=== PATIENT | female | born 1940 | race Caucasian/White ===

== ENCOUNTER 2020-06-07 13:37 | Inpatient (IN) ==
[2020-06-07] MEDS ORDERED: PANTOprazole 40 MG in SYRINGE 0 ML IV ONE (14:35)
[2020-06-07] MEDS ORDERED: ONDANSETRON INJ 2 MG/ML 2 ML VIAL IV STA (14:35)
[2020-06-07] MEDS ORDERED: SODIUM CHLORIDE 0.9% 1000ML 500 ML IV ONE (14:35)
--- NOTE | 2020-06-07 14:39 | Emergency Department Note ---
History of Present Illness General Chief complaint: Nausea Stated complaint: N/V Chest pressure Time Seen by Provider: 06/07/20 14:27 Source: patient History of Present Illness Provider complaint: Abdominal pain Onset (ago): week(s) Location: abdomen Radiation: back Severity: severe Pain Consistency: + constant Maximum Pain Intensity: 8 Quality: + sharp Relieved By: + none Associated symptoms: + chest pain, + nausea/vomiting and + shortness of breath (Chronically short of breath without change); no cough and no fever/chills This is an 79-year-old female who presents with abdominal pain starting a week ago. She states the pain is diffuse. She rates it an 8 out of 10 in severity. She describes it as sharp. No modifying factors. It is associated with nausea and vomiting. She states that she saw her GI doctor who told her that she had a very severe case of reflux disease based on an EGD performed last month. She was placed on new medications which she has had difficulty taking due to her nausea. She states also a week ago she developed chest pressure in the middle of her chest without radiation. She states she is always short of breath because of COPD. She is on oxygen daily. She denies any fever, cough or cold symptoms or urinary complaints. She does state that her urine output has been somewhat low recently and that she has had trouble having bowel movements. She denies any black or bloody stools. Home Medications Home Medications Medication Instructions Recorded Confirmed Type clonazepam 1 mg tablet 1 mg PO BID 10/11/19 06/07/20 History docusate sodium 100 mg capsule 100 mg PO BID 10/11/19 06/07/20 History levomilnacipran 80 mg capsule,24 80 mg PO QAM 10/11/19 06/07/20 History hr,extended release levothyroxine 88 mcg capsule 88 mcg PO QAM 10/11/19 06/07/20 History melatonin 10 mg tablet 10 mg PO HS 10/11/19 06/07/20 History potassium chloride 20 mEq 20 meq PO BID 10/11/19 06/07/20 History tablet,extended release spironolactone 25 mg tablet 25 mg PO BID 10/11/19 06/07/20 History trazodone 100 mg tablet 100 mg PO HS tab 10/11/19 06/07/20 History insulin glargine 100 unit/mL 20 unit SQ HS 12/04/19 06/07/20 History subcutaneous solution acetaminophen 500 mg capsule 1,000 mg PO Q6H PRN cap 01/26/20 06/07/20 History cholecalciferol (vitamin D3) 25 25 mcg PO DAILY 01/26/20 06/07/20 History mcg (1,000 unit) capsule furosemide 40 mg tablet 40 mg PO BID 01/26/20 06/07/20 History hydroxyzine HCl 25 mg tablet 50 mg PO TID PRN 01/26/20 06/07/20 History amitriptyline 25 mg PO HS 05/02/20 06/07/20 History sennosides [senna] 8.6 mg PO BID 05/02/20 06/07/20 History ropinirole 0.25 mg tablet 0.25 mg PO HS #30 tab 05/23/20 06/07/20 Rx famotidine 20 mg tablet 20 mg PO BID 30 Days #60 tab 05/31/20 06/07/20 Rx esomeprazole magnesium 40 mg 40 mg PO DAILY #30 cap 06/06/20 06/07/20 Rx capsule,delayed release cyanocobalamin (vitamin B-12) 1,000 mcg IM .Q3 MONTHS 06/07/20 06/07/20 History ondansetron HCl [Zofran] 4 mg PO Q8H PRN 06/07/20 06/07/20 History Allergies Allergy/AdvReac Type Severity Reaction Status Date / Time acetaminophen [From Percocet] Allergy Mild N/V Verified 05/31/20 10:48 adhesive tape Allergy Mild RED AND Verified 05/31/20 10:48 SORE butorphanol Allergy Mild N/V Verified 05/31/20 10:48 lubiprostone [From Amitiza] Allergy Mild Rash Verified 05/31/20 10:48 morphine Allergy Mild SWELLING Verified 05/31/20 10:48 oseltamivir [From Tamiflu] Allergy Mild N/V Verified 05/31/20 10:48 codeine Allergy Unknown SWELLING Verified 05/31/20 10:48 iodine Allergy Unknown Rash Verified 05/31/20 10:48 oxycodone Allergy Unknown AGITATION Verified 05/31/20 10:48 shellfish derived Allergy Unknown SWELLS Verified 05/31/20 10:48 Sulfa (Sulfonamide Allergy Unknown SWELLING Verified 05/31/20 10:48 Antibiotics) Past Med/Surg History Medical History Anxiety disorder Arthritis Asthma Back problem Cervical postlaminectomy syndrome Chronic kidney disease COPD (chronic obstructive pulmonary disease) DDD (degenerative disc disease) Dependence on continuous supplemental oxygen 2 LITERS Diabetes mellitus DVT (deep venous thrombosis) LEGS HTN (hypertension) Hyperlipidemia Obesity Postlaminectomy syndrome of lumbosacral region Presence of intrathecal pump [employer]-- DILAUDID AND SOMETHING ELSE NOT SURE Sleep apnea NO MACHINE - JUST OXYGEN Stomach ulcer HX Surgical History H/O colonoscopy H/O neck surgery H/O: hysterectomy History of knee replacement, total LEFT AND RIGHT History of open reduction and internal fixation (ORIF) procedure RIGHT FOOT Hx laparoscopic cholecystectomy Hx of tonsillectomy Hx of total shoulder replacement RIGHT AND LEFT Previous back surgery Family History Father Cancer Diabetes Hypertension Stomach ulcer Social History Smoking Status: Never smoker Second Hand Exposure: No; Hx Alcohol Use: No Hx Substance Use: No Preferred Language: Ghanaian Communication Ability: Effective Visual Impairment: No Limitations Hearing Ability: Use of Hearing Aid 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 and A total of 10 systems reviewed and were otherwise negative Physical Exam Vital Signs Vital Signs - 24 hr 06/07/20 13:29 06/07/20 13:53 06/07/20 14:03 Temperature 36.9 C Temperature Source Oral Pulse Rate 99 H 87 90 Pulse Rate from SpO2 Sensor 88 89 Respiratory Rate 22 15 11 L Respiratory Depth Normal Blood Pressure 136/82 136/82 Blood Pressure Mean 100 107 Pulse Oximetry 99 100 100 Oxygen Delivery Method Nasal Cannula Oxygen Flow Rate 2 Sepsis Recent Fever Within 48 Hours No Sepsis New/Unexplained Change in Mental Status N/A Sepsis Action Taken by Nursing No Action Required 06/07/20 14:15 06/07/20 14:30 06/07/20 14:45 Temperature Temperature Source Pulse Rate 89 93 H 94 H Pulse Rate from SpO2 Sensor 90 Respiratory Rate 14 15 23 Respiratory Depth Blood Pressure 171/101 H Blood Pressure Mean 124 Pulse Oximetry 100 Oxygen Delivery Method Nasal Cannula Oxygen Flow Rate 2 Sepsis Recent Fever Within 48 Hours Sepsis New/Unexplained Change in Mental Status Sepsis Action Taken by Nursing 06/07/20 15:00 06/07/20 15:21 06/07/20 15:30 Temperature Temperature Source Pulse Rate 89 83 78 Pulse Rate from SpO2 Sensor 89 Respiratory Rate 16 21 20 Respiratory Depth Blood Pressure Blood Pressure Mean Pulse Oximetry 100 Oxygen Delivery Method Oxygen Flow Rate Sepsis Recent Fever Within 48 Hours Sepsis New/Unexplained Change in Mental Status Sepsis Action Taken by Nursing 06/07/20 15:31 06/07/20 15:45 06/07/20 16:00 Temperature Temperature Source Pulse Rate 80 81 83 Pulse Rate from SpO2 Sensor 82 82 83 Respiratory Rate 21 15 16 Respiratory Depth Blood Pressure 156/81 H 171/101 H Blood Pressure Mean 110 117 Pulse Oximetry 100 100 100 Oxygen Delivery Method Oxygen Flow Rate Sepsis Recent Fever Within 48 Hours Sepsis New/Unexplained Change in Mental Status Sepsis Action Taken by Nursing 06/07/20 16:15 Temperature Temperature Source Pulse Rate 80 Pulse Rate from SpO2 Sensor 80 Respiratory Rate 20 Respiratory Depth Blood Pressure Blood Pressure Mean Pulse Oximetry 98 Oxygen Delivery Method Oxygen Flow Rate Sepsis Recent Fever Within 48 Hours Sepsis New/Unexplained Change in Mental Status Sepsis Action Taken by Nursing Constitutional: Vital signs reviewed. Eyes: Pupils are equal round reactive to light. Conjunctiva are noninjected. ENT: Pharynx is clear without erythema or exudate. Mucous membranes are dry. Neck supple without meningeal signs. Respiratory: Clear to auscultation bilaterally. Breath sounds are equal bilaterally. Cardiovascular: Regular rate and rhythm. No rubs or gallops. GI: Soft, distended with diffuse tenderness. No guarding. Bowel sounds are present. Musculoskeletal: No peripheral edema. No lower extremity tenderness. Integumentary: No cyanosis. or jaundice. Neurological: The patient is awake and alert. No focal deficits. Psychiatric: Anxious. Course Administered Medications Discontinued Medications Fentanyl Citrate (Fentanyl Citrate 100 Mcg/2 Ml Vial) 50 mcg IV NOW STA Stop: 06/07/20 15:44 Last Admin: 06/07/20 15:57 Dose: 50 mcg Documented by: [id number] Sodium Chloride (Nss 1000ml) 500 mls @ 999 mls/hr IV .Q31M ONE Stop: 06/07/20 15:05 Last Infusion: 06/07/20 15:46 Dose: 0 mls/hr Documented by: [id number] Admin: 06/07/20 14:55 Dose: 999 mls/hr Documented by: [id number] Pantoprazole Sodium 40 mg/ (Syringe) 10 mls @ 5 mls/min IV NOW ONE Stop: 06/07/20 14:36 Last Admin: 06/07/20 15:18 Dose: 5 mls/min Documented by: [id number] Ondansetron HCl (Ondansetron Inj 2 Mg/Ml 2 Ml Vial) 4 mg IV NOW STA Stop: 06/07/20 14:36 Last Admin: 06/07/20 14:55 Dose: 4 mg Documented by: [id number] Medical Decision Making Differential Diagnosis Dehydration, gastritis, GERD, pancreatitis, bowel obstruction, IBS, [place] Medical Records Attestation: I reviewed the patient's medical records. The patient had an EGD late last month which showed gastritis. She did see Dr. Vieyra of gastroenterology earlier this month who placed her on Pepcid, Protonix and Bentyl for GERD. Home Medications Current Medication List: was personally reviewed by me Laboratory Data Attestation: I reviewed the patient's lab results. Result diagrams: 06/07/20 14:51 06/07/20 14:51 Lab Results 06/07/20 06/07/20 06/07/20 Range/Units 14:51 14:51 14:51 WBC 13.99 H (4.8-10.8) K/uL RBC 4.64 (4.2-5.4) M/uL Hgb 13.4 (12.0-16.0) g/dL Hct 41.4 (37-47) % MCV 89.2 (80-100) fL MCH 28.9 (25-34) pg MCHC 32.4 (32-36) g/dL RDW Std Deviation 41.5 (36.4-46.3) fL RDW Coeff of Kindra 12.8 (11.5-14.5) % Plt Count 321 (130-400) K/uL MPV 9.4 (7.4-10.4) fL Immature Gran % (Auto) 0.2 % Neut % (Auto) 74.3 % Lymph % (Auto) 16.9 % Coleman % (Auto) 7.4 % Eos % (Auto) 1.1 % Baso % (Auto) 0.1 % Neut # (Auto) 10.40 H (1.4-6.5) K/uL Lymph # (Auto) 2.36 (1.2-3.4) K/uL Coleman # (Auto) 1.03 H (0.11-0.59) K/uL Eos # (Auto) 0.15 (0-0.5) K/uL Baso # (Auto) 0.02 (0-0.2) K/uL Immature Gran # (Auto) 0.03 H (0.00-0.02) K/uL PT 10.6 (9.0-12.0) Seconds INR 1.0 (0.9-1.1) APTT 25.7 (21.0-31.0) Seconds PTT Ratio 0.9 Sodium 137 (136-145) mmol/L Potassium 4.3 (3.5-5.1) mmol/L Chloride 101 (98-107) mmol/L Carbon Dioxide 34 H (21-32) mmol/L Anion Gap 1.0 L (3-11) BUN 27 H (7-18) mg/dl Creatinine 1.66 H (0.6-1.2) mg/dl Est Cr Clr Drug Dosing 30.0 ml/min Est GFR ( Amer) 33.4 Est GFR (Non-Af Amer) 28.8 BUN/Creatinine Ratio 16.4 (10-20) Glucose 117 H (70-99) mg/dl Calcium 9.9 (8.5-10.1) mg/dl Total Bilirubin 0.4 (0.2-1) mg/dl AST 12 L (15-37) U/L ALT 24 (12-78) U/L Alkaline Phosphatase 104 (45-117) U/L Troponin I < 0.015 (0-0.045) ng/ml Total Protein 8.1 (6.4-8.2) gm/dl Albumin 3.7 (3.4-5.0) gm/dl Globulin 4.4 H (2.5-4.0) gm/dl Albumin/Globulin Ratio 0.8 L (0.9-2) Lipase 89 (73-393) U/L Imaging Data Radiologist's Impression: CT SCAN OF THE ABDOMEN AND PELVIS WITHOUT IV CONTRAST CLINICAL HISTORY: Generalized abdominal pain. COMPARISON STUDY: Abdominal CT dated 09/07/2019. TECHNIQUE: CT scan of the abdomen and pelvis is performed from the lung bases to the proximal femora. Images are reviewed in the axial, sagittal, and coronal planes. IV contrast was not administered for this examination. Note that the examination was performed in suboptimal fashion without oral and IV contrast. A dose lowering technique was utilized adhering to the principles of ALARA. CT DOSE: 995.85 mGy.cm FINDINGS: Lung bases: The heart is normal in size and without pericardial effusion. The lung bases are clear noting bibasilar scarring/atelectasis. There is a small hiatal hernia. Liver: The unenhanced liver is normal in size, contour, and attenuation. There is no intrahepatic biliary ductal dilatation. Gallbladder: Surgically absent. Spleen: Normal in size and attenuation. Pancreas: The unenhanced pancreas is atrophic and grossly unremarkable. Adrenal glands: Unremarkable. Kidneys: The unenhanced kidneys demonstrate cortical atrophy and are without hydronephrosis. There are no renal calculi identified. Subcentimeter complex cy sts are present in both kidneys. Abdominal vasculature: The abdominal aorta is normal in course and caliber noting mild atherosclerotic calcification. Bowel: The small bowel and colon are normal in course and caliber. The appendix is not identified and reported surgically absent. Peritoneum: There is no intraperitoneal free air or abdominal ascites. Intracranial surgical clips are noted. Lymphadenopathy: None. Pelvic viscera: The bladder is mildly distended but otherwise normal in appearan ce. The uterus is surgically absent. No adnexal lesion is seen. Skeletal structures: An intrathecal device is present in the left lower quadrant abdominal wall. The catheter enters the central spinal canal in the lower thoracic region. The skeletal structures are osteopenic. There is a chronic comp ression deformity of T12 with evidence of previous vertebroplasty. A mild superior end plate compression deformity is also seen in T11. There is moderate to advanced and the sacral spondylosis. No lytic or blastic lesions are seen. Postoperative change is noted in the right femur. Arthritic change is seen in the hips, right greater than left. IMPRESSION: 1. Suboptimal examination without oral and IV contrast. 2. No acute infectious or inflammatory findings are identified in the abdomen or pelvis. 3. There is no bowel obstruction. 4. Chronic and postoperative changes as above. ACT 112: Negative or not required by law. Electronically signed by: Bunny Garland M.D. 06/07/2020 3:33 PM XR chest 1V portable HISTORY: 79 years-old Female Chest Pain acute atypical chest pain COMPARISON: Chest radiograph 11/03/2008 TECHNIQUE: Portable AP view of the chest FINDINGS: Cardiac silhouette is mildly enlarged, unchanged. There is no pneumothorax, pleural effusion, airspace consolidation or overt pulmonary edema. Mild chronic interstitial coarsening. Degenerative changes of the spine. Left shoulder total joint arthroplasty. IMPRESSION: No acute process. ACT 112: Negative or not required by law. The above report was generated using voice recognition software. It may contain grammatical, syntax or spelling errors. Electronically signed by: Guerrero Brizuela M.D. 06/07/2020 3:06 PM ECG Data Attestation: I personally reviewed and interpreted this ECG as follows: Indication: + abdominal pain and + chest pain Rate (beats per minute): 93 Rhythm: + normal sinus ECG Intervals/blocks: + First degree AV block ECG ST segments: + T-wave inversions ECG Findings: + Q waves; no PVCs MDM Narrative I did evaluate the patient as noted above. The patient is presenting with vomiting and abdominal pain she has had for a week. She also complains of chest pressure. She was recently diagnosed with reflux disease and placed on a PPI, H2 kadie and mental. On examination she is dehydrated. She has diffuse tenderness throughout her abdomen. IV access was established. I did treat her with IV fentanyl and Zofran. She was also given normal saline IV. I did place an order for continuous cardiac monitoring. The monitor showed normal sinus rhythm at a rate of 88 bpm. I did order and personally review the patient's 12- lead EKG as described above. She has some T wave inversions in the anterior leads but no ST elevations. I did order and personally reviewed the images of the patient's chest x-ray as described above. Chest x-ray demonstrates no acute process. I did order a urine analysis. I did order and review the patient's blood work as noted in the electronic medical record. Her white blood cell count is 14,000. She is not anemic. Electrolytes are unremarkable. Her creatinine is 1.6 with a BUN of 27. Troponin is negative. LFTs and lipase are unremarkable. I did order a CT of the abdomen and pelvis. I did review the images myself as well as the radiology report as described above. There is no evidence of acute process. I did discuss the test results with the patient. She is feeling better after the fentanyl IV. She does state that she is extremely nervous and would like something for her nerves. She was given 0.5 mg of Ativan sublingually. She will be hospitalized for further care and evaluation and repeat cardiac biomarkers. I did discuss case with the hospitalist and employment evaluator/case manager. Impression & Plan Abdominal pain, Chest pain, Vomiting, Acute dehydration Discharge Plan Visit Data Chief Complaint: Nausea Stated Complaint: N/V Chest pressure ED Provider: Juvenal Wallis Prescriptions Prescriptions: No Action acetaminophen 500 mg capsule 1,000 mg PO Q6H PRN (Reason: Pain) RF: 0 cholecalciferol (vitamin D3) 25 mcg (1,000 unit) capsule 25 mcg PO DAILY RF: 0 hydroxyzine HCl 25 mg tablet 50 mg PO TID PRN (Reason: Anxiety) RF: 0 furosemide [Lasix] 40 mg tablet 40 mg PO BID RF: 0 potassium chloride 20 mEq tablet extended release 20 meq PO BID RF: 0 trazodone 100 mg tablet 100 mg PO HS RF: 0 clonazepam 1 mg tablet 1 mg PO BID RF: 0 Fetzima 80 mg capsule,extended release 24 hr 80 mg PO QAM RF: 0 spironolactone 25 mg tablet 25 mg PO BID RF: 0 melatonin 10 mg tablet 10 mg PO HS RF: 0 levothyroxine 88 mcg capsule 88 mcg PO QAM RF: 0 docusate sodium 100 mg capsule 100 mg PO BID RF: 0 Lantus U-100 Insulin 100 unit/mL solution 20 unit SQ HS RF: 0 esomeprazole magnesium [Nexium] 40 mg capsule,delayed release(DR/EC) 40 mg PO DAILY Qty: 30 RF: 2 famotidine 20 mg tablet 20 mg PO BID 30 Days Qty: 60 RF: 2 ropinirole 0.25 mg tablet 0.25 mg PO HS Qty: 30 RF: 5 cyanocobalamin (vitamin B-12) 1,000 mcg/mL solution 1,000 mcg IM .Q3 MONTHS RF: 0 ondansetron HCl [Zofran] 4 mg tablet 4 mg PO Q8H PRN (Reason: Nausea And Vomiting) RF: 0 sennosides [senna] 8.6 mg Tablet 8.6 mg PO BID RF: 0 amitriptyline 25 mg Tablet 25 mg PO HS RF: 0
--- NOTE | 2020-06-07 14:56 | Electrocardiogram Report ---
Test Reason : Blood Pressure : / mmHG Vent. Rate : 093 BPM Atrial Rate : 093 BPM P-R Int : 228 ms QRS Dur : 088 ms QT Int : 332 ms P-R-T Axes : 059 017 -04 degrees QTc Int : 412 ms Sinus rhythm with 1st degree A-V block Moderate voltage criteria for LVH, may be normal variant Possible Inferior infarct (cited on or before 21-DEC-2000) Abnormal ECG When compared with ECG of 19-FEB-2003 13:58, DE interval has increased Confirmed by Marcelino Carbajal ([id number]) on 06/07/2020 2:55:44 PM Referred By: ER Confirmed By:Marcelino Carbajal
--- NOTE | 2020-06-07 15:07 | XRay Report ---
XR chest 1V portable HISTORY: 79 years-old Female Chest Pain acute atypical chest pain COMPARISON: Chest radiograph 11/03/2008 TECHNIQUE: Portable AP view of the chest FINDINGS: Cardiac silhouette is mildly enlarged, unchanged. There is no pneumothorax, pleural effusion, airspac e consolidation or overt pulmonary edema. Mild chronic interstitial coarsening. Degenerative changes of the spine. Left shoulder total joint arthroplasty. IMPRESSION: No acute process. ACT 112: Negative or not required by law. The above report was generated using voice recognition software. It may contain grammatical, syntax o r spelling errors. Electronically signed by: Guerrero Brizuela M.D. 06/07/2020 3:06 PM
[2020-06-07 15:10] LABS: Basophils # (auto) 0.02 K/uL (0-0.2); Basophils % (auto) 0.1 %; Eosinophils # (auto) 0.15 K/uL (0-0.5); Eosinophils % (auto) 1.1 %; Hematocrit (blood only) 41.4 % (37-47); Hemoglobin 13.4 g/dL (12.0-16.0); Immature Granulocytes # (auto) 0.03 K/uL (0.00-0.02); Immature Granulocytes % (auto) 0.2 %; Lymphocytes # (auto) 2.36 K/uL (1.2-3.4); Lymphocytes % (auto) 16.9 %; Mean Corpuscular Hemoglobin 28.9 pg (25-34); Mean Corpuscular Hgb Conc 32.4 g/dL (32-36); Mean Corpuscular Volume 89.2 fL (80-100); Mean Platelet Volume 9.4 fL (7.4-10.4); Monocytes # (auto) 1.03 K/uL (0.11-0.59); Monocytes % (auto) 7.4 %; Neutrophils % (auto) 74.3 %; Platelet Count 321 K/uL (130-400); RDW Coefficient of Variation 12.8 % (11.5-14.5); RDW Standard Deviation 41.5 fL (36.4-46.3); Red Blood Count 4.64 M/uL (4.2-5.4); White Blood Count 13.99 K/uL (4.8-10.8)
[2020-06-07 15:26] LABS: Alanine Aminotransferase 24 U/L (12-78); Albumin Level 3.7 gm/dl (3.4-5.0); Aspartate Aminotransferase 12 U/L (15-37); BUN Creatinine Ratio 16.4 (10-20); Blood Urea Nitrogen 27 mg/dl (7-18); Calcium 9.9 mg/dl (8.5-10.1); Carbon Dioxide 34 mmol/L (21-32); Chloride 101 mmol/L (98-107); Est GFR (African American) 33.4; Est GFR (Non-African American) 28.8; Glucose 117 mg/dl (70-99); Lipase 89 U/L (73-393); Potassium 4.3 mmol/L (3.5-5.1); Sodium 137 mmol/L (136-145)
[2020-06-07 15:31] LABS: Albumin Globulin Ratio 0.8 (0.9-2); Alkaline Phosphatase 104 U/L (45-117); Bilirubin,Total 0.4 mg/dl (0.2-1); Globulin 4.4 gm/dl (2.5-4.0); Total Protein 8.1 gm/dl (6.4-8.2); Troponin I < 0.015 ng/ml (0-0.045)
--- NOTE | 2020-06-07 15:34 | CT Scan Report ---
CT SCAN OF THE ABDOMEN AND PELVIS WITHOUT IV CONTRAST CLINICAL HISTORY: Generalized abdominal pain. COMPARISON STUDY: Abdominal CT dated 09/07/2019. TECHNIQUE: CT scan of the abdomen and pelvis is performed from the lung bases to the proximal femora. Images are reviewed in the axial, sagittal, and coronal planes. IV contrast was not administered for this examination. Note that the examination was performed in suboptimal fashion without oral and IV contrast. A dose lowering technique was utilized adhering to the principles of ALARA. CT DOSE: 995.85 mGy.cm FINDINGS: Lung bases: The heart is normal in size and without pericardial effusion. The lung bases are clear no ting bibasilar scarring/atelectasis. There is a small hiatal hernia. Liver: The unenhanced liver is normal in size, contour, and attenuation. There is no intrahepatic brendon iary ductal dilatation. Gallbladder: Surgically absent. Spleen: Normal in size and attenuation. Pancreas: The unenhanced pancreas is atrophic and grossly unremarkable. Adrenal glands: Unremarkable. Kidneys: The unenhanced kidneys demonstrate cortical atrophy and are without hydronephrosis. There ar e no renal calculi identified. Subcentimeter complex cysts are present in both kidneys. Abdominal vasculature: The abdominal aorta is normal in course and caliber noting mild atheroscleroti c calcification. Bowel: The small bowel and colon are normal in course and caliber. The appendix is not identified an d reported surgically absent. Peritoneum: There is no intraperitoneal free air or abdominal ascites. Intracranial surgical clips ar e noted. Lymphadenopathy: None. Pelvic viscera: The bladder is mildly distended but otherwise normal in appearance. The uterus is savannah gically absent. No adnexal lesion is seen. Skeletal structures: An intrathecal device is present in the left lower quadrant abdominal wall. The catheter enters the central spinal canal in the lower thoracic region. The skeletal structures are os teopenic. There is a chronic compression deformity of T12 with evidence of previous vertebroplasty. A mild superior end plate compression deformity is also seen in T11. There is moderate to advanced and the sacral spondylosis. No lytic or blastic lesions are seen. Postoperative change is noted in the r ight femur. Arthritic change is seen in the hips, right greater than left. IMPRESSION: 1. Suboptimal examination without oral and IV contrast. 2. No acute infectious or inflammatory findings are identified in the abdomen or pelvis. 3. There is no bowel obstruction. 4. Chronic and postoperative changes as above. ACT 112: Negative or not required by law. Electronically signed by: Bunny Garland M.D. 06/07/2020 3:33 PM
[2020-06-07] MEDS ORDERED: fentaNYL citrate 100 MCG/2 ML VIAL IV STA (15:43)
[2020-06-07 15:49] LABS: Partial Thromboplastin Ratio 0.9; Partial Thromboplastin Time 25.7 Seconds (21.0-31.0); Prothrombin Time 10.6 Seconds (9.0-12.0)
--- NOTE | 2020-06-07 16:55 | History & Physical Report ---
Date of Service June 07, 2020 Assessment & Plan (1) Nausea and vomiting: Ondansetron IV 4 mg every 4 hourly as needed ?secondary to GERD vs. anxiety vs. pain Hold diuretics (no prior history of CHF per patient), start IV fluids Consult gastroenterology (2) GERD (gastroesophageal reflux disease): Due to nausea and vomiting will switch medication to IV Given recent EGD will start carafate Switch esomeprazole to pantoprazole IV Switch famotidine PO to IV (3) Bloating: Treatment for GERD as above (4) Abdominal pain: Difficult for patient to delineate her chronic from any acute pain. Mostly appears to be chronic at this time. CT abdomen pelvis reassuring. Consult pain management with regards to her most severe pain radiating down her sides which I suspect is related to her back. (5) IBS (irritable bowel syndrome): Continue Bentyl (6) Cervical postlaminectomy syndrome: (7) Anxiety disorder: Unclear if this is significantly contributing. Continue her usual clonazepam 1mg PO BID, Levomilnacipran 80mg PO QAM, Amitriptyline 25mg PO HS, trazodone 100mg PO HS. Ativan 0.5mg IV PRN. (8) Chronic constipation: Stool burden does not appear excessive on CT. Patient reports requiring enemas at home. (9) Diabetes mellitus: HbA1C unknown. Repeat with AM labs. Novolog correction factor. (10) HTN (hypertension): Hold diuretics due to reduced oral intake. No Hx CHF per patient. (11) Restless legs syndrome (RLS): (12) Thyroid disease: TSH added to ER labs. Continue levothyroxine 88 mcg PO daily (13) Presence of intrathecal pump: (14) Sleep apnea: Not on CPAP. Monitor for nocturnal hypoxia. (15) COPD (chronic obstructive pulmonary disease): No acute exacerbation. On no maintenance inhalers. Admission and Anticipated Discharge Date Admission Date: 06/07/2020 History of Present Illness Chief Complaint: Nausea, vomiting, abdominal pain Primary Care Provider: Ena Coreas MD Miriam Rubalcava is an 79 year old female who presents to the ER with nausea, vomiting and abdominal pain. Difficult to get a clear history from the patient as to what symptoms are chronic or acute. She reports having nausea and vomiting severely getting progressively worse over the last week. The main thing she is concerned about is getting something for her "nerves". She notes multiple prior similar episodes for which she has been hospitalized in [facility] but tells me they did not do anything for her except for IV fluids. When I mentioned giving Ativan for her anxiety her notes she has had this on multiple prior hospitalizations which has been helpful. She was recently diagnosed with uncontrolled GERD and her omeprazole was switched to pantoprazole BID although esomeprazole listed on her med rec. She is unable to tell me her medications or why/when they were changed. She is unsure whether the change in medications is what made things worse. She has multiple chronic pains. The most severe of which appears to be coming from her back radiating down both her sides. She also reports her problems have been since her pain pump was replaced approximately 3 years ago and wonders whether it is working problem. She reports severity 9/10 pain and is requesting something for this. It is worse on any movement. She was recently referred to neurosurgery at [place] for evaluation by neurology for chronic thoracolumbar pain/radiculopathy/spinal stenosis and follows with pain management with multiple side effects to opiates including morphine, codeine and oxycodone listed in EHR. She is unable to tell me if any other pain medications have worked before in the past. She notes taking acetaminophen at home but this doesn't work. In addition to her back pain she also has suprapubic pain but is moderate compared to her other pains. Unable to tell me much about this other than it is chronic. In addition she has epigastric pain, worse on palpation. No worse with oral intake. Allergies Allergy/AdvReac Type Severity Reaction Status Date / Time acetaminophen [From Percocet] Allergy Mild N/V Verified 05/31/20 10:48 adhesive tape Allergy Mild RED AND Verified 05/31/20 10:48 SORE butorphanol Allergy Mild N/V Verified 05/31/20 10:48 lubiprostone [From Amitiza] Allergy Mild Rash Verified 05/31/20 10:48 morphine Allergy Mild SWELLING Verified 05/31/20 10:48 oseltamivir [From Tamiflu] Allergy Mild N/V Verified 05/31/20 10:48 codeine Allergy Unknown SWELLING Verified 05/31/20 10:48 iodine Allergy Unknown Rash Verified 05/31/20 10:48 oxycodone Allergy Unknown AGITATION Verified 05/31/20 10:48 shellfish derived Allergy Unknown SWELLS Verified 05/31/20 10:48 Sulfa (Sulfonamide Allergy Unknown SWELLING Verified 05/31/20 10:48 Antibiotics) Home Medications Home Medications Medication Instructions Recorded Confirmed Type clonazepam 1 mg tablet 1 mg PO BID 10/11/19 06/07/20 History docusate sodium 100 mg capsule 100 mg PO BID 10/11/19 06/07/20 History levomilnacipran 80 mg capsule,24 80 mg PO QAM 10/11/19 06/07/20 History hr,extended release levothyroxine 88 mcg capsule 88 mcg PO QAM 10/11/19 06/07/20 History melatonin 10 mg tablet 10 mg PO HS 10/11/19 06/07/20 History potassium chloride 20 mEq 20 meq PO BID 10/11/19 06/07/20 History tablet,extended release spironolactone 25 mg tablet 25 mg PO BID 10/11/19 06/07/20 History trazodone 100 mg tablet 100 mg PO HS tab 10/11/19 06/07/20 History insulin glargine 100 unit/mL 20 unit SQ HS 12/04/19 06/07/20 History subcutaneous solution acetaminophen 500 mg capsule 1,000 mg PO Q6H PRN cap 01/26/20 06/07/20 History cholecalciferol (vitamin D3) 25 25 mcg PO DAILY 01/26/20 06/07/20 History mcg (1,000 unit) capsule furosemide 40 mg tablet 40 mg PO BID 01/26/20 06/07/20 History hydroxyzine HCl 25 mg tablet 50 mg PO TID PRN 01/26/20 06/07/20 History amitriptyline 25 mg PO HS 05/02/20 06/07/20 History sennosides [senna] 8.6 mg PO BID 05/02/20 06/07/20 History ropinirole 0.25 mg tablet 0.25 mg PO HS #30 tab 05/23/20 06/07/20 Rx famotidine 20 mg tablet 20 mg PO BID 30 Days #60 tab 05/31/20 06/07/20 Rx esomeprazole magnesium 40 mg 40 mg PO DAILY #30 cap 06/06/20 06/07/20 Rx capsule,delayed release cyanocobalamin (vitamin B-12) 1,000 mcg IM .Q3 MONTHS 06/07/20 06/07/20 History ondansetron HCl [Zofran] 4 mg PO Q8H PRN 06/07/20 06/07/20 History Past Med/Surg History Medical History Anxiety disorder Arthritis Asthma Back problem Cervical postlaminectomy syndrome Chronic kidney disease COPD (chronic obstructive pulmonary disease) DDD (degenerative disc disease) Dependence on continuous supplemental oxygen 2 LITERS Diabetes mellitus DVT (deep venous thrombosis) LEGS HTN (hypertension) Hyperlipidemia Obesity Postlaminectomy syndrome of lumbosacral region Presence of intrathecal pump [employer]-- DILAUDID AND SOMETHING ELSE NOT SURE Sleep apnea NO MACHINE - JUST OXYGEN Stomach ulcer HX Surgical History H/O colonoscopy H/O neck surgery H/O: hysterectomy History of knee replacement, total LEFT AND RIGHT History of open reduction and internal fixation (ORIF) procedure RIGHT FOOT Hx laparoscopic cholecystectomy Hx of tonsillectomy Hx of total shoulder replacement RIGHT AND LEFT Previous back surgery Family History Father Cancer Diabetes Hypertension Stomach ulcer Social History Smoking Status: Never smoker Second Hand Exposure: No; Do You Dip or Chew Tobacco: No; Tobacco Cessation Education Requested by Patient: No Hx Alcohol Use: No Hx Substance Use: No Preferred Language: Thai Communication Ability: Effective Visual Impairment: No Limitations Hearing Ability: Use of Hearing Aid Team Leader/Research Psychologist Required: No Beliefs That Will Affect Care: None marital status: Current Living Situation: Spouse current occupational status: retired Other Information That Helps Us Care for You: No Feels Safe at Home: Yes Safety Concerns: Feels Safe At This Time Assistive Devices: Glasses and Oxygen - Continuous Review of Systems Review of Systems: All systems reviewed & are unremarkable except as noted in HPI & below Constitutional: + body aches, + fatigue, + malaise, + weakness and + insomnia; no fever and no chills Eyes: no problem reported Ear, Nose, Mouth, Throat: + nasal congestion Respiratory: no cough Gastrointestinal: + abdominal pain, + bloating, + heartburn, + dysphagia and + diarrhea/loose stools Genitourinary: no dysuria, no difficulty urinating and no urinary frequency Integumentary: no rash Neurologic: + unsteadiness and + generalized weakness; no radiating pain Psychiatric: + hopelessness Physical Exam Constitutional: + morbidly obese; + not well nourished Eyes: + anicteric sclerae; normal pupil size ENMT: external ear and nose normal, oropharynx normal Neck: + short neck and + thick neck Respiratory: normal respiratory effort, lungs clear to auscultation Cardiovascular: Rate/Rhythm: regular rate and regular rhythm Heart Sounds: no murmur Extremities: + pedal edema (1+ to mid shins equal b/l) Gastrointestinal (Abdomen): Inspection/Auscultation: + abdomen distended (ob courtney abdomen) and normal bowel sounds Percussion/Palpation: + abdomen tender (suprapubic and epigastric) and abdomen soft; no guarding and abdomen not rigid Musculoskeletal: Spine: + paraspinal tenderness Skin: no rashes, warm and dry Neurologic: moves all extremities and awake; not confused Speech / Cognition: normal speech Motor/Sensory: no tremor Psychiatric: Orientation: alert and oriented x 3 Affect: + anxious affect Mood: + anxious mood Genitourinary: no CVA tenderness Results & Data Results & Data ([facility]) Vital Signs (Past 12 Hours) Vital Signs Temp Pulse Resp BP Pulse Ox 06/07/20 16:15 80 20 98 06/07/20 16:00 83 16 171/101 H 100 06/07/20 15:45 81 15 100 06/07/20 15:31 80 21 156/81 H 100 06/07/20 15:30 78 20 06/07/20 15:21 83 21 06/07/20 15:00 89 16 100 06/07/20 14:45 94 H 23 171/101 H 06/07/20 14:30 93 H 15 06/07/20 14:15 89 14 100 06/07/20 14:03 90 11 L 100 06/07/20 13:53 87 15 136/82 100 06/07/20 13:29 36.9 C 99 H 22 136/82 99 Diagnostic Findings XR chest 1V portable IMPRESSION: No acute process. CT SCAN OF THE ABDOMEN AND PELVIS WITHOUT IV CONTRAST IMPRESSION: 1. Suboptimal examination without oral and IV contrast. 2. No acute infectious or inflammatory findings are identified in the abdomen or pelvis. 3. There is no bowel obstruction. 4. Chronic and postoperative changes as above. ECG Indication: abdominal pain Rate (beats per minute): 93 Rhythm: normal sinus Findings: + other (LVH) and + 1st degree AV block Comparison ECG Date: from Change: no significant change Code Status & VTE Plan Code Status All treatment outside of a cardiac arrest VTE Prophylaxis Plan VTE Prophylaxis will be ordered: Yes PG Care Time/CCT Total # of Minutes Spent Total Time Spent with Patient: Total time spent is greater than 50% in coordination of care (as documented) at patient's floor/unit and/or counseling patient: Coding Level of Care Code 80501 OBS Care - Level 3 Diagnoses Nausea and vomiting R11.2 GERD (gastroesophageal reflux disease) K21.9 Bloating R14.0 Abdominal pain R10.9 IBS (irritable bowel syndrome) K58.9 Cervical postlaminectomy syndrome M96.1 Anxiety disorder F41.9 Chronic constipation K59.09 Diabetes mellitus E11.9 HTN (hypertension) I10 Restless legs syndrome (RLS) G25.81 Thyroid disease E07.9 Presence of intrathecal pump Z97.8 Sleep apnea G47.30 COPD (chronic obstructive pulmonary disease) J44.9
[2020-06-07] MEDS ORDERED: LORazepam 1 MG TAB SL STA (17:27)
[2020-06-07] MEDS ORDERED: LORazepam 0.5 MG TAB ONE (17:39)
[2020-06-07] MEDS ORDERED: ONDANSETRON INJ 2 MG/ML 2 ML VIAL ONE (18:42)
[2020-06-07] MEDS ORDERED: hydrOXYzine HCl 25 MG TAB PO PRN (19:33)
[2020-06-07] MEDS: clonazePAM 1 MG TAB PO SCH (20:18)
[2020-06-07] MEDS: ACETAMINOPHEN 325 MG TAB PO PRN (20:19)
[2020-06-07] MEDS ORDERED: LORazepam 1 MG/2 ML VIAL IV STA (20:23)
[2020-06-07] MEDS: LORazepam 0.5 MG/1 ML VIAL IV PRN (20:29)
[2020-06-07] MEDS ORDERED: POTASSIUM CHLORIDE CRTAB 20 MEQ TABCR PO SCH (21:00)
[2020-06-07] MEDS: MELATONIN 3 MG TAB PO SCH (21:09)
[2020-06-07] MEDS: SENNA 8.6 MG TAB PO SCH (21:09)
[2020-06-07] MEDS: rOPINIRole HCL 0.25 MG TABLET PO SCH (21:09)
[2020-06-07] MEDS: DOCUSATE SODIUM 100 MG CAP PO SCH (21:10)
[2020-06-07] MEDS: traZODone HCL 100 MG TAB PO SCH (21:10)
[2020-06-07] MEDS: AMITRIPTYLINE HCL 25 MG TAB PO SCH (21:10)
[2020-06-07] MEDS: FAMOTIDINE 20 MG in SYRINGE 3 ML IV SCH (21:10)
[2020-06-07] MEDS: NSS + 20MEQ KCL 20 MEQ/1,000 ML BAG IV SCH (21:11)
[2020-06-07] MEDS: SUCRALFATE 1 GM/10 ML UDC PO SCH (21:14)
[2020-06-07] MEDS: ALUMINUM/MAGNESIUM SUSP 18 ML, LIDOCAINE HCL VISCOUS 2% 6 ML, BARCODE IDENTIFIER 1 EA PO ONE ×2 (22:37→23:32)
[2020-06-07] MEDS ORDERED: GLUCOSE 10 TABS/TUBE PO PRN (22:59)
[2020-06-07] MEDS ORDERED: GLUCAGON FOR INJ 1 MG VIAL SQ PRN (22:59)
[2020-06-07] MEDS ORDERED: GLUCOSE 40% GEL 15 GM TUBE PO PRN (22:59)
[2020-06-07] MEDS ORDERED: DEXTROSE 50% 50 ML SYRINGE IV PRN (22:59)
[2020-06-07] MEDS ORDERED: CARBOHYDRATES FOR HYPOGLYCEMIA PO PRN (22:59)
[2020-06-07] MEDS: ONDANSETRON INJ 2 MG/ML 2 ML VIAL IV PRN (23:19)
[2020-06-08] MEDS: NSS + 20MEQ KCL 20 MEQ/1,000 ML BAG IV SCH (04:18)
[2020-06-08] MEDS: LEVOTHYROXINE SODIUM 88 MCG TABLET PO SCH (04:18)
[2020-06-08] MEDS ORDERED: Nursing to Pharmacy Communication SCH ×2 (05:45→15:45)
[2020-06-08] MEDS: INSULIN ASPART 100 UNITS/ML 3 ML PEN SC SCH ×4 (05:52→21:11)
[2020-06-08] MEDS: ONDANSETRON INJ 2 MG/ML 2 ML VIAL IV PRN ×2 (05:57→13:06)
[2020-06-08 06:17] LABS: Basophils # (auto) 0.04 K/uL (0-0.2); Basophils % (auto) 0.4 %; Eosinophils # (auto) 0.16 K/uL (0-0.5); Eosinophils % (auto) 1.4 %; Hematocrit (blood only) 37.2 % (37-47); Immature Granulocytes # (auto) 0.03 K/uL (0.00-0.02); Immature Granulocytes % (auto) 0.3 %; Lymphocytes # (auto) 3.01 K/uL (1.2-3.4); Lymphocytes % (auto) 26.7 %; Mean Corpuscular Hemoglobin 29.2 pg (25-34); Mean Corpuscular Hgb Conc 32.3 g/dL (32-36); Mean Corpuscular Volume 90.5 fL (80-100); Mean Platelet Volume 9.3 fL (7.4-10.4); Monocytes # (auto) 0.74 K/uL (0.11-0.59); Monocytes % (auto) 6.6 %; Neutrophils # (auto) 7.28 K/uL (1.4-6.5); Neutrophils % (auto) 64.6 %; Platelet Count 313 K/uL (130-400); Red Blood Count 4.11 M/uL (4.2-5.4); White Blood Count 11.26 K/uL (4.8-10.8)
[2020-06-08 06:50] LABS: Albumin Level 3.1 gm/dl (3.4-5.0); BUN Creatinine Ratio 14.7 (10-20); Calcium 8.9 mg/dl (8.5-10.1); Creatinine Clr Calc Pharmacy 31.4 ml/min; Est GFR (African American) 36.3; Est GFR (Non-African American) 31.3
[2020-06-08 06:52] LABS: Albumin Globulin Ratio 0.8 (0.9-2); Bilirubin,Total 0.6 mg/dl (0.2-1); Globulin 3.9 gm/dl (2.5-4.0)
[2020-06-08] MEDS ORDERED: INSULIN ASPART 100 UNITS/ML 3 ML PEN SC SCH (07:30)
[2020-06-08 07:31] LABS: Estimated Average Glucose 151 mg/dl; Hemoglobin A1C 6.9 % (4.5-5.6)
[2020-06-08] MEDS: FAMOTIDINE 20 MG in SYRINGE 3 ML IV SCH ×2 (08:32→20:34)
[2020-06-08] MEDS: clonazePAM 1 MG TAB PO SCH ×2 (08:35→20:28)
[2020-06-08] MEDS: SUCRALFATE 1 GM/10 ML UDC PO SCH ×4 (08:35→20:28)
[2020-06-08] MEDS: DOCUSATE SODIUM 100 MG CAP PO SCH ×2 (08:37→20:30)
[2020-06-08] MEDS: SENNA 8.6 MG TAB PO SCH ×2 (08:37→20:28)
[2020-06-08] MEDS: PANTOprazole 40 MG in SYRINGE 0 ML IV SCH ×2 (08:49→20:30)
[2020-06-08] MEDS: CHOLECALCIFEROL 1,000 UNITS 25 MCG TAB PO SCH (08:49)
[2020-06-08] MEDS: PROMETHAZINE HCL 12.5 MG in SODIUM CHLORIDE 0.9% 50 ML IV PRN ×2 (09:06→15:50)
[2020-06-08] MEDS ORDERED: PANTOprazole 40 MG in SYRINGE 0 ML IV SCH (11:00)
--- NOTE | 2020-06-08 12:23 | Gastrointestinal Consultation ---
Date of Consultation June 08, 2020 Assessment & Plan (1) Abdominal pain: (2) Nausea and vomiting: (3) GERD (gastroesophageal reflux disease): (4) Chronic constipation: Recommend Continuing Pantoprazole 40 mg IV BID Recommend continuing Carafate 1 g QID x 10 days As constipation can lead to worsening GERD symptoms, I would recommend a bowel regimen with Miralax 17 g in 8 oz glass of water twice daily. Recommend a single dose of Relistor 12 mg SQ now Continue supportive care Advance diet as tolerated. History of Present Illness Reason for Consultation: GERD, Nausea, Vomiting and Abdominal pain Attending Physician: Corey Haney, History of Present Illness Miriam Rubalcava is an 79 yo female well known to our service as she was just seen by my partner, Dr. Vieyra, on 05/31/2020. In Mid-April, she underwent an EGD with Soria pH monitor placement. She was noted to have mild gastritis on biopsies of the gastric antrum, but no evidence of H. pylori. Her Soria pH interpretation noted abnormal acid exposure while on acid-suppressive therapy. Her Omeprazole was switched to Pantoprazole 40 mg BID, and her Famotidine was increased to 20 mg by mouth twice daily. She states that she, "did not tolerate the new medication," and it was switched to Nexium 40 mg BID. She states that she has continued to have persistent symptoms despite an increase in her medications. She presented to the ER yesterday, with GERD, nausea with recurrent vomiting, and abdominal pain. She was noted to have a normal H/H in the ER, and a CT abd/pelvis showed no acute findings. She was subsequently admitted and placed on Pantoprazole 40 mg IV BID, as well as Carafate 1g QID. She states that she has not had any further vomiting. She denies any dysphagia or odynophagia, and denies hematemesis or melena. She does continue to complain of chronic abdominal pain, rated as 4/10 in intensity, which she cannot local ize. She denies any alleviating or exacerbating factors. She states that her pain radiates down her sides and into her back. She does have a pain pump for chronic back issues. Of note, she has not had a BM since Wednesday of this week. She denies any fevers, chills, hematochezia, jaundice, acolic stools, dark urine or pruritus. She has no further complaints. Allergies Allergy/AdvReac Type Severity Reaction Status Date / Time acetaminophen [From Percocet] Allergy Mild N/V Verified 05/31/20 10:48 adhesive tape Allergy Mild RED AND Verified 05/31/20 10:48 SORE butorphanol Allergy Mild N/V Verified 05/31/20 10:48 lubiprostone [From Amitiza] Allergy Mild Rash Verified 05/31/20 10:48 morphine Allergy Mild SWELLING Verified 05/31/20 10:48 oseltamivir [From Tamiflu] Allergy Mild N/V Verified 05/31/20 10:48 codeine Allergy Unknown SWELLING Verified 05/31/20 10:48 iodine Allergy Unknown Rash Verified 05/31/20 10:48 oxycodone Allergy Unknown AGITATION Verified 05/31/20 10:48 shellfish derived Allergy Unknown SWELLS Verified 05/31/20 10:48 Sulfa (Sulfonamide Allergy Unknown SWELLING Verified 05/31/20 10:48 Antibiotics) Home Medications Home Medications Medication Instructions Recorded Confirmed Type clonazepam 1 mg tablet 1 mg PO BID 10/11/19 06/07/20 History docusate sodium 100 mg capsule 100 mg PO BID 10/11/19 06/07/20 History levomilnacipran 80 mg capsule,24 80 mg PO QAM 10/11/19 06/07/20 History hr,extended release levothyroxine 88 mcg capsule 88 mcg PO QAM 10/11/19 06/07/20 History melatonin 10 mg tablet 10 mg PO HS 10/11/19 06/07/20 History potassium chloride 20 mEq 20 meq PO BID 10/11/19 06/07/20 History tablet,extended release spironolactone 25 mg tablet 25 mg PO BID 10/11/19 06/07/20 History trazodone 100 mg tablet 100 mg PO HS tab 10/11/19 06/07/20 History insulin glargine 100 unit/mL 20 unit SQ HS 12/04/19 06/07/20 History subcutaneous solution acetaminophen 500 mg capsule 1,000 mg PO Q6H PRN cap 01/26/20 06/07/20 History cholecalciferol (vitamin D3) 25 25 mcg PO DAILY 01/26/20 06/07/20 History mcg (1,000 unit) capsule furosemide 40 mg tablet 40 mg PO BID 01/26/20 06/07/20 History hydroxyzine HCl 25 mg tablet 50 mg PO TID PRN 01/26/20 06/07/20 History amitriptyline 25 mg PO HS 05/02/20 06/07/20 History sennosides [senna] 8.6 mg PO BID 05/02/20 06/07/20 History ropinirole 0.25 mg tablet 0.25 mg PO HS #30 tab 05/23/20 06/07/20 Rx famotidine 20 mg tablet 20 mg PO BID 30 Days #60 tab 05/31/20 06/07/20 Rx esomeprazole magnesium 40 mg 40 mg PO DAILY #30 cap 06/06/20 06/07/20 Rx capsule,delayed release cyanocobalamin (vitamin B-12) 1,000 mcg IM .Q3 MONTHS 06/07/20 06/07/20 History ondansetron HCl [Zofran] 4 mg PO Q8H PRN 06/07/20 06/07/20 History Patient History Medical History Anxiety disorder Arthritis Asthma Back problem Cervical postlaminectomy syndrome Chronic kidney disease COPD (chronic obstructive pulmonary disease) DDD (degenerative disc disease) Dependence on continuous supplemental oxygen 2 LITERS Diabetes mellitus DVT (deep venous thrombosis) LEGS HTN (hypertension) Hyperlipidemia Obesity Postlaminectomy syndrome of lumbosacral region Presence of intrathecal pump [employer]-- DILAUDID AND SOMETHING ELSE NOT SURE Sleep apnea NO MACHINE - JUST OXYGEN Stomach ulcer HX Surgical History H/O colonoscopy H/O neck surgery H/O: hysterectomy History of knee replacement, total LEFT AND RIGHT History of open reduction and internal fixation (ORIF) procedure RIGHT FOOT Hx laparoscopic cholecystectomy Hx of tonsillectomy Hx of total shoulder replacement RIGHT AND LEFT Previous back surgery Family History Father Cancer Diabetes Hypertension Stomach ulcer Social History Smoking Status: Never smoker Second Hand Exposure: No; Do You Dip or Chew Tobacco: No; Tobacco Cessation Education Requested by Patient: No Hx Alcohol Use: No Hx Substance Use: No Preferred Language: Mohawk Communication Ability: Effective Visual Impairment: No Limitations Hearing Ability: Use of Hearing Aid Research Project Coordinator Required: No Beliefs That Will Affect Care: None marital status: Current Living Situation: Spouse current occupational status: retired Other Information That Helps Us Care for You: No Feels Safe at Home: Yes Safety Concerns: Feels Safe At This Time Assistive Devices: Oxygen - Continuous and Walker Review of Systems Review of Systems: All systems reviewed & are unremarkable except as noted in HPI & below Physical Exam Constitutional: + ill appearing and + obese; no acute distress Eyes: + anicteric sclerae ENMT: external ear and nose normal, oropharynx normal Neck: trachea midline, no thyromegaly Respiratory: normal respiratory effort, lungs clear to auscultation Cardiovascular: RRR, no murmur, no edema Gastrointestinal (Abdomen): Inspection/Auscultation: abdomen normal to inspection and normal bowel sounds; abdomen not distended Percussion/Palpation: + abdomen tender and abdomen soft; no guarding, abdomen not rigid and no hepatosplenomegaly Pain pump palpable in LUQ Skin: no rashes, warm and dry Psychiatric: A+Ox3, euthymic affect Results & Data ([facility]) Vital Signs (Past 12 Hours) Vital Signs Temp Pulse Resp BP BP Pulse Ox 06/08/20 07:36 37.0 C 74 18 144/82 H 97 06/08/20 03:21 36.8 C 81 21 127/74 97 PG Care Time/CCT Total # of Minutes Spent Total Time Spent with Patient: Total time spent is greater than 50% in coordination of care (as documented) at patient's floor/unit and/or counseling patient: Coding Level of Care Code 56412 Initial Inpt Care Lvl 3 Diagnoses Abdominal pain R10.9 Nausea and vomiting R11.2 GERD (gastroesophageal reflux disease) K21.9 Chronic constipation K59.09
[2020-06-08] MEDS ORDERED: METHYLNALTREXONE BROMIDE 12 MG/0.6 ML VIAL SQ ONE (12:45)
[2020-06-08] MEDS: POLYETHYLENE (MIRALAX) 17 GM PACK PO SCH ×2 (13:39→20:30)
--- NOTE | 2020-06-08 16:22 | Hospitalist Progress Note ---
Date of Service June 08, 2020 Assessment & Plan (1) Nausea and vomiting: suspect GERD and constipation -manage both as below -follow clinically/serial exams (2) GERD (gastroesophageal reflux disease): carafate, protonix, pepcid, follow -?hopefully improvement with bowel regimen (3) Chronic constipation: miralax, relistor plan as per GI. ongoing close f/u and escalate if needed follow bowels, serial exams (4) Chronic back pain: "failed back syndrome" but where her pain is now and how she examines, i suspect a heavy component of biomechanical pain from Lspine paraspinals. once her belly is feeling better i would also like to examine pelvic stabilizing muscles and i harbor suspicions that these muscles contribute as well -extensive discussions on this, suspect that while it might take a while for effect, she would be fairly likely to benefit from trial of OMT directed at soft tissue driving the biomechanical part of her pain (5) IBS (irritable bowel syndrome): Continue Bentyl bowel regimen as above (6) Diabetes mellitus: continue currrent care and continue to follow sugars (7) Anxiety disorder: home meds reassurance, explanations, supportive care all seems to help (8) HTN (hypertension): follow on current meds, BP control reasonable. (9) Restless legs syndrome (RLS): (10) Thyroid disease: TSH added to ER labs. Continue levothyroxine 88 mcg PO daily (11) Presence of intrathecal pump: (12) Sleep apnea: Not on CPAP. Monitor for nocturnal hypoxia. (13) COPD (chronic obstructive pulmonary disease): No acute exacerbation. On no maintenance inhalers. (14) Constipation: (15) Cervical postlaminectomy syndrome: (16) DVT prophylaxis: lovenox Admission and Anticipated Discharge Date Admission Date: June 07, 2020 Subjective had a BM just before i saw her - liquid. notes belly pain worsening for much of the last year - just gradually worsened to where it got to be too much. lower abdominal - sharp and stabbing at times - always there, sometimes less than others, sometimes worsens. chronically constipated. also ongoing epigastric pain/nausea - dry heaves starting in the last week - prior to that not really an issue as much - but was still having some pain - EGD a few weeks ago "he said i had the worst GERD he had ever seen and he talked to his colleagues and it was the worst they had ever seen as well" chronic back pain - many neck surgeries, many low back surgeries. right now pain mostly in low back bilaterally. normally doesn't really go down legs - lately has been feeling it on front of legs but has also been at the same time as the abdominal pain worsening. has appt [facility] in 2wks. both wants to be able to make it to that and is equally reticent to go because she really doesn't want another surgery. Review of Systems Review of Systems: All systems reviewed & are unremarkable except as noted in HPI & below Physical Exam Physical Exam: gen aaox3 pleasant nad heent nc at mmm breathing unlabored no accessory muscles good effort abd (+) epigastric tenderness no guarding no rebound, b/l lower abdominal tenderness no guarding no rebound msk/ost - b/l l umbar paraspinals high tone/tender/decreased ROM Results & Data Results & Data ([facility]) Vital Signs (Past 12 Hours) Vital Signs Temp Pulse Resp BP Pulse Ox 06/08/20 07:36 98.6 F 74 18 144/82 H 97 PG Care Time/CCT Total # of Minutes Spent Total Time Spent with Patient: Total time spent is greater than 50% in coordination of care (as documented) at patient's floor/unit and/or counseling patient: Coding Level of Care Code 55124 Subseq Hosp Care Lvl 3 Diagnoses Nausea and vomiting R11.2 GERD (gastroesophageal reflux disease) K21.9 Chronic constipation K59.09 Chronic back pain M54.9; G89.29 IBS (irritable bowel syndrome) K58.9 Diabetes mellitus E11.9 Anxiety disorder F41.9 HTN (hypertension) I10 Restless legs syndrome (RLS) G25.81 Thyroid disease E07.9 Presence of intrathecal pump Z97.8 Sleep apnea G47.30 COPD (chronic obstructive pulmonary disease) J44.9 Constipation K59.00 Cervical postlaminectomy syndrome M96.1 DVT prophylaxis Z29.9
--- NOTE | 2020-06-08 16:52 | Billing Data ---
Date of Service June 08, 2020 Coding Level of Care Code 69258 Subseq Obs Care Lvl 3 Comment disregard [id number] - entered in error
[2020-06-08] MEDS: ACETAMINOPHEN 325 MG TAB PO PRN (19:23)
[2020-06-08] MEDS: LORazepam 0.5 MG/1 ML VIAL IV PRN (19:23)
[2020-06-08] MEDS: MELATONIN 3 MG TAB PO SCH (20:29)
[2020-06-08] MEDS: rOPINIRole HCL 0.25 MG TABLET PO SCH (20:29)
[2020-06-08] MEDS: AMITRIPTYLINE HCL 25 MG TAB PO SCH (20:29)
[2020-06-08] MEDS: traZODone HCL 100 MG TAB PO SCH (20:30)
[2020-06-09] MEDS: ONDANSETRON INJ 2 MG/ML 2 ML VIAL IV PRN ×2 (02:05→11:08)
[2020-06-09] MEDS: LEVOTHYROXINE SODIUM 88 MCG TABLET PO SCH (05:31)
[2020-06-09 07:39] LABS: Basophils # (auto) 0.03 K/uL (0-0.2); Basophils % (auto) 0.3 %; Eosinophils # (auto) 0.31 K/uL (0-0.5); Eosinophils % (auto) 3.4 %; Hematocrit (blood only) 37.5 % (37-47); Hemoglobin 11.7 g/dL (12.0-16.0); Immature Granulocytes # (auto) 0.02 K/uL (0.00-0.02); Immature Granulocytes % (auto) 0.2 %; Lymphocytes # (auto) 3.17 K/uL (1.2-3.4); Lymphocytes % (auto) 34.4 %; Mean Corpuscular Hemoglobin 28.8 pg (25-34); Mean Corpuscular Hgb Conc 31.2 g/dL (32-36); Mean Corpuscular Volume 92.4 fL (80-100); Mean Platelet Volume 9.2 fL (7.4-10.4); Monocytes # (auto) 0.75 K/uL (0.11-0.59); Monocytes % (auto) 8.1 %; Neutrophils # (auto) 4.93 K/uL (1.4-6.5); Neutrophils % (auto) 53.6 %; Platelet Count 280 K/uL (130-400); RDW Coefficient of Variation 13.1 % (11.5-14.5); RDW Standard Deviation 44.1 fL (36.4-46.3); Red Blood Count 4.06 M/uL (4.2-5.4); White Blood Count 9.21 K/uL (4.8-10.8)
[2020-06-09] MEDS: DOCUSATE SODIUM 100 MG CAP PO SCH ×2 (08:04→20:22)
[2020-06-09] MEDS: SENNA 8.6 MG TAB PO SCH ×2 (08:04→20:23)
[2020-06-09] MEDS: SUCRALFATE 1 GM/10 ML UDC PO SCH ×4 (08:04→20:12)
[2020-06-09] MEDS: CHOLECALCIFEROL 1,000 UNITS 25 MCG TAB PO SCH (08:04)
[2020-06-09] MEDS: ENOXAPARIN INJ 40 MG/0.4 ML SYR SQ SCH (08:04)
[2020-06-09] MEDS: POLYETHYLENE (MIRALAX) 17 GM PACK PO SCH ×2 (08:04→20:25)
[2020-06-09] MEDS: FAMOTIDINE 20 MG in SYRINGE 3 ML IV SCH ×2 (08:05→20:27)
[2020-06-09 08:09] LABS: BUN Creatinine Ratio 13.5 (10-20); Calcium 9.5 mg/dl (8.5-10.1); Creatinine Clr Calc Pharmacy 35.3 ml/min; Est GFR (African American) 41.4; Est GFR (Non-African American) 35.7; Potassium 4.2 mmol/L (3.5-5.1)
[2020-06-09] MEDS: clonazePAM 1 MG TAB PO SCH ×2 (08:13→20:24)
[2020-06-09] MEDS: PANTOprazole 40 MG in SYRINGE 0 ML IV SCH ×2 (08:13→20:27)
[2020-06-09] MEDS: INSULIN ASPART 100 UNITS/ML 3 ML PEN SC SCH ×4 (08:51→20:51)
--- NOTE | 2020-06-09 08:58 | Gastroenterology Progress Note ---
Date of Service June 09, 2020 Assessment & Plan (1) Constipation: (2) Abdominal pain: (3) Nausea and vomiting: (4) GERD (gastroesophageal reflux disease): Continue Pantoprazole 40 mg IV BID and Famotidine 20 mg IV BID Continue bowel regimen with Miralax 17g PO BID in 8 oz glass of water Continue supportive care Consider pain management consult Admission and Anticipated Discharge Date Admission Date: June 07, 2020 Subjective Doing slightly better today. Did have a BM yesterday. Tolerating PO intake. States that she had dry heaves and worsening abdominal pain through the night. Asked me for something for her nerves, and a stronger pain medication. I informed her that she would need to talk to her hospitalist for this. She states she has seen pain management in the past, but cannot remember the Doctor's name. She denies any fevers, chills, nausea, vomiting, hematemesis, melena or hematochezia at this time. Review of Systems Constitutional: no fever and no chills Respiratory: no cough Cardiovascular: no chest pain Gastrointestinal: + constipation; no heartburn, no nausea, no vomiting and no hematemesis Physical Exam Constitutional: + ill appearing and + obese Respiratory: normal respiratory effort; no respiratory distress and no labored breathing Cardiovascular: Rate/Rhythm: regular rate and regular rhythm Gastrointestinal (Abdomen): Inspection/Auscultation: abdomen normal to inspection and normal bowel sounds; abdomen not distended Percussion/Palpation: + abdomen tender and abdomen soft; no guarding and abdomen not rigid Psychiatric: A+Ox3, euthymic affect Results & Data Results & Data ([facility]) Vital Signs (Past 12 Hours) Vital Signs Temp Pulse Resp BP BP Pulse Ox 06/09/20 07:39 36.6 C 66 18 123/72 99 06/08/20 23:24 36.5 C 61 18 112/69 97 PG Care Time/CCT Total # of Minutes Spent Total Time Spent with Patient: Total time spent is greater than 50% in coordination of care (as documented) at patient's floor/unit and/or counseling patient: Coding Level of Care Code 84264 Subseq Hosp Care Lvl 3 Diagnoses Constipation K59.00 Abdominal pain R10.9 Nausea and vomiting R11.2 GERD (gastroesophageal reflux disease) K21.9
[2020-06-09] MEDS: DICLOFENAC SOD 1% GEL 100 GM TUBE EXT SCH ×3 (13:13→20:52)
[2020-06-09] MEDS ORDERED: POLYETHYLENE (MIRALAX) 17 GM PACK PO STA (14:34)
--- NOTE | 2020-06-09 14:57 | Hospitalist Progress Note ---
Date of Service June 09, 2020 Assessment & Plan (1) Constipation: Nausea and vomiting: - suspect GERD and constipation - manage both as below - follow clinically/serial exams Chronic constipation: - despite BM x1 yesterday, still constipated with slightly worse abdominal pain and no change on abdominal exam - Miralax 68 g x1 administered on 06/09 at ~1530 - continue miralax BID, plan as per GI recs - PRN Tylenol for pain and PRN Dilaudid 0.25 mg IV q6h for breakthrough pain - cautious use of narcotics in setting of constipation - ongoing close f/u and escalate if needed - follow bowels, serial exams GERD - more severe symptoms today likely due to worsening constipation - scheduled Zofran 6 mg IV Q6H x24 hours for acute management of sx - monitor for symptomatic improvement along with treatment of constipation - continue carafate, protonix, pepcid Chronic back pain: - likely large component of biomechanical pain from Lspine paraspinal muscle spasms - counseled on utility of trial of OMT directed at soft tissue driving the biomechanical part of her pain - as outpatient, once current symptoms are more controlled IBS - Continue Bentyl - bowel regimen as above Diabetes mellitus: - continue currrent care and continue to follow sugars Anxiety disorder: - home meds - reassurance, explanations, supportive care all seems to help HTN: - follow on current meds, BP control reasonable. (9) Restless legs syndrome (RLS): (10) Thyroid disease: - TSH added to ER labs. Continue levothyroxine 88 mcg PO daily (11) Presence of intrathecal pump: (12) Sleep apnea: - Not on CPAP. Monitor for nocturnal hypoxia. (13) COPD (chronic obstructive pulmonary disease): - No acute exacerbation. On no maintenance inhalers. (14) Constipation: (15) Cervical postlaminectomy syndrome: FEN/GI: Full Liquid, DM2 DVT Prophylaxis: SQ Lovenox 40 mg Code Status: Conditional (Yes to ventilation, No to defibrillation/chest compressions) Disposition: med/surg (2) Abdominal pain: (3) Nausea and vomiting: (4) GERD (gastroesophageal reflux disease): Admission and Anticipated Discharge Date Admission Date: June 07, 2020 Supervising Physician Co-Signing Physician Notes I personally examined the patient and verified all finley points of history and exam, discussed case, and agree with decision making with Dr Sánchez. feeling about the same. did walk around some. no further BMs. as we discuss escalated bowel regimen, nursing enters with perfect timing bearing 4 doses of miralax. vitals noted nad heent nc at mmm breathing unlabored no accessory muscles good effort abd soft mod distention like yesterday maybe sl worse mild lower abdominal tenderness no guarding no rebound skin no pallor or icterus abdominal pain - GERD and constipation. PPI/H2/carafate and zofran for now for UGI sx. hopefully moving bowels will help improve UGI sx as well. increase miralax for LGI sx. discussed pain control. chronic low back pain - as noted yesterday suspect large biomechanical component and likely would benefit from trial of OMT - after discharge otherwise as above Subjective Patient received Ativan x1 yesterday for anxiety, which led to improvement. Also received Zofran x1 early this morning for nausea/regurgitation worsening with ambulation (went to the bathroom). Patient reports worsening GERD symptoms every time she ambulates. Also reports slightly worsening lower abdominal pain despite passing a non-formed BM x1 yesterday. Reports that abdominal pain is significant and not controlled with PRN Tylenol - would like something else for pain control and mentioned that Dilaudid has worked well for her in the past without side effects. Review of Systems Constitutional: no fever and no chills Respiratory: no cough and no dyspnea Cardiovascular: no chest pain and no palpitations Gastrointestinal: + abdominal pain (suprapubic/lower quadrants), + heartburn, + nausea and + constipation; no vomiting and no hematemesis Physical Exam Constitutional: fatigued, obese, vitals as above Respiratory: normal respiratory effort, lungs clear to auscultation Cardiovascular: RRR, no murmur, no edema Gastrointestinal (Abdomen): Inspection/Auscultation: abdomen normal to inspection and normal bowel sounds; abdomen not distended Percussion/Palpation: + abdomen tender (moderate bilateral lower quadrant/suprapubic tenderness); no guarding, abdomen not rigid and no ascites Skin: no rashes, warm and dry Psychiatric: A+Ox3, euthymic affect Results & Data Results & Data ([facility]) Vital Signs (Past 12 Hours) Vital Signs Temp Pulse Resp BP Pulse Ox 06/09/20 07:39 36.6 C 66 18 123/72 99 Resident Activity Tracking Resident Involvement: Resident Care Provided Care Provided: Adult Hospital Medicine
[2020-06-09] MEDS: ondansetron HCL 6 MG in DEXTROSE 5% 50 ML IV SCH ×2 (15:46→22:09)
--- NOTE | 2020-06-09 16:48 | Billing Data ---
Date of Service June 09, 2020 Coding Level of Care Code 16926 Subseq Hosp Care Lvl 3
--- NOTE | 2020-06-09 16:49 | Billing Data ---
Date of Service June 09, 2020 Coding Level of Care Code 56224 Subseq Hosp Care Lvl 3
[2020-06-09] MEDS: HYDROmorphone INJ 0.5 MG/0.5 ML SYR IV PRN (20:08)
[2020-06-09] MEDS: traZODone HCL 100 MG TAB PO SCH (20:22)
[2020-06-09] MEDS: rOPINIRole HCL 0.25 MG TABLET PO SCH (20:23)
[2020-06-09] MEDS: AMITRIPTYLINE HCL 25 MG TAB PO SCH (20:24)
[2020-06-09] MEDS: MELATONIN 3 MG TAB PO SCH (20:25)
[2020-06-10] MEDS: HYDROmorphone INJ 0.5 MG/0.5 ML SYR IV PRN ×3 (04:21→17:02)
[2020-06-10] MEDS: ondansetron HCL 6 MG in DEXTROSE 5% 50 ML IV SCH ×2 (04:38→08:40)
[2020-06-10] MEDS: ACETAMINOPHEN 325 MG TAB PO PRN (05:06)
[2020-06-10] MEDS: LORazepam 0.5 MG/1 ML VIAL IV PRN (05:15)
[2020-06-10] MEDS: LEVOTHYROXINE SODIUM 88 MCG TABLET PO SCH (05:16)
[2020-06-10 06:27] LABS: Basophils # (auto) 0.04 K/uL (0-0.2); Basophils % (auto) 0.6 %; Eosinophils % (auto) 4.3 %; Hematocrit (blood only) 35.2 % (37-47); Hemoglobin 10.9 g/dL (12.0-16.0); Immature Granulocytes # (auto) 0.02 K/uL (0.00-0.02); Immature Granulocytes % (auto) 0.3 %; Lymphocytes # (auto) 2.59 K/uL (1.2-3.4); Lymphocytes % (auto) 36.8 %; Mean Corpuscular Hemoglobin 28.4 pg (25-34); Mean Corpuscular Volume 91.7 fL (80-100); Mean Platelet Volume 9.4 fL (7.4-10.4); Monocytes # (auto) 0.67 K/uL (0.11-0.59); Monocytes % (auto) 9.5 %; Neutrophils # (auto) 3.41 K/uL (1.4-6.5); Neutrophils % (auto) 48.5 %; Platelet Count 287 K/uL (130-400); RDW Coefficient of Variation 12.9 % (11.5-14.5); RDW Standard Deviation 43.4 fL (36.4-46.3); Red Blood Count 3.84 M/uL (4.2-5.4); White Blood Count 7.03 K/uL (4.8-10.8)
[2020-06-10 07:00] LABS: BUN Creatinine Ratio 9.3 (10-20); Calcium 8.9 mg/dl (8.5-10.1); Creatinine Clr Calc Pharmacy 39.1 ml/min; Est GFR (African American) 46.2; Est GFR (Non-African American) 39.8
--- NOTE | 2020-06-10 07:17 | Hospitalist Progress Note ---
Date of Service June 10, 2020 Assessment & Plan (1) Constipation: 79 y/o F w/ hx of DM, GERD, and COPD on 2L home O2 who presents w/ N/V/abd pain thought 2/2 GERD and chronic constipation. Nausea, vomiting, abdominal pain, likely 2/2 GERD and chronic constipation - no recent emesis. +nausea and abd pain - PRN Tylenol for pain and PRN Dilaudid 0.25 mg IV q6h for severe pain - miralax 4 packets yesterday, but no BM overnight. plan: saline enema. continue miralax BID. Outpatient GI f/u - regimen of carafate, protonix, pepcid. 05/07/20 EGD showed gastritis, but no mention of ulcers. consider d/c of carafate. - RLQ pain, hard to differentiate acute vs. chronic pain, but per hx, sounds chronic, 2 wk+. Less likely uti given lack of leukocytosis, fever, dysuria. will not order urine culture at this time. Admission CT abd did not suggest pyelo. Chronic back pain: - likely large component of biomechanical pain from Lspine paraspinal muscle spasms - counseled on utility of trial of outpatient OMT directed at soft tissue driving the biomechanical part of her pain - intrathecal pump that dispenses dilaudid and bupivacaine. pain management cons ulted today. CT scan of intrathecal pump for suspicion of pump catheter fracture. result: did not show fracture. continue pain management f/u outpt. Also, pain management does not think intrathecal pump contributing to constipation. LLE swelling/pain - L venous doppler today was negative for DVT COPD (chronic obstructive pulmonary disease): - on 2L home O2. Will try to titrate down from current 3L. - no acute exacerbation. On no maintenance inhalers. IBS - Continue Bentyl - bowel regimen as above Diabetes mellitus: - continue currrent care and continue to follow sugars MATTI on CKD - renal function improving. Anxiety disorder: - home meds HTN: - follow on current meds, BP control reasonable. Restless legs syndrome (RLS): ropirinole .25 qhs Thyroid disease: Continue levothyroxine 88 mcg PO daily Sleep apnea: - Not on CPAP. Monitor for nocturnal hypoxia. FEN/GI: Full Liquid, DM2. tolerating pudding consistency diet. continue adv ancing diet DVT Prophylaxis: SQ Lovenox 40 mg Code Status: Conditional (Yes to ventilation, No to defibrillation/chest compressions) Disposition: med/surg. Goal is dispo to home (+- home health) 06/11/20. PT/OT recs reviewed. goal is home. patient's had been taking care of her. (2) Abdominal pain: (3) Nausea and vomiting: (4) GERD (gastroesophageal reflux disease): (5) DVT prophylaxis: (6) Chronic back pain: (7) Restless legs syndrome (RLS): (8) Spinal stenosis of thoracolumbar region: (9) IBS (irritable bowel syndrome): (10) Dependence on continuous supplemental oxygen: (11) COPD (chronic obstructive pulmonary disease): (12) Sleep apnea: (13) HTN (hypertension): (14) DVT (deep venous thrombosis): (15) Diabetes mellitus: (16) Chronic kidney disease: (17) Anxiety disorder: Admission and Anticipated Discharge Date Admission Date: June 09, 2020 Supervising Physician Co-Signing Physician Notes Resident Physician Supervision Note: I independently interviewed and examined the patient and verified the finley history and physical, reviewed labs and image studies, discussed the case with the resident Dr. Esparza and agree with the findings and care plan. Subjective Her main complaint is her back pain (lower back) 9/10 intensity, constant .Pain feels worse than yesterday. She also feels bloated. She did get up and walk to bathroom. Breathing is unchanged/not worsened from yesterday, worsened by pain. No BM despite 4 packets of Miralax yesterday. Pain pump replaced 3-4 yrs ago. In and out of various pain management practices, established [facility] this summmer. +nausea last night. Occasional abd pain epigastric and RLQ soreness, not new. +constip . no current cp. + sob and headache (not new). hx appendectomy. Hx blood clot R leg in the 1970s. Not on hormone supplements. No hx cancers. Wasn't bedbound before hosp. No recent airtravel. No blood disorders. Receiving SQ lovenox for DVT prophylaxis here. Not on home blood thinner Per patient, on 2 L home O2 for 10+ years. Tolerating pudding PO. Has some chronic anxiety (nerves) because of chronic medical conditions. Review of Systems Review of Systems: Constitutional: Denies fever, chills Cardiovascular: Denies Chest pain Respiratory: +sob, see HPI Gastrointestinal: Denies vomiting, diarrhea. + abd pain, see HPI Genitourinary: Denies urinary symptoms including dysuria Musculoskeletal: Denies weakness, Neurological: Denies focal weakness Physical Exam Physical Exam: General: Grossly A&O. NAD. Cooperative. HEENT: Atraumatic, normocephalic. EOMI Pulm: CTAB. -wheezes, -rales, -rhonchi. No respiratory distress. Cardiac: RRR, -mrg. Radial pulses intact and symmetrical. Abd: RLQ TTP to deep palpation. No rebound or guarding. No R cva tenderness. Intrathecal pump palpable in LLQ. Musculoskeletal. L foot swollen above ankle. diffusely tender, including calf. Results & Data Results & Data ([facility]) Vital Signs (Past 12 Hours) Vital Signs Temp Pulse Resp BP Pulse Ox 06/10/20 00:14 36.7 C 75 18 105/61 98 Resident Activity Tracking Resident Involvement: Resident Care Provided Care Provided: Adult Hospital Medicine
[2020-06-10] MEDS: DOCUSATE SODIUM 100 MG CAP PO SCH ×2 (08:39→20:51)
[2020-06-10] MEDS: CHOLECALCIFEROL 1,000 UNITS 25 MCG TAB PO SCH (08:39)
[2020-06-10] MEDS: SUCRALFATE 1 GM/10 ML UDC PO SCH ×4 (08:39→20:49)
[2020-06-10] MEDS: SENNA 8.6 MG TAB PO SCH ×2 (08:39→20:50)
[2020-06-10] MEDS: ENOXAPARIN INJ 40 MG/0.4 ML SYR SQ SCH (08:40)
[2020-06-10] MEDS: FAMOTIDINE 20 MG in SYRINGE 3 ML IV SCH ×2 (08:40→20:55)
[2020-06-10] MEDS: POLYETHYLENE (MIRALAX) 17 GM PACK PO SCH ×2 (08:40→20:51)
[2020-06-10] MEDS: PANTOprazole 40 MG in SYRINGE 0 ML IV SCH ×2 (08:40→20:50)
[2020-06-10] MEDS: DICLOFENAC SOD 1% GEL 100 GM TUBE EXT SCH ×4 (08:41→20:50)
[2020-06-10] MEDS: INSULIN ASPART 100 UNITS/ML 3 ML PEN SC SCH ×4 (08:42→20:51)
[2020-06-10] MEDS: clonazePAM 1 MG TAB PO SCH ×2 (08:45→20:55)
--- NOTE | 2020-06-10 08:48 | Pain Management Consultation ---
Date of Consultation June 10, 2020 Assessment & Plan (1) Postlaminectomy syndrome of lumbosacral region: * No adjustment of intrathecal pump at this time. Patient may continue with IV hydromorphone 0.25 mg every 6 hours as needed for breakthrough pain as written Present on Admission?: Yes (2) Cervical postlaminectomy syndrome: Present on Admission?: Yes (3) Presence of intrathecal pump: * Will request CT scan of the thoracic spine without contrast with 3D rec onstruction and attempt to further evaluate her intrathecal catheter to determine viability/patency of the catheter with further recommendations pending results * No adjustment to intrathecal pump at this time which does contain hydromorphone 1.6816 mg/day and bupivacaine 0.5045 mg/day--refer to pump printout in EMR for further details dated 03/25/2020 Present on Admission?: Yes (4) Abdominal pain: * GI following Present on Admission?: Yes (5) Constipation: * Continue to be followed by GI. Do not suspect relationship with intrat hecal opiate therapy. Patient had no response to Relistor therapy earlier in this admission given on 06/08/2020 at 1339. Present on Admission?: Yes History of Present Illness Reason for Consultation: Chronic intractable low back pain Requesting Physician: Genaro Ortez MD Attending Physician: Eden Clement MD History of Present Illness Mrs. Rubalcava is an 79-year-old morbidly obese white female who is known to the pain service due to chronic intractable low back pain with history of intrathecal pump and catheter delivery system. Patient was admitted due to nausea, vomiting and abdominal pain. Patient has history of chronic co nstipation and has been followed by GI in the outpatient setting for evaluation of her chronic complaints of nausea, vomiting and abdominal pain. Patient indicates her chronic intractable low back pain is without change in location, characteristic or severity. Her pain is predominantly axial at 80% with a 20% component in the lower extremities bilaterally predominantly at bedtime and nondermatomal patterns. Patient rates her pain at a 5-8/10. There has been concern from pain service regarding the viability of her intrathecal catheter but she was unable to pursue catheter dye study due to history of shellfish/iodine allergy. Further diagnostic evaluation has been planned for early June at the time of her next intrathecal pump refill. Recent increases in intrathecal dose have failed provide any improvement in pain control. She denies any recent falls or injuries. She denies bowel or bladder incontinence. She denies saddle anesthesias. She denies pain over her intrathecal pump site in the left lower quadrant abdomen. The patient reports some moderate benefit in pain control upon this admission with IV hydromorphone without notable side effects. Patient reports no nausea or vomiting over the past 24 hours. Patient has no further constitutional complaints. Plan of care discussed with Dr. Perez. Pain Assessment Full Body Front + Back: 1. Chronic intractable low back pain 2. Nondermatomal lower extremity pain-chronic 3. Nondermatomal lower extremity pain-chronic Pain scale - at its best (0-10): 5 Pain scale - at its worst (0-10): 8 Allergies Allergy/AdvReac Type Severity Reaction Status Date / Time acetaminophen [From Percocet] Allergy Mild N/V Verified 05/31/20 10:48 adhesive tape Allergy Mild RED AND Verified 05/31/20 10:48 SORE butorphanol Allergy Mild N/V Verified 05/31/20 10:48 lubiprostone [From Amitiza] Allergy Mild Rash Verified 05/31/20 10:48 morphine Allergy Mild SWELLING Verified 05/31/20 10:48 oseltamivir [From Tamiflu] Allergy Mild N/V Verified 05/31/20 10:48 codeine Allergy Unknown SWELLING Verified 05/31/20 10:48 iodine Allergy Unknown Rash Verified 05/31/20 10:48 oxycodone Allergy Unknown AGITATION Verified 05/31/20 10:48 shellfish derived Allergy Unknown SWELLS Verified 05/31/20 10:48 Sulfa (Sulfonamide Allergy Unknown SWELLING Verified 05/31/20 10:48 Antibiotics) Home Medications Home Medications Medication Instructions Recorded Confirmed Type clonazepam 1 mg tablet 1 mg PO BID 10/11/19 06/07/20 History docusate sodium 100 mg capsule 100 mg PO BID 10/11/19 06/07/20 History levomilnacipran 80 mg capsule,24 80 mg PO QAM 10/11/19 06/07/20 History hr,extended release levothyroxine 88 mcg capsule 88 mcg PO QAM 10/11/19 06/07/20 History melatonin 10 mg tablet 10 mg PO HS 10/11/19 06/07/20 History potassium chloride 20 mEq 20 meq PO BID 10/11/19 06/07/20 History tablet,extended release spironolactone 25 mg tablet 25 mg PO BID 10/11/19 06/07/20 History trazodone 100 mg tablet 100 mg PO HS tab 10/11/19 06/07/20 History insulin glargine 100 unit/mL 20 unit SQ HS 12/04/19 06/07/20 History subcutaneous solution acetaminophen 500 mg capsule 1,000 mg PO Q6H PRN cap 01/26/20 06/07/20 History cholecalciferol (vitamin D3) 25 25 mcg PO DAILY 01/26/20 06/07/20 History mcg (1,000 unit) capsule furosemide 40 mg tablet 40 mg PO BID 01/26/20 06/07/20 History hydroxyzine HCl 25 mg tablet 50 mg PO TID PRN 01/26/20 06/07/20 History amitriptyline 25 mg PO HS 05/02/20 06/07/20 History sennosides [senna] 8.6 mg PO BID 05/02/20 06/07/20 History ropinirole 0.25 mg tablet 0.25 mg PO HS #30 tab 05/23/20 06/07/20 Rx famotidine 20 mg tablet 20 mg PO BID 30 Days #60 tab 05/31/20 06/07/20 Rx esomeprazole magnesium 40 mg 40 mg PO DAILY #30 cap 06/06/20 06/07/20 Rx capsule,delayed release cyanocobalamin (vitamin B-12) 1,000 mcg IM .Q3 MONTHS 06/07/20 06/07/20 History ondansetron HCl [Zofran] 4 mg PO Q8H PRN 06/07/20 06/07/20 History Pain History Pain Intensity Pain scale - at its best (0-10): 5 Pain scale - at its worst (0-10): 8 Patient History Medical History Anxiety disorder Arthritis Asthma Back problem Cervical postlaminectomy syndrome Chronic kidney disease COPD (chronic obstructive pulmonary disease) DDD (degenerative disc disease) Dependence on continuous supplemental oxygen 2 LITERS Diabetes mellitus DVT (deep venous thrombosis) LEGS HTN (hypertension) Hyperlipidemia Obesity Postlaminectomy syndrome of lumbosacral region Presence of intrathecal pump [facility]-- DILAUDID AND SOMETHING ELSE NOT SURE Sleep apnea NO MACHINE - JUST OXYGEN Stomach ulcer HX Surgical History H/O colonoscopy H/O neck surgery H/O: hysterectomy History of knee replacement, total LEFT AND RIGHT History of open reduction and internal fixation (ORIF) procedure RIGHT FOOT Hx laparoscopic cholecystectomy Hx of tonsillectomy Hx of total shoulder replacement RIGHT AND LEFT Previous back surgery Family History Father Cancer Diabetes Hypertension Stomach ulcer Social History Smoking Status: Never smoker Second Hand Exposure: No; Do You Dip or Chew Tobacco: No; Tobacco Cessation Education Requested by Patient: No Hx Alcohol Use: No Hx Substance Use: No Preferred Language: Turkish Communication Ability: Effective Visual Impairment: No Limitations Hearing Ability: Use of Hearing Aid Substation Manager Required: No Beliefs That Will Affect Care: None marital status: Current Living Situation: Spouse current occupational status: retired Other Information That Helps Us Care for You: No Feels Safe at Home: Yes Safety Concerns: Feels Safe At This Time Assistive Devices: Oxygen - Continuous and Walker Physical Exam Physical Exam: General: Patient sleeping upon entering the room. Patient was easily arousable. She appears to be in no acute distress. Speech and thought process appropriate. Mood and affect appropriate. Cognition intact. Head: Normocephalic and atraumatic. Neck: Supple without adenopathy and full range of motion. Chest: Nontender to palpation of the costosternal junction. Abdomen: Soft without rebound or guarding. No organomegaly. Bowel sounds active. Pump located in left lower quadrant without evidence of edema, erythema or skin breakdown. Pump is nontender to palpation. Back/spine: Complete loss of lumbar lordosis. Well-healed midline incision over the mid and lower lumbar spine. No evidence of edema, erythema or skin breakdown. Patient nontender over the midline. Patient tender in the left lumbar paravertebral musculature to palpation with spasm. Well-healed midline incision at the thoracolumbar junction at site of catheter insertion without ev idence of edema, erythema or skin breakdown. Lower extremities: Generalized tenderness to palpation in nondermatomal pattern involving the entire bilateral lower extremities. Sensation is intact distally to sharp and dull. Strength testing 5/5 with dorsiflexion, plantarflexion and EHL testing. Neurologic: Cranial nerves grossly intact. Ambulatory function not witnessed.
--- NOTE | 2020-06-10 11:50 | CT Scan Report ---
CT thoracic spine wo con CT DOSE: 1251.83 mGy.cm CLINICAL HISTORY: Intractable back pain, intrathecal pump, rule out catheter fracture TECHNIQUE: Helical images were acquired in the transverse plane. Sagittal and coronal reformatted john ges were reviewed. A dose lowering technique was utilized adhering to the principles of ALARA. COMPARISON STUDY: MRI the thoracic spine performed 01/22/2020 FINDINGS: There is mild dilatation of the upper thoracic esophagus. There is equivocal wall thickening. There are advanced degenerative changes present within the thoracic spine. There is an old severe T12 compression fracture status post vertebroplasty. Compression deformities o f the T11 T5 T4 and T3 and T2 vertebra are also evident. There is mild retropulsion of the T12 fracture with T12-L1 posterior spurring. There is a disc osteophyte complex at the T10-11 level. The patient has intrathecal catheter. The tip terminates at the T5-6 level. No intraspinal catheter f ractures are visualized. On the freelance displayer radiograph, there is an equivocal discontinuity of the catheter projected over the left upper quadrant. It is quite possible this is artifactual. Correlation with a conventional x-ray exami nation is recommended in follow-up. 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 IMPRESSION: 1. Multiple old vertebral body compression fractures. Evidence of a prior T12 vertebroplasty 2. Intrathecal catheter terminating at the T5-6 level. No intraspinal catheter fractures are visualiz ed 3. On the localizer image, there is an equivocal discontinuity of the catheter projected over the lef t upper quadrant. This could be artifactual. Correlation with a conventional x-ray examination is rec ommended in follow-up ACT 112: Negative or not required by law. Electronically signed by: Minor Hayes M.D. 06/10/2020 11:49 AM
--- NOTE | 2020-06-10 15:10 | Ultrasound Report ---
US venous doppler LE LT CLINICAL HISTORY: Left lower extremity swelling and tenderness COMPARISON STUDY: No previous studies for comparison. FINDINGS: Grayscale, color-flow, Doppler spectral waveform analysis was performed. No thrombus was visualized in the common femoral, superficial femoral, or popliteal veins. The calf v eins were poorly visualized. IMPRESSION: 1. No evidence of left lower extremity DVT. 2. Nondiagnostic evaluation of the calf veins. ACT 112: Negative or not required by law. Electronically signed by: Minor Hayes M.D. 06/10/2020 3:09 PM
[2020-06-10] MEDS: ONDANSETRON INJ 2 MG/ML 2 ML VIAL IV PRN (17:02)
[2020-06-10] MEDS: traZODone HCL 100 MG TAB PO SCH (20:50)
[2020-06-10] MEDS: AMITRIPTYLINE HCL 25 MG TAB PO SCH (20:50)
[2020-06-10] MEDS: rOPINIRole HCL 0.25 MG TABLET PO SCH (20:51)
[2020-06-10] MEDS: MELATONIN 3 MG TAB PO SCH (20:51)
[2020-06-11] MEDS: LEVOTHYROXINE SODIUM 88 MCG TABLET PO SCH (05:24)
--- NOTE | 2020-06-11 08:03 | Hospitalist Progress Note ---
Date of Service June 11, 2020 Assessment & Plan (1) Constipation: 79 y/o F w/ hx of DM, GERD, and COPD on 2L home O2 who presents w/ N/V/abd pain thought 2/2 GERD and chronic constipation. Nausea, vomiting, abdominal pain, likely 2/2 GERD and chronic constipation - no recent emesis. +nausea and abd pain - PRN Tylenol for pain and PRN Dilaudid 0.25 mg IV q6h for severe pain - regimen of carafate, protonix, pepcid. 05/07/20 EGD showed gastritis, but no mention of ulcers. consider d/c of carafate. will d/c upon dispo - RLQ pain, hard to differentiate acute vs. chronic pain, but per hx, sounds chronic, 2 wk+. Less likely uti given lack of leukocytosis, fever, dysuria. will not order urine culture at this time. Admission CT abd did not suggest pyelo. - 06/11/20 advanced diet from full liq to soft chewable, tolerating - bowel regimen starting this evening because of diarrhea. pt refused saline enema yesterday because feels like passing liquid stool CM working on home health , home PT/OT, nursing approval Chronic back pain: - likely large component of biomechanical pain from Lspine paraspinal muscle spasms - counseled on utility of trial of outpatient OMT directed at soft tissue driving the biomechanical part of her pain - intrathecal pump that dispenses dilaudid and bupivacaine. -pain management ordered xr thoracic to look at intrathecal pump cath because of area of uncertainty on ct which turned out to be artifact. - appeared mildly oversedated during PM rounds. changed dilaudid .25mg IV q6hprn to q8hprn LLE swelling/pain - L venous doppler 06/10/20 was negative for DVT COPD (chronic obstructive pulmonary disease): - 2L O2 at home - O2 decreased from 3L to 2L, tolerating - no acute exacerbation. On no maintenance inhalers. IBS - hold regimen as above Diabetes mellitus: - continue current care and continue to follow sugars MATTI on CKD3 - renal function improving. 06/11/20 Cr 1.28, stable. Anxiety disorder: - home meds, klonopin. explained to patient that we should not add additional medications for anxiety at this time given concern for sedation and side effects. HTN: - follow on current meds, BP control reasonable. Restless legs syndrome (RLS): ropirinole .25 qhs Thyroid disease: Continue levothyroxine 88 mcg PO daily Sleep apnea: - Not on CPAP. Monitor for nocturnal hypoxia. FEN/GI: Full Liquid, DM2. tolerating pudding consistency diet. continue advancing diet DVT Prophylaxis: SQ Lovenox 40 mg Code Status: Conditional (Yes to ventilation, No to defibrillation/chest compressions) Disposition: med/surg. Goal is dispo to home (+ home health, CM is pending auth) 06/11/20. PT/OT recs reviewed. goal is home. patient's had been taking care of her. at bedside 06/11/20 and discussed preferences/concerns. (2) Abdominal pain: (3) Nausea and vomiting: (4) GERD (gastroesophageal reflux disease): (5) DVT prophylaxis: (6) Chronic back pain: (7) Restless legs syndrome (RLS): (8) Spinal stenosis of thoracolumbar region: (9) IBS (irritable bowel syndrome): (10) Dependence on continuous supplemental oxygen: (11) COPD (chronic obstructive pulmonary disease): (12) Sleep apnea: (13) HTN (hypertension): (14) DVT (deep venous thrombosis): (15) Diabetes mellitus: (16) Chronic kidney disease: (17) Anxiety disorder: Admission and Anticipated Discharge Date Admission Date: June 09, 2020 Supervising Physician Co-Signing Physician Notes Resident Physician Supervision Note: I independently interviewed and examined the patient and verified the finley history and physical, reviewed labs and image studies, discussed the case with the resident Dr. Cohen agree with the findings and care plan. Subjective BMs are very liquidy, passing on its own. Patient refused saline enema. Right now, her generalized belly pain is better than yesterday. R lower abd is still sore. Back is unchanged. Dilaudid and nausea medication are helping her symptoms a lot. Bloating unchanged. Doesn't feel ready for d/c today because of her pain and worry that she will start having dry heaves again. Wants something for her anxiety. Follows Dr. Rivera at [place] for this. Review of Systems Review of Systems: Constitutional: Denies fever, chills, weight change Eyes: Denies blurry vision, vision changes ENT: Denies sore throat, Cardiovascular: Denies Chest pain. + some palpitations, not new for her. Respiratory: Denies cough, sputum production, . + mild Gastrointestinal: Denies nausea, vomiting, constipation. + rlq abd pain Genitourinary: Denies urinary symptoms including dysuria Musculoskeletal: +back pain, unchanged Neurological: + burns, not new. tip of fingers are numb. no focal weakness. Physical Exam Physical Exam: General: Grossly A&O. NAD. Cooperative. HEENT: Atraumatic, normocephalic. EOMI Pulm: CTAB. -wheezes, -rales, -rhonchi. Symmetrical chest rise. No respiratory distress. Cardiac: RRR, -mrg. Radial pulses intact and symmetrical. Abdominal: Soft. Some RLQ TTP. Musculoskeletal: No pitting LE edema. Legs mildly diffusely sore to touch bilaterally. Results & Data Results & Data ([facility]) Vital Signs (Past 12 Hours) Vital Signs Temp Pulse Resp BP Pulse Ox 06/11/20 07:01 36.7 C 67 16 105/65 95 06/10/20 22:15 37.0 C 81 18 122/71 95 Resident Activity Tracking Resident Involvement: Resident Care Provided Care Provided: Adult Hospital Medicine
[2020-06-11 08:36] LABS: Basophils # (auto) 0.04 K/uL (0-0.2); Basophils % (auto) 0.6 %; Eosinophils # (auto) 0.31 K/uL (0-0.5); Eosinophils % (auto) 4.9 %; Hematocrit (blood only) 35.7 % (37-47); Immature Granulocytes # (auto) 0.02 K/uL (0.00-0.02); Immature Granulocytes % (auto) 0.3 %; Lymphocytes # (auto) 1.96 K/uL (1.2-3.4); Lymphocytes % (auto) 31.3 %; Mean Corpuscular Hemoglobin 28.4 pg (25-34); Mean Corpuscular Hgb Conc 30.8 g/dL (32-36); Mean Platelet Volume 9.6 fL (7.4-10.4); Monocytes # (auto) 0.62 K/uL (0.11-0.59); Monocytes % (auto) 9.9 %; Neutrophils # (auto) 3.32 K/uL (1.4-6.5); Platelet Count 276 K/uL (130-400); RDW Coefficient of Variation 12.8 % (11.5-14.5); RDW Standard Deviation 43.3 fL (36.4-46.3); Red Blood Count 3.88 M/uL (4.2-5.4); White Blood Count 6.27 K/uL (4.8-10.8)
[2020-06-11] MEDS: SUCRALFATE 1 GM/10 ML UDC PO SCH ×4 (08:36→21:54)
--- NOTE | 2020-06-11 08:37 | Pain Management Progress Note ---
Date of Service June 11, 2020 Assessment & Plan (1) Chronic back pain: Present on Admission?: Yes (2) Postlaminectomy syndrome of lumbosacral region: Present on Admission?: Yes (3) Presence of intrathecal pump: * CT scan reviewed with patient which expressed concern about an equivocal discontinued he of the catheter projected over the left upper quadrant. Will follow through with thoracolumbar x-ray to evaluate the catheter from intrathecal pump to tip * Further discussion regarding her potential candidacy for catheter revision pending review of x-ray results * Consider transitioning from IV hydromorphone to oral hydrocodone 5/325 mg every 6 hours as needed to assess tolerability/efficacy Present on Admission?: Yes Admission and Anticipated Discharge Date Admission Date: June 09, 2020 Subjective Mrs. Rubalcava is reporting improvement in her abdominal pain but no change in her chronic lumbosacral pain. CT scan was completed yesterday at a time to further evaluate her intrathecal catheter. She reports IV hydromorphone is efficacious at diminishing the severity of her back pain without notable side effects. The patient is moving her bowels with loose stools over the past 24 hours with corresponding improvement in abdominal pain complaints. The patient continues to deny radicular component the pain complaints. Her pain remains 100% axial lumbosacral region which is similar in location and characteristic as chronic c omplaints. Her pain continues to range between a 5-9/10. Patient has no further constitutional complaints at this time. Plan of care discussed with Dr. Victoria Kelley. Physical Exam Physical Exam: General: Patient lying quietly in exam room in no acute distress. Speech and thought process appropriate. Mood and affect appropriate. Cognition intact. Abdomen: Soft and nondistended. Minimal tenderness in the right lower quadrant without rebound or guarding. Nontender over the intrathecal pump site in the left lower quadrant. Results (Pain [facility]) Diagnostic Review CT: non enhanced, reports reviewed and images reviewed CT Findings: [facility] [address], [place] [phone] CT Scan Report Patient: MARIANA RUBALCAVA Date: 06/09/20 MR#: [id number]: [address] [facility] Acct ID:[id number]: Date: 1940[facility] Zip: [facility] [place] [address] Age: 79Location: 2N Sex: FRoom/Bed: N2-2 Att Phy: UrbanoEden MDDiagnosis: VOMITING, ABDOMINAL PAIN, GERD Jacey Phy: Ena Coreas M.D.Service Date: 06/10/20 [facility] Phy:Interpreting Phy: Minor Hayes MD Admit Phy: Genaro Ortez MD Ordering Phy: Oc Magallon PA-C cc: ~ CT thoracic spine wo con CT DOSE: 1251.83 mGy.cm CLINICAL HISTORY: Intractable back pain, intrathecal pump, rule out catheter fracture TECHNIQUE: Helical images were acquired in the transverse plane. Sagittal and coronal reformatted images were reviewed. A dose lowering technique was utilized adhering to the principles of ALARA. COMPARISON STUDY: MRI the thoracic spine performed 01/22/2020 FINDINGS: There is mild dilatation of the upper thoracic esophagus. There is equivocal wall thickening. There are advanced degenerative changes present within the thoracic spine. There is an old severe T12 compression fracture status post vertebroplasty. Compression deformities of the T11 T5 T4 and T3 and T2 vertebra are also evident. There is mild retropulsion of the T12 fracture with T12-L1 posterior spurring. There is a disc osteophyte complex at the T10-11 level. The patient has intrathecal catheter. The tip terminates at the T5-6 level. No intraspinal catheter fractures are visualized. On the power plant superintendent radiograph, there is an equivocal discontinuity of the catheter projected over the left upper quadrant. It is quite possible this is artifactual. Correlation with a conventional x-ray examination is recommended in follow-up. 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 IMPRESSION: 1. Multiple old vertebral body compression fractures. Evidence of a prior T12 vertebroplasty 2. Intrathecal catheter terminating at the T5-6 level. No intraspinal catheter fractures are visualized 3. On the localizer image, there is an equivocal discontinuity of the catheter projected over the left upper quadrant. This could be artifactual. Correlation with a conventional x-ray examination is recommended in follow-up ACT 112: Negative or not required by law. Electronically signed by: Minor Hayes M.D. 06/10/2020 11:49 AM Dictated: 06/10/20 1140 Transcribed: 06/10/20 1140
[2020-06-11 09:07] LABS: BUN Creatinine Ratio 6.1 (10-20); Calcium 9.1 mg/dl (8.5-10.1); Creatinine Clr Calc Pharmacy 38.7 ml/min; Est GFR (African American) 45.7; Est GFR (Non-African American) 39.4
[2020-06-11] MEDS: PANTOprazole 40 MG in SYRINGE 0 ML IV SCH ×2 (09:48→21:53)
[2020-06-11] MEDS: FAMOTIDINE 20 MG in SYRINGE 3 ML IV SCH ×2 (09:49→21:53)
[2020-06-11] MEDS: clonazePAM 1 MG TAB PO SCH ×2 (09:49→21:54)
[2020-06-11] MEDS: HYDROmorphone INJ 0.5 MG/0.5 ML SYR IV PRN ×2 (09:49→16:08)
--- NOTE | 2020-06-11 09:54 | XRay Report ---
XR thoracolumbar spine 2V CLINICAL HISTORY: Evaluate IT catheter from pump to tip r/o cath fx COMPARISON STUDY: Thoracic spine CT June 10, 2020. Thoracolumbar spine radiographs October 11. FINDINGS: Intrathecal catheter is noted. The tip is at the T5-T6 level. The catheter is intact. Equiv ocal catheter discontinuity shown on CT of the thoracic spine from June 10, 2020 was artifactual. A small portion of the extracanalicular portion of the catheter is suboptimally assessed on this exam due to to overpenetration however the catheter appears intact. No discontinuity is identified on thi s examination. Left lower quadrant pump is noted. T12 vertebroplasty is noted. Multiple additional th oracic spine fractures are better depicted on prior CT. Severe multilevel degenerative changes within lumbar spine are noted. IMPRESSION: 1. Intrathecal catheter intact. Possible discontinuity shown on CT of June 10, 2020 was artifactua l. A small portion of the catheter on this exam is suboptimally assessed due to overpenetration but n o evidence for discontinuity. 2. Tip of the intrathecal catheter at the T5-T6 level. 3. Several old thoracic spine compression fractures and severe multilevel degenerative changes within the lumbar spine. ACT 112: Negative or not required by law. Electronically signed by: Yung Mayers M.D. 06/11/2020 9:53 AM
[2020-06-11] MEDS: CHOLECALCIFEROL 1,000 UNITS 25 MCG TAB PO SCH (09:55)
[2020-06-11] MEDS: SENNA 8.6 MG TAB PO SCH (09:55)
[2020-06-11] MEDS: DOCUSATE SODIUM 100 MG CAP PO SCH (09:55)
[2020-06-11] MEDS: POLYETHYLENE (MIRALAX) 17 GM PACK PO SCH (09:56)
[2020-06-11] MEDS: DICLOFENAC SOD 1% GEL 100 GM TUBE EXT SCH ×4 (09:56→21:54)
[2020-06-11] MEDS: ENOXAPARIN INJ 40 MG/0.4 ML SYR SQ SCH (09:56)
[2020-06-11] MEDS: INSULIN ASPART 100 UNITS/ML 3 ML PEN SC SCH ×4 (10:46→22:06)
[2020-06-11] MEDS: ONDANSETRON INJ 2 MG/ML 2 ML VIAL IV PRN (16:09)
[2020-06-11] MEDS ORDERED: HYDROmorphone INJ 0.5 MG/0.5 ML SYR IV PRN (18:37)
[2020-06-11] MEDS: rOPINIRole HCL 0.25 MG TABLET PO SCH (21:53)
[2020-06-11] MEDS: AMITRIPTYLINE HCL 25 MG TAB PO SCH (21:54)
[2020-06-11] MEDS: MELATONIN 3 MG TAB PO SCH (21:54)
[2020-06-11] MEDS: traZODone HCL 100 MG TAB PO SCH (21:54)
[2020-06-12 06:36] LABS: Hemoglobin 10.6 g/dL (12.0-16.0); Mean Corpuscular Hemoglobin 28.5 pg (25-34); Mean Corpuscular Hgb Conc 31.2 g/dL (32-36); Mean Corpuscular Volume 91.4 fL (80-100); Mean Platelet Volume 9.5 fL (7.4-10.4); Platelet Count 277 K/uL (130-400); RDW Coefficient of Variation 12.9 % (11.5-14.5); RDW Standard Deviation 43.2 fL (36.4-46.3); Red Blood Count 3.72 M/uL (4.2-5.4); White Blood Count 6.38 K/uL (4.8-10.8)
[2020-06-12] MEDS: LEVOTHYROXINE SODIUM 88 MCG TABLET PO SCH (06:42)
[2020-06-12 07:04] LABS: BUN Creatinine Ratio 7.5 (10-20); Calcium 9.3 mg/dl (8.5-10.1); Creatinine Clr Calc Pharmacy 35.4 ml/min; Est GFR (Non-African American) 35.4; Potassium 4.2 mmol/L (3.5-5.1)
--- NOTE | 2020-06-12 09:13 | Hospitalist Progress Note ---
Date of Service June 12, 2020 Assessment & Plan (1) Constipation: 79 y/o F w/ hx of DM, GERD, and COPD on 2L home O2 who presents w/ N/V/abd pain thought 2/2 GERD and chronic constipation. Nausea much improved, vomiting resolved, tolerating PO. + bloating and diarrhea. Nausea, vomiting, abdominal pain, likely 2/2 GERD and chronic constipation - no recent emesis. +nausea and abd pain - PRN Tylenol for pain and PRN Dilaudid 0.25 mg IV q6h for severe pain - regimen of carafate, protonix, pepcid. 05/07/20 EGD showed gastritis, but no mention of ulcers. consider d/c of carafate. will d/c upon dispo - RLQ pain, hard to differentiate acute vs. chronic pain, but per hx, sounds chronic, 2 wk+. Less likely uti given lack of leukocytosis, fever, dysuria. will not order urine culture at this time. Admission CT abd did not suggest pyelo. - 06/11/20 advanced diet from full liq to soft chewable, tolerating - d/c bowel regimen starting 06/11/20 evening because of diarrhea. 06/12/20 ordered c diff for diarrhea - negative Chronic back pain - likely large component of biomechanical pain from Lspine paraspinal muscle spasms - counseled on utility of trial of outpatient OMT directed at soft tissue driving the biomechanical part of her pain - intrathecal pump that dispenses dilaudid and bupivacaine. -pain management ordered xr thoracic to look at intrathecal pump cath because of area of uncertainty on ct which turned out to be artifact. - 06/11/20 changed dilaudid .25mg IV q6hprn to q8hprn because appeared mildly oversedated during PM rounds - 06/12/20 per recs from 06/11/20 pain management note, discontinued IV dilaudid and replaced w/ roxycodone 5 mg q6 prn for severe pain (instead of oxy because also has prn tylenol for pain). depending on pain control on this, may continue as outpatient. will need outpt f/u w/ pain management. LLE swelling/pain - L venous doppler 06/10/20 was negative for DVT COPD (chronic obstructive pulmonary disease): - 2L O2 at home - O2 decreased from 3L to 2L, tolerating - no acute exacerbation. On no maintenance inhalers. IBS - hold regimen as above Diabetes mellitus: - continue current care and continue to follow sugars. SSI, hasn't required past day. A1C 6.9 06/08/20. MATTI on CKD3 - renal function improving. 06/11/20 Cr 1.28, stable. Anxiety disorder: - home meds, klonopin. explained to patient that we should not add additional medications for anxiety at this time given concern for sedation and side ef fects. HTN: - follow on current meds, BP control reasonable. Restless legs syndrome (RLS): ropirinole .25 qhs Thyroid disease: Continue levothyroxine 88 mcg PO daily Sleep apnea: - Not on CPAP. Monitor for nocturnal hypoxia. FEN/GI: Full Liquid, DM2. tolerating pudding consistency diet. continue advancing diet DVT Prophylaxis: SQ Lovenox 40 mg Code Status: Conditional (Yes to ventilation, No to defibrillation/chest compressions) Disposition: med/surg. Goal is dispo to home (+ [facility], CM is pending auth) 06/11/20. PT/OT recs reviewed. goal is home. patient's had been taking care of her. at bedside 06/11/20 and discussed preferences/concerns. 06/12/20 per case management: [facility] rejected. Referral placed to [facility], awaiting determination. (2) Abdominal pain: (3) Nausea and vomiting: (4) GERD (gastroesophageal reflux disease): (5) DVT prophylaxis: (6) Chronic back pain: (7) Restless legs syndrome (RLS): (8) Spinal stenosis of thoracolumbar region: (9) IBS (irritable bowel syndrome): (10) Dependence on continuous supplemental oxygen: (11) COPD (chronic obstructive pulmonary disease): (12) Sleep apnea: (13) HTN (hypertension): (14) DVT (deep venous thrombosis): (15) Diabetes mellitus: (16) Chronic kidney disease: (17) Anxiety disorder: Admission and Anticipated Discharge Date Admission Date: June 09, 2020 Supervising Physician Co-Signing Physician Notes Resident Physician Supervision Note: I independently interviewed and examined the patient and verified the finley history and physical, reviewed labs and image studies, discussed the case with the resident Dr. Esparza and agree with the findings and care plan. Subjective Eating breakfast, but upset from pain. Hasn't received Dilaudid since yesterday evening, so pain is currently bad. 03/01 pain R abd. No dry heaving and has tolerated 3 solid meals now w/o N/V. + lots of liquidy diarrhea. Breathing is ok. Not complaining of leg pain. Review of Systems Review of Systems: Constitutional: Denies fever, chills Cardiovascular: Denies chest pain Respiratory: Denies shortness of breath, cough, difficulty breathing Gastrointestinal: Denies nausea, vomiting, constipation. + bloating Genitourinary: Denies urinary symptoms Musculoskeletal: Denies new weakness Neurological: Denies headache or dizziness Physical Exam Physical Exam: General: Grossly A&O. NAD. Cooperative. HEENT: Atraumatic, normocephalic. EOMI Pulm: CTAB. -wheezes, -rales, -rhonchi. No respiratory distress. Cardiac: RRR, -mrg. Radial pulses intact and symmetrical. Abdominal: Nontender, nondistended, soft. Msk: puffy legs, no pitting edema. Results & Data Results & Data ([facility]) Vital Signs (Past 12 Hours) Vital Signs Temp Pulse Resp BP Pulse Ox 06/12/20 07:08 36.7 C 64 14 109/65 98 06/11/20 23:05 37 C 67 18 113/70 98 Resident Activity Tracking Resident Involvement: Resident Care Provided Care Provided: Adult Hospital Medicine
[2020-06-12] MEDS: SUCRALFATE 1 GM/10 ML UDC PO SCH ×4 (09:30→20:29)
[2020-06-12] MEDS: INSULIN ASPART 100 UNITS/ML 3 ML PEN SC SCH ×4 (09:30→20:38)
[2020-06-12] MEDS: CHOLECALCIFEROL 1,000 UNITS 25 MCG TAB PO SCH (10:48)
[2020-06-12] MEDS: clonazePAM 1 MG TAB PO SCH ×2 (10:48→20:28)
[2020-06-12] MEDS: FAMOTIDINE 20 MG in SYRINGE 3 ML IV SCH ×2 (10:48→21:08)
[2020-06-12] MEDS: ENOXAPARIN INJ 40 MG/0.4 ML SYR SQ SCH (10:48)
[2020-06-12] MEDS: PANTOprazole 40 MG in SYRINGE 0 ML IV SCH ×2 (10:49→20:29)
[2020-06-12] MEDS: DICLOFENAC SOD 1% GEL 100 GM TUBE EXT SCH ×4 (10:49→20:28)
[2020-06-12] MEDS: oxyCODONE HCL IR 5 MG TAB (IMMEDIATE RELEASE) PO PRN ×3 (13:02→20:28)
[2020-06-12] MEDS: rOPINIRole HCL 0.25 MG TABLET PO SCH (20:28)
[2020-06-12] MEDS: traZODone HCL 100 MG TAB PO SCH (20:28)
[2020-06-12] MEDS: AMITRIPTYLINE HCL 25 MG TAB PO SCH (20:28)
[2020-06-12] MEDS: MELATONIN 3 MG TAB PO SCH (21:07)
[2020-06-13] MEDS: oxyCODONE HCL IR 5 MG TAB (IMMEDIATE RELEASE) PO PRN ×3 (02:11→14:49)
[2020-06-13] MEDS: LEVOTHYROXINE SODIUM 88 MCG TABLET PO SCH (05:33)
[2020-06-13 08:30] LABS: Hematocrit (blood only) 34.8 % (37-47); Hemoglobin 10.5 g/dL (12.0-16.0); Mean Corpuscular Hemoglobin 28.1 pg (25-34); Mean Corpuscular Hgb Conc 30.2 g/dL (32-36); Mean Platelet Volume 9.6 fL (7.4-10.4); Platelet Count 307 K/uL (130-400); RDW Coefficient of Variation 13.1 % (11.5-14.5); RDW Standard Deviation 44.3 fL (36.4-46.3); Red Blood Count 3.74 M/uL (4.2-5.4); White Blood Count 7.23 K/uL (4.8-10.8)
[2020-06-13] MEDS: SUCRALFATE 1 GM/10 ML UDC PO SCH ×3 (08:43→17:59)
[2020-06-13] MEDS: FAMOTIDINE 20 MG in SYRINGE 3 ML IV SCH (08:44)
[2020-06-13] MEDS: CHOLECALCIFEROL 1,000 UNITS 25 MCG TAB PO SCH (08:44)
[2020-06-13] MEDS: PANTOprazole 40 MG in SYRINGE 0 ML IV SCH (08:44)
[2020-06-13] MEDS: DICLOFENAC SOD 1% GEL 100 GM TUBE EXT SCH ×3 (08:45→17:23)
[2020-06-13] MEDS: ENOXAPARIN INJ 40 MG/0.4 ML SYR SQ SCH (08:45)
[2020-06-13] MEDS: clonazePAM 1 MG TAB PO SCH (08:46)
[2020-06-13] MEDS: INSULIN ASPART 100 UNITS/ML 3 ML PEN SC SCH ×3 (08:49→18:00)
[2020-06-13 08:56] LABS: Est GFR (African American) 46.6
[2020-06-13 08:57] LABS: BUN Creatinine Ratio 11.3 (10-20); Calcium 9.1 mg/dl (8.5-10.1); Creatinine Clr Calc Pharmacy 39.4 ml/min; Est GFR (Non-African American) 40.2
--- NOTE | 2020-06-13 10:13 | Hospitalist Progress Note ---
Date of Service June 13, 2020 Assessment & Plan (1) Constipation: 79 y/o F w/ hx of DM, GERD, and COPD on 2L home O2 who presents w/ N/V/abd pain thought 2/2 GERD and chronic constipation. Nausea much improved, vomiting resolved, tolerating PO. + bloating and diarrhea. heart lungs ok. legs unchanged. rflank/rlq tenderness Nausea, vomiting, abdominal pain, likely 2/2 GERD and chronic constipation - no recent emesis. +nausea and abd pain - PRN Tylenol for pain and PRN Dilaudid 0.25 mg IV q6h for severe pain - regimen of carafate, protonix, pepcid. 05/07/20 EGD showed gastritis, but no mention of ulcers. consider d/c of carafate. will d/c upon dispo - RLQ pain, hard to differentiate acute vs. chronic pain, but per hx, sounds chronic, 2 wk+. Less likely uti given lack of leukocytosis, fever, dysuria. will not order urine culture at this time. Admission CT abd did not suggest pyelo. - 06/11/20 advanced diet from full liq to soft chewable, tolerating - d/c bowel regimen starting 06/11/20 evening because of diarrhea. 06/12/20 ordered c diff for diarrhea - negative Chronic back pain - likely large component of biomechanical pain from Lspine paraspinal muscle spasms - counseled on utility of trial of outpatient OMT directed at soft tissue driving the biomechanical part of her pain - intrathecal pump that dispenses dilaudid and bupivacaine. -pain management ordered xr thoracic to look at intrathecal pump cath because of area of uncertainty on ct which turned out to be artifact. - 06/11/20 changed dilaudid .25mg IV q6hprn to q8hprn because appeared mildly oversedated during PM rounds - 06/12/20 per recs from 06/11/20 pain management note, discontinued IV dilaudid and replaced w/ roxycodone 5 mg q6 prn for severe pain (instead of oxy because also has prn tylenol for pain). depending on pain control on this, may continue as outpatient. will need outpt f/u w/ pain management. LLE swelling/pain - L venous doppler 06/10/20 was negative for DVT COPD (chronic obstructive pulmonary disease): - 2L O2 at home - O2 decreased from 3L to 2L, tolerating - no acute exacerbation. On no maintenance inhalers. IBS - hold regimen as above Diabetes mellitus: - continue current care and continue to follow sugars. SSI, hasn't required past day. A1C 6.9 06/08/20. MATTI on CKD3 - renal function improving. 06/11/20 Cr 1.28, stable. Anxiety disorder: - home meds, klonopin. explained to patient that we should not add additional medications for anxiety at this time given concern for sedation and side effects. HTN: - follow on current meds, BP control reasonable. Restless legs syndrome (RLS): ropirinole .25 qhs Thyroid disease: Continue levothyroxine 88 mcg PO daily Sleep apnea: - Not on CPAP. Monitor for nocturnal hypoxia. FEN/GI: Full Liquid, DM2. tolerating pudding consistency diet. continue advancing diet DVT Prophylaxis: SQ Lovenox 40 mg Code Status: Conditional (Yes to ventilation, No to defibrillation/chest compressions) Disposition: med/surg. Goal is dispo to home (+ [facility], CM is pending auth) 06/11/20. PT/OT recs reviewed. goal is home. patient's had been taking care of her. at bedside 06/11/20 and discussed preferences/concerns. 06/12/20 per case management: [facility] rejected. Referral placed to [facility], awaiting determination. (2) Abdominal pain: (3) Nausea and vomiting: suspect GERD and constipation -manage both as below -follow clinically/serial exams (4) GERD (gastroesophageal reflux disease): Continue Pantoprazole 40 mg IV BID and Famotidine 20 mg IV BID Continue bowel regimen with Miralax 17g PO BID in 8 oz glass of water Continue supportive care Consider pain management consult (5) DVT prophylaxis: (6) Chronic back pain: (7) Restless legs syndrome (RLS): (8) Spinal stenosis of thoracolumbar region: (9) IBS (irritable bowel syndrome): (10) Dependence on continuous supplemental oxygen: (11) COPD (chronic obstructive pulmonary disease): (12) Sleep apnea: (13) HTN (hypertension): (14) DVT (deep venous thrombosis): (15) Diabetes mellitus: (16) Chronic kidney disease: (17) Anxiety disorder: Admission and Anticipated Discharge Date Admission Date: June 09, 2020 Subjective no nausea/v. no more diarr or bm. denies constipation mild heartburn and R abd/flank pain main concerns. heart lungs ok. legs unchanged. rflank/rlq tenderness periumb hernia f/u cm hh Results & Data Results & Data ([facility]) Vital Signs (Past 12 Hours) Vital Signs Temp Pulse Resp BP BP Pulse Ox 06/13/20 07:30 36.7 C 71 18 111/66 100 06/12/20 23:07 36.8 C 71 16 114/69 99
--- NOTE | 2020-06-14 00:26 | Discharge Summary ---
Date of Service June 14, 2020 Admission HPI Per Admitting Provider Miriam Rubalcava is an 79 year old female who presents to the ER with nausea, vomiting and abdominal pain. Difficult to get a clear history from the patient as to what symptoms are chronic or acute. She reports having nausea and vomiting severely getting progressively worse over the last week. The main thing she is concerned about is getting something for her "nerves". She notes multiple prior similar episodes for which she has been hospitalized in [facility] but tells me they did not do anything for her except for IV fluids. When I mentioned giving Ativan for her anxiety her notes she has had this on multiple prior hospitalizations which has been helpful. She was recently diagnosed with uncontrolled GERD and her omeprazole was switched to pantoprazole BID although esomeprazole listed on her med rec. She is unable to tell me her medications or why/when they were changed. She is unsure whether the change in medications is what made things worse. She has multiple chronic pains. The most severe of which appears to be coming from her back radiating down both her sides. She also reports her problems have been since her pain pump was replaced approximately 3 years ago and wonders whether it is working problem. She reports severity 9/10 pain and is requesting something for this. It is worse on any movement. She was recently referred to neurosurgery at [facility] for evaluation by neurology for chronic thoracolumbar pain/radiculopathy/spinal stenosis and follows with pain management with multiple side effects to opiates including morphine, codeine and oxycodone listed in EHR. She is unable to tell me if any other pain medications have worked before in the past. She notes taking acetaminophen at home but this doesn't work. In addition to her back pain she also has suprapubic pain but is moderate compared to her other pains. Unable to tell me much about this other than it is chronic. In addition she has epigastric pain, worse on palpation. No worse with oral intake. Admission Exam Per Admitting Provider Constitutional: + morbidly obese; + not well nourished Eyes: + anicteric sclerae; normal pupil size ENMT: external ear and nose normal, oropharynx normal Neck: + short neck and + thick neck Respiratory: normal respiratory effort, lungs clear to auscultation Cardiovascular: Rate/Rhythm: regular rate and regular rhythm Heart Sounds: no murmur Extremities: + pedal edema (1+ to mid shins equal b/l) Gastrointestinal (Abdomen): Inspection/Auscultation: + abdomen distended (obese abdomen) and normal bowel sounds Percussion/Palpation: + abdomen tender (suprapubic and epigastric) and abdomen soft; no guarding and abdomen not rigid Musculoskeletal: Spine: + paraspinal tenderness Skin: no rashes, warm and dry Neurologic: moves all extremities and awake; not confused Speech / Cognition: normal speech Motor/Sensory: no tremor Psychiatric: Orientation: alert and oriented x 3 Affect: + anxious affect Mood: + anxious mood Genitourinary: no CVA tenderness Principal Diagnosis GERD, chronic constipation, chronic low back pain Discharge Exam General: Grossly A&O. NAD. Cooperative. HEENT: Atraumatic, normocephalic. EOMI Pulm: CTAB. -wheezes, -rales, -rhonchi. No respiratory distress. Cardiac: RRR, -mrg. Radial pulses intact and symmetrical. Abdominal: RLQ R flank mild-moderate tenderness w/ no rebound, guarding, or rigidity. nondistended, soft. Mild periumbilical hernia. Discharge Data Allergies Allergy/AdvReac Type Severity Reaction Status Date / Time acetaminophen [From Percocet] Allergy Mild N/V Verified 05/31/20 10:48 adhesive tape Allergy Mild RED AND Verified 05/31/20 10:48 SORE butorphanol Allergy Mild N/V Verified 05/31/20 10:48 lubiprostone [From Amitiza] Allergy Mild Rash Verified 05/31/20 10:48 morphine Allergy Mild SWELLING Verified 05/31/20 10:48 oseltamivir [From Tamiflu] Allergy Mild N/V Verified 05/31/20 10:48 codeine Allergy Unknown SWELLING Verified 05/31/20 10:48 iodine Allergy Unknown Rash Verified 05/31/20 10:48 oxycodone Allergy Unknown AGITATION Verified 05/31/20 10:48 shellfish derived Allergy Unknown SWELLS Verified 05/31/20 10:48 Sulfa (Sulfonamide Allergy Unknown SWELLING Verified 05/31/20 10:48 Antibiotics) Consultations 06/07/20 15:47 ED Decision to Admit Stat 06/08/20 07:26 Consult Gastroenterology Routine Consult Pain Management Routine Ordered Studies 06/07/20 14:35 CT abd pelvis wo con Stat 06/10/20 08:33 CT thoracic spine wo con Routine 06/10/20 15:00 US venous doppler LE LT Stat Hospital Course (1) Constipation: Miriam Rubalcava is a 79 y/o F w/ hx of DM, GERD, chronic low back pain w/ intrathecal pain pump and COPD on 2L home O2 who presented to [facility] on 06/07/20 for N/V/abd pain thought 2/2 GERD and chronic constipation. After bowel regimen, N/V resolved and is tolerating PO. Her main concern is RLQ pain that is most likely 2/2 to her chronic back pains. - patient will f/u w/ PCP Dr. Ena Coreas early Jun 2020, already has appointment. continue miralax, senna, colace prn if constipation returns. - sending home w/ short course of oxycodone 5 bid prn, patient tolerated during the admission - patient has f/u w/ ortho at [facility] and [facility] pain management next 2 wks. Very important that patient follows pain management because her main complaint has been back/R abd/flank chronic pain. Nausea, vomiting, abdominal pain, likely 2/2 GERD and chronic constipation - initially used regimen of carafate, protonix, pepcid. 05/07/20 EGD showed gastritis, but no mention of ulcers. - RLQ pain, hard to differentiate acute vs. chronic pain, but per hx, sounds chronic, 2 wk+. No concern of UTI. Admission CT abd did not suggest pyelo. - 06/11/20 advanced diet from full liq to soft chewable, tolerating - d/c'd bowel regimen starting 06/11/20 evening because of diarrhea. no constipation upon discharge home and diarrhea has not returned. 06/12/20 neg for c diff. - home BM regimen as tolerated/needed. routine outpt f/u w/ Dr. Vieyra [facility]. no specific intervention indicated at this time. GI had signed off early on in the hospital course. Chronic back pain - likely large component of biomechanical pain from Lspine paraspinal muscle spasms - counseled on utility of trial of outpatient OMT directed at soft tissue driving the biomechanical part of her pain - intrathecal pump that dispenses dilaudid and bupivacaine. -pain management consulted - ordered xr thoracic to look at intrathecal pump cath because of area of uncertainty on ct which turned out to be artifact. xr did not show any fracture of catheter. - 06/11/20 changed dilaudid .25mg IV q6hprn to q8hprn because appeared mildly oversedated during PM rounds - 06/12/20 per recs from 06/11/20 pain management note, discontinued IV dilaudid 0.25 prn and replaced w/ oxycodone 5 mg PO q6 prn for severe pain (instead of oxy+acetaminophen because also has prn tylenol for pain). tolerated. f/u w/ outpatient pain management. LLE swelling/pain - L venous doppler 06/10/20 was negative for DVT COPD (chronic obstructive pulmonary disease): - 2L O2 at home - needed 3L initially while here, but decreased back to 2L and tolerated well for multiple days - no acute exacerbation. On no maintenance inhalers. IBS - chronic, some contribution to her symptoms, but her diarrhea this admission was likely secondary to Miralax which resolved after holding Diabetes mellitus: A1C 6.9 06/08/20. discharge on home lantus 20. MATTI on CKD3 - improved, last Cr 06/13/20 is 1.26H Anxiety disorder: - continued home klonopin. patient requested Ativan, but we declined and explained that we did not want to oversedate, especially since there was mild oversedation on the IV 0.25 dilaudid. HTN: - continued current meds, BP control reasonable during admission Restless legs syndrome (RLS): continued ropirinole .25 qhs Thyroid disease: continued levothyroxine 88 mcg PO daily Sleep apnea: - Not on CPAP DVT Prophylaxis: SQ Lovenox 40 mg provided during the admission Code Status: Conditional (Yes to ventilation, No to defibrillation/chest compressions) dispo: home w/ home health [facility] (2) Abdominal pain: (3) Nausea and vomiting: (4) GERD (gastroesophageal reflux disease): (5) DVT prophylaxis: (6) Chronic back pain: (7) Restless legs syndrome (RLS): (8) Spinal stenosis of thoracolumbar region: (9) IBS (irritable bowel syndrome): (10) Dependence on continuous supplemental oxygen: (11) COPD (chronic obstructive pulmonary disease): (12) Sleep apnea: (13) HTN (hypertension): (14) DVT (deep venous thrombosis): (15) Diabetes mellitus: (16) Chronic kidney disease: (17) Anxiety disorder: Total Time Total Time Spent Total Time Spent (In Minutes): Please see attending documentation. Discharge Plan Discharge Items Patient Disposition: Home - Home Health Services Reason For Visit: VOMITING, ABDOMINAL PAIN, GERD Discharge Diagnosis: GERD and chronic constipation Activity: Per Instructions section Non-emergency contact: Primary Care Provider, Compliance Project Manager and Pain Management Call non-emergency contact if: your symptoms worsen and you have a fever Follow-up/Referrals: Ena Coreas MD [Primary Care Provider] - Diet: Regular and Carb Consistent or DM2 Addtl Attending Provider Instructions: Hi Mrs. Rubalcava. You were admitted to [facility] on 06/07/20 for nausea, vomiting, and abdominal pain. The team thought that your symptoms were from combination of heartburn and constipation. We ordered a CT scan of you abdomen and it did not show any obstruction. Dr. Vieyra, your GI doctor, saw you and started you on a bowel regimen, including Bentyl, Colace, and Miralax. After several days, you passed a lot of liquidy stool and some of the discomfort was improved. We were then able to stop giving the bowel regiment. The pain management team also saw you and did both a CT and xray scan to look at your pain pump. The scans did not suggest damage to the pump/catheter. We also checked an ultrasound of your left leg because you had some pain and swelling. It did not show any blood clot. The plan is to follow up with pain management. You stated that you have an appointment at [facility]/ orthopedics next Wednesday and that you already have an appointment with pain management first week of June. Please also see your primary care provider in 1 week. You stated that you already have an appointment with your PCP Dr. Ena Bolivar next Wednesday in [facility]. [phone]. Return precautions. If you develop any new or worsening symptoms including fever, chills, sweats, chest pain, chest pressure, difficulty breathing, uncontrolled nausea/vomiting, rash, wheezing, passing out or nearly passing out, bleeding, black/bloody bowel movements, or other new or concerning symptoms please call your primary care physician, or call 911 for re-evaluation in the emergency department if you are very concerned. Pending Studies at Discharge: No Stand-Alone Forms: My [facility], Smoking Cessation Medications and DC Order Prescriptions: New oxycodone 5 mg tablet 5 mg PO BID PRN (Reason: pain) Qty: 7 RF: 0 Continued acetaminophen 500 mg capsule 1,000 mg PO Q6H PRN (Reason: Pain) RF: 0 cholecalciferol (vitamin D3) 25 mcg (1,000 unit) capsule 25 mcg PO DAILY RF: 0 hydroxyzine HCl 25 mg tablet 50 mg PO TID PRN (Reason: Anxiety) RF: 0 furosemide [Lasix] 40 mg tablet 40 mg PO BID RF: 0 potassium chloride 20 mEq tablet extended release 20 meq PO BID RF: 0 trazodone 100 mg tablet 100 mg PO HS RF: 0 clonazepam 1 mg tablet 1 mg PO BID RF: 0 Fetzima 80 mg capsule,extended release 24 hr 80 mg PO QAM RF: 0 spironolactone 25 mg tablet 25 mg PO BID RF: 0 melatonin 10 mg tablet 10 mg PO HS RF: 0 levothyroxine 88 mcg capsule 88 mcg PO QAM RF: 0 docusate sodium 100 mg capsule 100 mg PO BID RF: 0 Lantus U-100 Insulin 100 unit/mL solution 20 unit SQ HS RF: 0 esomeprazole magnesium [Nexium] 40 mg capsule,delayed release(DR/EC) 40 mg PO DAILY Qty: 30 RF: 2 famotidine 20 mg tablet 20 mg PO BID 30 Days Qty: 60 RF: 2 ropinirole 0.25 mg tablet 0.25 mg PO HS Qty: 30 RF: 5 cyanocobalamin (vitamin B-12) 1,000 mcg/mL solution 1,000 mcg IM .Q3 MONTHS RF: 0 ondansetron HCl [Zofran] 4 mg tablet 4 mg PO Q8H PRN (Reason: Nausea And Vomiting) RF: 0 sennosides [senna] 8.6 mg Tablet 8.6 mg PO BID RF: 0 amitriptyline 25 mg Tablet 25 mg PO HS RF: 0 Discharge Orders: Discharge Order (Routine); Ordered 06/13/20 Ordered By: Galen Patton/Other Patient Handouts: Managing Type 2 Diabetes Admission Data Admit Date/Time: 06/09/20 16:43 Attending Provider: Eden Clement Admit Provider: Genaro Ortez Primary Care Provider: Ena Coreas Other Providers: Genaro Ortez ; Too Vieyra ; Victoria Kelley ; Corey Haney Other Interventions: Discharge Summary Assessment (RN) Last Done: 06/13/20 19:30 Supervising Physician Co-Signing Physician Notes Resident Physician Supervision Note: I independently interviewed and examined the patient and verified the finley history and physical, reviewed labs and image studies, discussed the case with the resident Dr. Esparza and agree with the findings and care plan. Resident Activity Tracking Resident Involvement: Resident Care Provided Care Provided: Adult Hospital Medicine
--- NOTE | 2020-06-25 08:13 | Coding Query ---
CODING QUERY To promote full compliance with coding requirements relating to patient care, provider participation is requested in all cases of linesperson uncertainty. Please assist us with the question(s) below: Please clarify the meaning of MATTI. MATTI is not a valid abbreviation. Thank you for your hel! ( x ) Acute Kidney Injury ( ) Acute Kidney Insufficiency ( ) Other (Specify): Principal Diagnosis: "that condition established after study, to be chiefly responsible for occasioning the admission of the patient to the hospital for care." Co-Existing Principal Diagnosis: "when two or more diagnoses equally meet the criteria for principal diagnosis as determined by the circumstances of admission, diagnostic work up, and/or therapy provided, and the Alphabetic Index, Tabular List, or another coding guideline does not provide sequencing direction, any one of the diagnoses may be sequenced first." "When the physician has documented what appears to be a current diagnosis in the body of the record, but has not included the diagnosis in the final diagnostic statement, the physician should be asked whether the diagnosis should be added." (Source Coding [facility] 2 QTR90. p3-4) DOMO
== END 2020-06-13 20:43 | disposition home health service (06) | DRG 392 ==
LOC: ED 13:37 → 2N 13:37 → SUATTDRO 16:36 → 2N 18:14 → SUATTDRO 06-09 16:43 → 3W 06-10 21:53

== ENCOUNTER 2020-12-03 10:38 | Inpatient (IN) ==
--- NOTE | 2020-11-22 12:04 | PAT Medication Instructions ---
Medication Instructions Date of Service November 22, 2020 Home Medications Medication Instructions Recorded famotidine 20 mg tablet 20 mg PO BID 30 Days #60 tab 08/08/20 hydrocodone 5 mg-acetaminophen 325 1 tab PO Q6H PRN #40 tab 09/27/20 mg tablet lubiprostone 8 mcg capsule 8 mcg PO BID #60 cap 11/08/20 esomeprazole magnesium 40 mg 40 mg PO BID 30 Days #60 cap 11/15/20 capsule,delayed release pregabalin 75 mg capsule 75 mg PO BID #60 cap 11/15/20 clonazepam 1 mg tablet 1 mg PO BID docusate sodium 100 mg capsule 100 mg PO BID levomilnacipran 80 mg capsule,24 hr,extended release 80 mg PO QAM levothyroxine 88 mcg capsule 88 mcg PO QAM melatonin 10 mg tablet 10 mg PO HS potassium chloride 20 mEq tablet,extended release 20 meq PO BID spironolactone 25 mg tablet 25 mg PO BID trazodone 100 mg tablet 100 mg PO HS insulin glargine 100 unit/mL subcutaneous solution 20 unit SQ HS acetaminophen 500 mg capsule 1,500 mg PO Q6H PRN cholecalciferol (vitamin D3) 25 mcg (1,000 unit) capsule 25 mcg PO QAM furosemide 40 mg tablet 40 mg PO BID hydroxyzine HCl 25 mg tablet 50 mg PO TID PRN amitriptyline 25 mg PO HS cyanocobalamin (vitamin B-12) 1,000 mcg IM .Q3 MONTHS ondansetron HCl [Zofran] 4 mg PO Q8H PRN famotidine 20 mg tablet 20 mg PO BID hydrocodone 5 mg-acetaminophen 325 mg tablet 1 tab PO Q6H PRN lubiprostone 8 mcg capsule 8 mcg PO BID docusate sodium [Stool Softener] 100 mg PO QAM polyethylene glycol 3350 [Miralax] 17 g PO BID esomeprazole magnesium 40 mg capsule,delayed release 40 mg PO BID pregabalin 75 mg capsule 75 mg PO BID Continue as directed cyanocobalamin (vitamin B-12) 1,000 mcg IM .Q3 MONTHS DO NOT take the morning of surgery docusate sodium 100 mg capsule 100 mg PO BID potassium chloride 20 mEq tablet,extended release 20 meq PO BID spironolactone 25 mg tablet 25 mg PO BID cholecalciferol (vitamin D3) 25 mcg (1,000 unit) capsule 25 mcg PO QAM furosemide 40 mg tablet 40 mg PO BID hydroxyzine HCl 25 mg tablet 50 mg PO TID PRN lubiprostone 8 mcg capsule 8 mcg PO BID docusate sodium [Stool Softener] 100 mg PO QAM polyethylene glycol 3350 [Miralax] 17 g PO BID Take morning of surgery With a small sip of water, OTHERWISE NOTHING TO EAT OR DRINK AFTER MIDNIGHT: clonazepam 1 mg tablet 1 mg PO BID levomilnacipran 80 mg capsule,24 hr,extended release 80 mg PO QAM levothyroxine 88 mcg capsule 88 mcg PO QAM acetaminophen 500 mg capsule 1,500 mg PO Q6H PRN (okay to take up to 4 hours prior to surgery if needed) ondansetron HCl [Zofran] 4 mg PO Q8H PRN (if needed) famotidine 20 mg tablet 20 mg PO BID hydrocodone 5 mg-acetaminophen 325 mg tablet 1 tab PO Q6H PRN (okay to take up to 4 hours prior to surgery if needed) esomeprazole magnesium 40 mg capsule,delayed release 40 mg PO BID pregabalin 75 mg capsule 75 mg PO BID Take evening before surgery clonazepam 1 mg tablet 1 mg PO BID docusate sodium 100 mg capsule 100 mg PO BID melatonin 10 mg tablet 10 mg PO HS potassium chloride 20 mEq tablet,extended release 20 meq PO BID spironolactone 25 mg tablet 25 mg PO BID trazodone 100 mg tablet 100 mg PO HS insulin glargine 100 unit/mL subcutaneous solution 20 unit SQ HS acetaminophen 500 mg capsule 1,500 mg PO Q6H PRN (if needed) furosemide 40 mg tablet 40 mg PO BID hydroxyzine HCl 25 mg tablet 50 mg PO TID PRN (if needed) amitriptyline 25 mg PO HS ondansetron HCl [Zofran] 4 mg PO Q8H PRN (if needed) famotidine 20 mg tablet 20 mg PO BID hydrocodone 5 mg-acetaminophen 325 mg tablet 1 tab PO Q6H PRN (if needed) lubiprostone 8 mcg capsule 8 mcg PO BID polyethylene glycol 3350 [Miralax] 17 g PO BID esomeprazole magnesium 40 mg capsule,delayed release 40 mg PO BID pregabalin 75 mg capsule 75 mg PO BID Other Notes If you have any questions please call us at [phone] or [phone] or [phone] or [phone]
--- NOTE | 2020-11-26 11:25 | Anesthesiology Consultation ---
Date of Service November 26, 2020 Assessment & Plan (1) Encounter for pre-operative examination: COVID Status: As of 11/26 assessment, patient denies travel to endemic area, known exposure/sick contacts, or symptoms of COVID19. Patient instructed that they and their household members must follow strict social distancing guidelines, wear a mask in public and avoid travel/events/gatherings for 14 days prior to surgery. Preoperative COVID19 testing to be completed prior to surgery per surgeon's arrangements. Patient made aware to self-isolate as much as possible between COVID testing and surgery. Pt is fully vaccinated. [facility] AM DOS Chart Review Chart Review: Acceptable Risk for Surgery and Patient seen in Pre Admission Testing Teaching & Discussion Instructed NPO after midnight before surgery, except medications with 15 cc of water. Medication instructions provided according to the PAT guidelines. History Surgery Operation Date: 12/03/20 13:15 Proposed Procedures p Intrathecal Drug Administration System Revision - Isrrael Perez MD, FIPP Height/Weight Height: 5 ft Weight: 114.7 kg Allergies Allergy/AdvReac Type Severity Reaction Status Date / Time acetaminophen [From Percocet] Allergy Mild N/V Verified 11/14/20 13:21 adhesive tape Allergy Mild RED AND Verified 11/14/20 13:21 SORE butorphanol Allergy Mild N/V Verified 11/14/20 13:21 lubiprostone [From Amitiza] Allergy Mild Rash Verified 11/14/20 13:21 morphine Allergy Mild SWELLING Verified 11/14/20 13:21 oseltamivir [From Tamiflu] Allergy Mild N/V Verified 11/14/20 13:21 codeine Allergy Unknown SWELLING Verified 11/14/20 13:21 iodine Allergy Unknown Rash Verified 11/14/20 13:21 oxycodone Allergy Unknown AGITATION Verified 11/14/20 13:21 shellfish derived Allergy Unknown SWELLS Verified 11/14/20 13:21 Sulfa (Sulfonamide Allergy Unknown SWELLING Verified 11/14/20 13:21 Antibiotics) fluticasone Allergy swelling Verified 11/14/20 13:21 linaclotide [From Linzess] AdvReac starry eye Verified 11/14/20 13:21 Medications Home Medications Medication Instructions Recorded Confirmed Last Taken clonazepam 1 mg tablet 1 mg PO BID 10/11/19 11/14/20 06/07/20 AM DOSE docusate sodium 100 mg capsule 100 mg PO BID 10/11/19 11/14/20 06/07/20 AM DOSE levomilnacipran 80 mg capsule,24 80 mg PO QAM 10/11/19 11/14/20 06/07/20 hr,extended release levothyroxine 88 mcg capsule 88 mcg PO QAM 10/11/19 11/14/20 06/07/20 melatonin 10 mg tablet 10 mg PO HS 10/11/19 11/14/20 06/06/20 potassium chloride 20 mEq 20 meq PO BID 10/11/19 11/14/20 06/07/20 tablet,extended release AM DOSE spironolactone 25 mg tablet 25 mg PO BID 10/11/19 11/14/20 06/07/20 AM DOSE trazodone 100 mg tablet 100 mg PO HS tab 10/11/19 11/14/20 06/06/20 insulin glargine 100 unit/mL 20 unit SQ HS 12/04/19 11/14/20 06/06/20 subcutaneous solution acetaminophen 500 mg capsule 1,500 mg PO Q6H PRN cap 01/26/20 11/14/20 05/06/20 21:00 cholecalciferol (vitamin D3) 25 25 mcg PO QAM 01/26/20 11/14/20 06/07/20 mcg (1,000 unit) capsule furosemide 40 mg tablet 40 mg PO BID 01/26/20 11/14/20 06/07/20 AM DOSE hydroxyzine HCl 25 mg tablet 50 mg PO TID PRN 01/26/20 11/14/20 05/06/20 amitriptyline 25 mg PO HS 05/02/20 11/14/20 06/06/20 cyanocobalamin (vitamin B-12) 1,000 mcg IM .Q3 MONTHS 06/07/20 11/14/20 Unknown ondansetron HCl [Zofran] 4 mg PO Q8H PRN 06/07/20 11/14/20 Unknown famotidine 20 mg tablet 20 mg PO BID 30 Days #60 tab 08/08/20 11/14/20 Unknown hydrocodone 5 mg-acetaminophen 325 1 tab PO Q6H PRN #40 tab 09/27/20 11/14/20 Unknown mg tablet lubiprostone 8 mcg capsule 8 mcg PO BID #60 cap 11/08/20 11/14/20 Unknown docusate sodium [Stool Softener] 100 mg PO QAM 11/14/20 11/14/20 Unknown polyethylene glycol 3350 [Miralax] 17 g PO BID 11/14/20 11/14/20 Unknown esomeprazole magnesium 40 mg 40 mg PO BID 30 Days #60 cap 11/15/20 Unknown capsule,delayed release pregabalin 75 mg capsule 75 mg PO BID #60 cap 11/15/20 Unknown Past Medical History Medical History Anxiety disorder Arthritis Asthma Cervical postlaminectomy syndrome Chronic kidney disease F/U DR CUONG SARGENT COPD (chronic obstructive pulmonary disease) On 2L O2 chronically, does not use any inhalers DDD (degenerative disc disease) Dependence on continuous supplemental oxygen 2L via [place] Diabetes mellitus On insulin 20 units HS History of COVID-19 DX'D END 06/2020-FEVER, BODY ACHES, COUGH-NOT HOSPITALIZED-SYMPTOMS RESOLVED HTN (hypertension) Hyperlipidemia Nausea and vomiting Pt reports she has not had this for the past 4 months. Obesity Postlaminectomy syndrome of lumbosacral region Presence of intrathecal pump [facility] PAIN MGT-- DILAUDID/BUPIVACAINE Sleep apnea JUST OXYGEN CONT 2L/IN -- COULD NOT TOLERATE CPAP DUE TO CLAUSTROPHOBIA. Spinal stenosis of thoracolumbar region Stomach ulcer HX Exercise / Class Metabolic Activity III < 4 Walking/Shop/Light housework (Wears 2 L O2, denies any chest pain, denies SOB with ambulation with walker) Past Family History Family History Father Diabetes Stomach ulcer Cancer Hypertension Daughter Family history of reaction to anesthesia PONV Past Surgical History Surgical History H/O colonoscopy H/O neck surgery H/O: hysterectomy History of knee replacement, total LEFT AND RIGHT History of open reduction and internal fixation (ORIF) procedure RIGHT FOOT Hx laparoscopic cholecystectomy Hx of tonsillectomy Hx of total shoulder replacement RIGHT AND LEFT Nausea and vomiting after administration of anesthetic agent AND SLOW TO WAKE UP X 1 Previous back surgery Past Anesthesia History No Family Hx of Anesthesia Complications (other than father with PONV) PT REPORTS H/O SEVERE PONV AND "TROUBLE WAKING UP." Reviewed available records, no indication of post-operative issues such as reintubation or unplanned admission/ICU transfer. History of PONV No Hx of Motion Sickness and History of PONV Social History Smoking Status: Never smoker Do You Dip or Chew Tobacco: No Hx Alcohol Use: No Hx Substance Use: No substance use type: does not use Review of Systems Pt denies any recent chest pain, shortness of breath, cough, fever, URI, or uncontrolled acid reflux (just gets occ). +occ palpitations Physical Exam Vital Signs BP: 120/75 P: 69bpm SPO2: 100% on 2L O2 via [place] T: 97.9 F R: 16 ENMT Mouth: + small oral opening; no dental restorations, no chipped teeth and no loose teeth Thyromental Distance: > or= 3.5 Finger Breadths Mallampati Class: II Neck + short neck, + thick neck and + limited neck extension Respiratory normal respiratory effort, lungs clear to auscultation Cardiovascular Rate/Rhythm: regular rate and regular rhythm Heart Sounds: + murmur (I/ systolic) Extremities: + edema (chronic, at baseline) Testing Laboratory Results 11/26/20 11:51 11/26/20 11:51 Hemoglobin A1c 7.9 % (4.5-5.6) H 11/26/20 11:51 Urine Color Yellow 11/26/20 11:51 Urine Appearance Clear (Clear) 11/26/20 11:51 Urine pH 5.0 (4.5-7.5) 11/26/20 11:51 Ur Specific [place] 1.027 (1.000-1.030) 11/26/20 11:51 Urine Protein Negative (Negative) 11/26/20 11:51 Urine Glucose (UA) Trace (Negative) H 11/26/20 11:51 Urine Ketones Trace (Negative) H 11/26/20 11:51 Urine Nitrite Negative (Negative) 11/26/20 11:51 Ur Leukocyte Esterase 1+ (Negative) H 11/26/20 11:51 Urine WBC (Auto) 1-5 /hpf (0-5) 11/26/20 11:51 Urine RBC (Auto) 0-4 /hpf (0-4) 11/26/20 11:51 U Hyaline Cast (Auto) 5-10 /lpf (0-5) H 04/06/21 11:51 U Epithel Cells (Auto) 20-30 /lpf (0-5) H 11/26/20 11:51 Urine Bacteria (Auto) Negative (Negative) 11/26/20 11:51 Known CKD, Cr is slightly above baseline. Surgeon's office notified of elevated glucose/A1C. Electrocardiogram Date: 10/03/20 Normal sinus rhythm High QRS voltage may be normal variant or due to lve Cannot rule out Inferior infarct (cited on or before 29-AUG-2020) Abnormal ECG When compared with ECG of 29-AUG-2020 13:12, No significant change was found Inferior Q waves also noted on pre-op cardio clearance from 2008 per records ([facility]). Chest X-Ray Date: 06/07/20 FINDINGS: Cardiac silhouette is mildly enlarged, unchanged. There is no pneumothorax, pleural effusion, airspace consolidation or overt pulmonary edema. Mild chronic interstitial coarsening. Degenerative changes of the spine. Left shoulder total joint arthroplasty. IMPRESSION: No acute process.
[2020-11-26 13:06] LABS: Basophils # (auto) 0.03 K/uL (0-0.2); Basophils % (auto) 0.3 %; Eosinophils # (auto) 0.27 K/uL (0-0.5); Hematocrit (blood only) 34.9 % (37-47); Hemoglobin 11.1 g/dL (12.0-16.0); Immature Granulocytes # (auto) 0.01 K/uL (0.00-0.02); Immature Granulocytes % (auto) 0.1 %; Lymphocytes # (auto) 1.81 K/uL (1.2-3.4); Lymphocytes % (auto) 20.3 %; Mean Corpuscular Hemoglobin 29.1 pg (25-34); Mean Corpuscular Hgb Conc 31.8 g/dL (32-36); Mean Corpuscular Volume 91.6 fL (80-100); Mean Platelet Volume 10.3 fL (7.4-10.4); Monocytes # (auto) 0.52 K/uL (0.11-0.59); Monocytes % (auto) 5.8 %; Neutrophils # (auto) 6.29 K/uL (1.4-6.5); Neutrophils % (auto) 70.5 %; Platelet Count 243 K/uL (130-400); RDW Coefficient of Variation 13.5 % (11.5-14.5); RDW Standard Deviation 45.1 fL (36.4-46.3); Red Blood Count 3.81 M/uL (4.2-5.4); White Blood Count 8.93 K/uL (4.8-10.8)
[2020-11-26 13:12] LABS: BUN Creatinine Ratio 13.1 (10-20); Calcium 8.6 mg/dl (8.5-10.1); Creatinine Clr Calc Pharmacy 32.5 ml/min; Est GFR (African American) 35.5; Est GFR (Non-African American) 30.6; Potassium 4.3 mmol/L (3.5-5.1)
[2020-11-26 13:16] LABS: Appearance Urine Clear (Clear); Bacteria Urine Automated Negative (Negative); Bilirubin Urine Negative (Negative); Blood Urine Negative (Negative); Color Urine Yellow; Epithelial Cell Urine Auto 20-30 /lpf (0-5); Glucose Urine UA Trace (Negative); Ketones Urine Trace (Negative); Leukocyte Esterase Urine 1+ (Negative); Nitrite Urine Negative (Negative); Protein Urine Negative (Negative); RBC Urine Automated 0-4 /hpf (0-4); Specific Gravity Urine 1.027 (1.000-1.030); Urobilinogen Urine Negative (Negative)
[2020-11-27 06:10] LABS: Estimated Average Glucose 180 mg/dl; Hemoglobin A1C 7.9 % (4.5-5.6)
--- NOTE | 2020-12-02 16:07 | History & Physical Report ---
Date of Service December 02, 2020 Assessment & Plan (1) Chronic back pain: (2) Postlaminectomy syndrome of lumbosacral region: (3) Presence of intrathecal pump: (4) Obesity: (5) Diabetes mellitus: (6) Anxiety disorder: * Patient will be admitted to [facility] to undergo in trathecal pump and catheter revision/replacement due to malfunctioning intrathecal pump and poor pain control for treatment of her chronic intractable low back pain secondary to lumbar postlaminectomy syndrome. Intrathecal dose will be adjusted at the time of implantation due to the unlikelihood of patient receiving current expected dose. Patient will be kept overnight for monitoring purposes. The risks versus benefits of this procedure were discussed at length with the patient all of her questions were answered. She does elect to proceed with the procedure due to her inadequate pain control and poor quality of life. Admission and Anticipated Discharge Date Admission Date: 12/03/2020 Anticipated date of discharge: 12/04/20 History of Present Illness Chief Complaint: Intractable low back pain secondary to lumbar postlaminectomy syndrome Primary Care Provider: Ena Coreas MD Mrs. Rubalcava is an 80-year-old morbidly obese white female who is known to the pain service over the past 1 year. The patient transferred her intrathecal pump care from her prior physician in the [place] area to our office. She has had poor ongoing pain control with use of her intrathecal pump since her initial visit in our office. She had reported adequate pain control initially upon implantation of the pump. Investigation has revealed a concern over a malfunctioning catheter and it has been recommended that she undergo intrathecal pump revision/replacement with catheter revision. The patient underwent a catheter dye study with inability to aspirate off the catheter. Imaging of her thoracic spine had failed to reveal catheter abnormality at that level. She continues to have pain in the axial lumbar spine as her primary pain generator r ating her pain at a 3-8/10. Patient has difficulty performing simple ambulatory and ADL activities due to her poor pain control. Patient indicates that her pain is predominantly axial with minimal radicular component. Patient has a greater than 20-year history of chronic intractable axial low back pain with multiple surgical interventions of lumbar spine with laminectomy without hardware. Patient had previously failed multiple treatments including but not limited to physical therapy, prior surgeries, gabapentin, oral opiate therapy and acetaminophen. She was previously unable to recall prior lumbar spine injections completed prior to her surgical interventions. Plan of care discussed with Dr. Perze. Allergies Allergy/AdvReac Type Severity Reaction Status Date / Time acetaminophen [From Percocet] Allergy Mild N/V Verified 12/03/20 11:23 adhesive tape Allergy Mild RED AND Verified 12/03/20 11:23 SORE butorphanol Allergy Mild N/V Verified 12/03/20 11:23 lubiprostone [From Amitiza] Allergy Mild Rash Verified 12/03/20 11:23 morphine Allergy Mild SWELLING Verified 12/03/20 11:23 oseltamivir [From Tamiflu] Allergy Mild N/V Verified 12/03/20 11:23 codeine Allergy Unknown SWELLING Verified 12/03/20 11:23 iodine Allergy Unknown Rash Verified 12/03/20 11:23 oxycodone Allergy Unknown AGITATION Verified 12/03/20 11:23 shellfish derived Allergy Unknown SWELLS Verified 12/03/20 11:23 Sulfa (Sulfonamide Allergy Unknown SWELLING Verified 12/03/20 11:23 Antibiotics) fluticasone Allergy swelling Verified 12/03/20 11:23 linaclotide [From Linzess] AdvReac starry eye Verified 12/03/20 11:23 Home Medications Medication Instructions Recorded Confirmed Type clonazepam 1 mg tablet 1 mg PO BID 10/11/19 12/03/20 History docusate sodium 100 mg capsule 100 mg PO BID 10/11/19 12/03/20 History levomilnacipran 80 mg capsule,24 80 mg PO QAM 10/11/19 12/03/20 History hr,extended release levothyroxine 88 mcg capsule 88 mcg PO QAM 10/11/19 12/03/20 History melatonin 10 mg tablet 10 mg PO HS 10/11/19 12/03/20 History potassium chloride 20 mEq 20 meq PO BID 10/11/19 12/03/20 History tablet,extended release spironolactone 25 mg tablet 25 mg PO BID 10/11/19 12/03/20 History trazodone 100 mg tablet 100 mg PO HS tab 10/11/19 12/03/20 History insulin glargine 100 unit/mL 20 unit SQ HS 12/04/19 12/03/20 History subcutaneous solution acetaminophen 500 mg capsule 1,500 mg PO Q6H PRN cap 01/26/20 12/03/20 History cholecalciferol (vitamin D3) 25 25 mcg PO QAM 01/26/20 12/03/20 History mcg (1,000 unit) capsule furosemide 40 mg tablet 40 mg PO BID 01/26/20 12/03/20 History hydroxyzine HCl 25 mg tablet 50 mg PO TID PRN 01/26/20 12/03/20 History amitriptyline 25 mg PO HS 05/02/20 12/03/20 History cyanocobalamin (vitamin B-12) 1,000 mcg IM .Q3 MONTHS 06/07/20 12/03/20 History ondansetron HCl [Zofran] 4 mg PO Q8H PRN 06/07/20 12/03/20 History hydrocodone 5 mg-acetaminophen 325 1 tab PO Q6H PRN #40 tab 09/27/20 12/03/20 Rx mg tablet lubiprostone 8 mcg capsule 8 mcg PO BID #60 cap 11/08/20 12/03/20 Rx docusate sodium [Stool Softener] 100 mg PO QAM 11/14/20 12/03/20 History polyethylene glycol 3350 [Miralax] 17 g PO BID 11/14/20 12/03/20 History esomeprazole magnesium 40 mg 40 mg PO BID 30 Days #60 cap 11/15/20 12/03/20 Rx capsule,delayed release pregabalin 75 mg capsule 75 mg PO BID #60 cap 11/15/20 12/03/20 Rx Past Med/Surg History Medical History Anxiety disorder Arthritis Asthma Cervical postlaminectomy syndrome [facility] COPD (chronic obstructive pulmonary disease) On 2L O2 chronically, does not use any inhalers DDD (degenerative disc disease) Dependence on continuous supplemental oxygen 2L via [place] Diabetes mellitus On insulin 20 units HS History of COVID-19 DX'D END 06/2020-FEVER, BODY ACHES, COUGH-NOT HOSPITALIZED-SYMPTOMS RESOLVED HTN (hypertension) Hyperlipidemia Nausea and vomiting Pt reports she has not had this for the past 4 months. Obesity Postlaminectomy syndrome of lumbosacral region Presence of intrathecal pump [facility] PAIN MGT-- DILAUDID/BUPIVACAINE Sleep apnea JUST OXYGEN CONT 2L/IN -- COULD NOT TOLERATE CPAP DUE TO CLAUSTROPHOBIA. Spinal stenosis of thoracolumbar region Stomach ulcer HX Surgical History H/O colonoscopy H/O neck surgery H/O: hysterectomy History of knee replacement, total LEFT AND RIGHT History of open reduction and internal fixation (ORIF) procedure RIGHT FOOT Hx laparoscopic cholecystectomy Hx of tonsillectomy Hx of total shoulder replacement RIGHT AND LEFT Nausea and vomiting after administration of anesthetic agent AND SLOW TO WAKE UP X 1 Previous back surgery Family History Father Diabetes Stomach ulcer Cancer Hypertension Daughter Family history of reaction to anesthesia PONV Social History Smoking Status: Never smoker Second Hand Exposure: Yes (PARENTS SMOKED); Do You Dip or Chew Tobacco: No; Hx Alcohol Use: No Hx Substance Use: No Preferred Language: Maltese Communication Ability: Effective Visual Impairment: No Limitations Hearing Ability: Use of Hearing Aid 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 Beliefs That Will Affect Care: None marital status: Current Living Situation: Spouse current occupational status: retired Other Information That Helps Us Care for You: No Feels Safe at Home: Yes Safety Concerns: Feels Safe At This Time Assistive Devices: Glasses, Oxygen - Continuous and Walker Assistive Devices Comment: [place]-NO AIDS Review of Systems Review of Systems: Constitutional: Negative for fever, chills, sweats Eyes: Negative for eye pain, photophobia, drainage Ear, nose, mouth, throat: Negative for ear pain, nasal congestion, mouth lesions, change in voice Respiratory: Negative for wheezing, sputum production Cardiovascular: Negative for chest pain, palpitations, calf pain Gastrointestinal: Negative for abdominal pain, belching, bloating Genitourinary: Negative for dysuria, urinary incontinence, urinary urgency Musculoskeletal: Negative for deformities Integumentary: Negative for nail changes, skin yellowing, pruritus Neurological: Negative for abnormal speech, seizure type activity Physical Exam Physical Exam: General: Patient sitting quietly in exam room in no acute distress. Speech and thought process appropriate. Mood and affect appropriate. Cognition intact. Patient is morbidly obese and physically deconditioned. Head: Normocephalic and atraumatic. ENT: No evidence of nasal or oral mucosal lesions. Mucous membranes are moist. Eyes: Pupils equal round reactive to light. Neck: Supple without adenopathy and full range of motion. Chest: Nontender to palpation of the costosternal junction. Cardiac: Regular rate and rhythm with systolic murmur. Lungs: Clear to auscultation no wheeze or rhonchi. Abdomen: Pump present in left lower quadrant without evidence of edema, erythema or skin breakdown. Pump nonmobile. Soft and nondistended. Protuberant. Back/spine: Complete loss of lumbar lordosis. Well-healed midline surgical incision over the lower lumbar spine. Generally tender at the lumbosacral junction which is nonfocal. Limited range of motion all planes secondary to body habitus. Lower extremities: SLR negative bilaterally. Increased axial pain was appreciated with SLR maneuvering. Sensation intact. Pitting edema of the ankle and pretibial region bilaterally regular left-sided. There is some generalized erythema of the right pretibial region. Patient has scattered erythematous papular eruption of the bilateral right greater than left pretibial regions. Neurologic: Cranial nerves grossly intact. Ambulation via nonmotorized wheelchair. The patient was able to stand and transfer with minimal assistance in the room. (1) Obesity Body mass index: BMI 40.0-44.9 Obesity type: unspecified obesity type
[~2020-12-03 10:38] MED LIST: HYDROmorphone PAIN PUMP ITR SCH; LACTATED RINGER'S 1,000 ML IV SCH; ceFAZolin 2000MG 2,000 MG/15 ML SYR IV SCH
--- NOTE | 2020-12-03 12:44 | History & Physical Bridge Note ---
Date of Service December 03, 2020 History & Physical Bridge Note History & Physical Bridge Note Miriam Rubalcava is a 80-year-old female with a history of chronic pain with implanted intrathecal medication delivery system. She has lost the efficacy of the intrathecal infusion over last 1 year and work up to assess the integrity of the pump/catheter has demonstrated inability to aspirate via the catheter and possible disconnect Patient is scheduled today for exploration and revision of the entire system to restore the efficacy.. Patient's past medical history, surgical history, medication and allergy list has been reviewed and no changes noted since his last history and physical examination performed. Review of systems is negative for any cardiac, pulmonary, GI, , endocrine or acute neurological complaints other than what is listed in the HPI section. Physical exam: GENERAL: Patient appears her stated age. Speech and cognition is intact. Mood and affect is appropriate. Sensorium is clear. She is in no acute distress. HEAD: Normocephalic; atraumatic. EYES: Pupils are round, equal, and reactive to light. EOM intact. Mucous membranes moist and pink. No oral lesions noted. ENT: No external ear discharge or lesions. No rhinorrhea or epistaxis. No mucosal lesions. NECK: Full ROM. Trachea is midline. No thyromegaly. No cervical lymphadenopathy. Carotids without bruit. CARDIAC: Regular rate and rhythm. CHEST: Regular chest respiration and excursion. Lungs are clear to auscu ltation. ABDOMEN: No organomegaly appreciated. Bowel sounds are hypoactive. EXTREMITIES: Full ROM and +5 strength of bilateral lower extremities. Distal sensation and pulses intact bilaterally. BACK: Increased lumbar lordosis. NEURO: Cranial nerves II-XII grossly intact with no focal deficits noted. Deep tendon reflexes in the upper and the lower extremities are symmetrical. Sensation and motor strength testing is unremarkable. SKIN: No lesions, erythema, or rashes noted. ASSESSMENT: Nom functioning intrathecal medication delivery system. RECOMMENDATIONS: Revise, replace and reprogram intrathecal medication delivery system. History reviewed, examination performed, pertinent laboratory and imaging studies reviewed. No contraindications noted to proceeding with the proposed procedure. History reviewed, examination performed, pertinent laboratory and imaging studies reviewed. No contraindications noted to proceeding with the proposed procedure. Patient was advised that it may require revision and replacement of the entire system including the intrathecal portion of the catheter during this procedure. Potential risks including infection, nerve injury, bleeding, hematoma or seroma formation, persistent spinal fluid leak, additional surgical procedures to address these complications, postdural puncture headaches, as well as failure to achieve complete relief of preo perative symptoms after the procedure were discussed with the patient. Patient was advised that they would require routine refills of the pump for continuing therapy. Risks associated with anesthesia required to perform this procedure were reviewed. Alternatives to this procedure were discussed with the patient. Patient's questions were answered. Patient gave informed consent.
[2020-12-03] MEDS ORDERED: ONDANSETRON INJ 2 MG/ML 2 ML VIAL IV PRN ×2 (13:00→14:19)
[2020-12-03] MEDS ORDERED: NALOXONE HCL 0.4 MG/1 ML VIAL/CARP IV PRN (13:00)
[2020-12-03] MEDS ORDERED: MAGNESIUM CITRATE 296 ML/BTL PO PRN (13:00)
[2020-12-03] MEDS ORDERED: diphenhydrAMINE Capsule 25 MG CAP PO PRN (13:00)
[2020-12-03] MEDS ORDERED: NO NARCOTICS OR SEDATIVES SCH (13:00)
[2020-12-03] MEDS ORDERED: LIDOCAINE/EPINE 2% 1:100,000 20ML ONE (13:36)
[2020-12-03] MEDS ORDERED: IOPAMIDOL INJ 61% 15 ML VIAL ONE (13:36)
[2020-12-03] MEDS ORDERED: LIDOCAINE HCL 2% 2 ML VIAL/AMP(20MG/ML) INFIL ONE (13:37)
[2020-12-03] MEDS ORDERED: PROPOFOL IV EMULSION 10 MG/ML 20 ML VIAL IV ONE (13:37)
[2020-12-03] MEDS ORDERED: ONDANSETRON INJ 2 MG/ML 2 ML VIAL ONE (13:37)
[2020-12-03] MEDS ORDERED: DEXAMETHASONE SOD INJ 4 MG/ML VIAL ONE (13:37)
[2020-12-03] MEDS ORDERED: fentaNYL citrate 100 MCG/2 ML VIAL ONE (13:38)
[2020-12-03] MEDS ORDERED: EPINEPHrine INJ 1 MG/ML AMP ONE ×2 (13:58→14:00)
[2020-12-03] MEDS ORDERED: BUPIVACAINE 0.25% 30 ML VIAL ONE (13:58)
[2020-12-03] MEDS ORDERED: BACITRACIN INJ 50,000 UNIT VIAL ONE ×2 (13:59→14:39)
[2020-12-03] MEDS ORDERED: ATROPINE SULFATE 0.1 MG/ML 10ML SYR IV PRN (14:19)
[2020-12-03] MEDS ORDERED: ePHEDrine sulfate 50 MG/ML AMP IV PRN (14:19)
[2020-12-03] MEDS ORDERED: ePHEDrine sulfate 50 MG/ML AMP ONE (14:39)
[2020-12-03] MEDS ORDERED: PHENYLEPHRINE 100MCG/ML 5ML SYR ONE (14:39)
[2020-12-03] MEDS ORDERED: LARYING-O-JET KIT (LTA) ONE (14:39)
[2020-12-03] MEDS ORDERED: SUCCINYLCHOLINE 100MG/5ML SYR IV ONE (14:39)
[2020-12-03] MEDS ORDERED: SURGICEL ABSORB HEMOSTAT 2IN X 14IN TOP ONE (16:06)
--- NOTE | 2020-12-03 16:44 | Operative Report ---
Post Operative Report Pre & Post Diagnosis Operation Date: 12/03/20 12:00 Pre-Op Diagnosis: Intrathecal Catheter Fracture and Pump Malfunction Post-Op Diagnosis: Intrathecal Catheter Fracture and Pump Malfunction I identified the patient and participated in the time-out.: Yes Procedure Operation Date: 12/03/20 12:00 Actual Procedures 1. Intrathecal Drug Administration pump replacement. 2. Insertion of new intrathecal catheter. 3. Irrigation and revision of the pump pocket. 4. Reprograming of intrathecal pump. 5. Ligation of existing intrathecal catheter. Surgeon Isrrael Perez MD, [facility] Sander Setter Victoria Ramos D.O. Estimated Blood Loss 20 Findings Consistent with Post-Op Diagnosis 1. Non functioning intrathecal catheter. 2. Evidence of inflammation and granulation in the pump pocket. Specimens Wound gram stain and cultures of the pump pocket site. Drains None Anesthesia Type General Complications none Disposition Accompanied Patient To Recovery: No Disposition: Recovery Room Description of Procedure INTRATHECAL PUMP REPLACEMENT PROCEDURE PERFORMED: 1. Intrathecal Drug Administration pump replacement. 2. Insertion of new intrathecal catheter. 3. Irrigation and revision of the pump pocket. 4. Reprograming of intrathecal pump. 5. Ligation of existing intrathecal catheter. PREOPERATIVE DIAGNOSIS: Non functioning intrathecal pump system POSTOPERATIVE DIAGNOSIS: 1. 1 Same. 2. Non functioning intrathecal catheter. 3. Evidence of inflammation and granulation in the pump pocket. COMPLICATIONS: None. SURGEON: Dr. Waldo Perez. ANESTHESIA: General/ETT. MATERIAL FORWARDED TO THE LAB: Explanted pump. EBL: 20 ml IMPLANTED PUMP SIZE: 40 mL. MEDICATIONS PLACED IN THE PUMP: Hydromorphone 2 mg/ml. DAILY DOSE: 0.25 mg/day (Reduced form 1.68 mg/day) CATHETER: Plasmon Ascenda 8780 CATHETER LENGTH 114.3 cm PUMP SITE: Lower quadrant of abdomen. INDICATIONS: The patient had an end of life pump with less than 1 month prior to system failure, thus requiring replacement. The patient was explained the risks, benefits, alternatives of the procedure and agreed to proceed as above. Informed consent was obtained and witnessed. A time out was performed after the patient was brought into the Operating Room. Antibiotics were given. The patient was then induced with general anesthesia without complications and was placed in the supine. The skin was prepped with Hibiclens and DuraPrep and draped in sterile fashion. The existing pump was identified and using a scalpel, electro cautery, and blunt dissection, the existing pump was exposed. The four retaining sutures were removed and the old pump was explanted. The catheter was disconnected from the old pump. CSF could not be aspirated. Using fluroscopy, the catheter was traced to it insertion site at T12/L1. It was decided to ligate the current catherter at the pump pocket site and insert a new catheter at this time. Using biplanar fluoroscopy an 14-gauge spinal needle was used to gain access to the intrathecal sac at L3/L4 interspace. Clear free cerebral spinal fluid flow was noted without any blood. Medtronic intrathecal catheter was passed through the needle under fluoroscopic guidance and the tip was positioned at mid T9 level. Stylet was removed and free CSF flow was aspirated. Using a scalpel, 1-1/2 inch midline incision was made surrounding the intrathecal needle. Hemostasis was achieved using electro cautery. The epidural catheter was secured to the dorso-lumbar fascia with 2 purse string 0-0 silk ties. Then the spinal needle was removed and a Brisk[employer] butterfly anchor to secure the catheter to the underlying supraspinous ligament was utilized to secure the catheter. Free CSF flow from the intrathecal catheter after anchoring of the catheter to the fascia. A passer was used to transfer the intrathecal pump catheter underneath the skin and subcutaneous tissues through to the pocket incision in a 2 step manner and attached to the pump with the extension connected to the catheter. Aspiration of the intrathecal catheter revealed free CSF flow. The suture-less connector was connected to the end the intrathecal pump and aspiration from of the end of the catheter was free-flowing. It was then connected to the intrathecal pump using the connecting device. Spine wound was irrigated with 3 bulb syringes full of sterile normal saline with bacitracin. The pump pocket was irrigated with Pulsavac with 1 L of saline containing bacitracin. Hemostasis was achieved. The intrathecal pump was filled was rinsed and filled with hydromorphone 2 mg/ml per protocol. The intrathecal pump was anchored in the pocket with 4-0 Prolene sutures. No complications were noted after the intrathecal pump was placed inside the pocket. Both wounds were irrigated with bacitracin-containing normal saline. Both wounds were closed in similar fashion using continuous 0 antibiotic-coated stratafix suture for deeper layer and running 3-0 V antibiotic-coated stratafix suture for subcuticular layer. Prineo to the skin. 4 x 4 gauze and pressure dressing was applied to both sites. The small incision in the waist for the catheter transfer was closed using staple. Abdominal binder was placed. No complications were noted throughout the procedure. The patient tolerated the procedure and general anesthesia without obvious complications.. Patient was allowed to emerge from anesthesia at the end of the procedure and transferred back to the stretcher. Patient was transported to the recovery room in stable condition. The patient will follow up with our clinic within 7 days for a wound check and then plan to have the ginny removed at day 14. The patient will follow up at [facility] pain clinic within 7 days for a wound check and then plan to have the ginny removed at day 14. I attest to the content of the Intraoperative Record and any orders documented therein. Any exceptions are noted below.
[2020-12-03] MEDS: fentaNYL citrate 100 MCG/2 ML VIAL IV PRN ×4 (16:45→17:00)
[2020-12-03] MEDS: HYDROmorphone INJ 1 MG/ML SYRINGE IV PRN ×7 (17:06→17:41)
[2020-12-03] MEDS ORDERED: HYDROmorphone INJ 1 MG/ML SYRINGE ONE ×2 (17:06→17:29)
--- NOTE | 2020-12-03 18:14 | Anesthesiology Progress Note ---
Date of Service December 03, 2020 Anesthesia Post Procedure Vital Signs Vital Signs: Temp Pulse Pulse Resp BP BP Pulse Ox 12/03/20 18:05 36.3 C L 71 14 137/66 99 12/03/20 17:55 36.3 C L 73 14 130/64 99 12/03/20 17:45 72 15 134/75 97 12/03/20 17:35 72 15 138/62 98 12/03/20 17:25 73 14 138/70 99 12/03/20 17:15 71 16 124/60 99 12/03/20 17:05 66 16 138/86 98 12/03/20 16:55 71 16 120/48 L 100 12/03/20 16:45 70 14 142/50 H 95 12/03/20 16:38 36.1 C L 82 14 136/63 99 12/03/20 11:32 36.8 C 77 18 117/61 97 Pain Intensity Generalized: Pain Intensity: 9 Back: Pain Intensity: 10 Transfer of Care Handoff Completed per policy Notes Mental Status: alert / awake / arousable and participated in evaluation Patient Amnestic to Procedure: Yes Nausea / Vomiting: adequately controlled Pain: improving with treatment Airway Patency, RR, SpO2: stable & adequate BP & HR: stable & adequate Hydration State: stable & adequate Anesthetic Complications: no major complications apparent and Pt Satisfied with anesthetic care
[2020-12-03] MEDS: DOCUSATE SODIUM 100 MG CAP PO SCH (21:07)
[2020-12-03] MEDS: HYDROCODONE/ACETAMOPHEN 5/325MG TAB PO PRN (21:13)
[2020-12-03] MEDS ORDERED: ceFAZolin 2000MG 2,000 MG/15 ML SYR IV ONE (22:00)
[2020-12-03] MEDS: HYDROmorphone INJ 0.5 MG/0.5 ML SYR IV PRN (22:57)
[2020-12-04] MEDS: HYDROCODONE/ACETAMOPHEN 5/325MG TAB PO PRN ×2 (04:36→10:59)
[2020-12-04] MEDS: HYDROmorphone INJ 0.5 MG/0.5 ML SYR IV PRN ×7 (06:25→20:48)
[2020-12-04] MEDS: DOCUSATE SODIUM 100 MG CAP PO SCH ×3 (08:09→22:31)
--- NOTE | 2020-12-04 09:06 | Pain Management Progress Note ---
Date of Service December 04, 2020 Assessment & Plan (1) Chronic back pain: (2) Postlaminectomy syndrome of lumbosacral region: (3) Presence of intrathecal pump: * Intrathecal pump was increased by 25% today. She is now receiving Dilaudid 0.3125mg/day. * Pump refill scheduled 04/01/21 at 1300. * Wound checks scheduled for 12/10/20 at 1415 and 12/17/20 at 1400. * Continue to utilize hydrocodone 5/325 every 6 hours as needed and Dilaudid 0.5 mg every 2 hours if needed. * This morning the patient was not feeling well enough for discharge. We will call and check in with the nurse this afternoon to see if she is noticing any improvement in preparation for discharge. If not improved, I will check on the patient tomorrow for likely another pump dosage increase. Admission and Anticipated Discharge Date Admission Date: December 03, 2020 Subjective Mrs. Rubalcava is an 80 year old female that is known to the Pain Service with lumbar post-laminectomy syndrome that required the implantation of an intrathecal pump and catheter delivery system implantation. The intrathecal pump did contain Dilaudid and Bupivacaine. With the intrathecal pump she was reporting adequate pain relief. Over the last year or so she has not had adequate pain relief despite multiple dosage increases. Unable to aspirate during catheter dye study. Physical Exam Physical Exam: GENERAL: This is a morbidly obese 80 year old female. Does appear in moderate pain with positional changes. HEAD/FACE: Normocephalic and atraumatic. EYES: No drainage or conjunctival injection. ENT: Nose without bleeding or discharge. Oral mucosa moist. NECK: Full ROM without apparent pain. No swelling or masses noted. RESPIRATORY: Patient with unlabored breathing. No signs of respiratory distress. CHEST/AXILLA: Chest movement symmetrical. No deformities noted. ABDOMEN: Aquacel bandage on the left lower abdomen. No breakthrough bleeding. No surrounding erythema. BACK: There is a Prineo bandage in place. Dry dressing was changed. SKIN: [place], warm and dry. No rash noted. MS/EXTREMITY: No swelling, no deformities.= NEURO: Alert and appears oriented. Speech is fluent. Cranial Nerves are grossly intact. PSYCH: Patient is moaning in the hospital chair.
[2020-12-04] MEDS ORDERED: PROMETHAZINE HCL 12.5 MG in SODIUM CHLORIDE 0.9% 50 ML IV PRN (09:50)
--- NOTE | 2020-12-04 14:44 | Hospitalist Consultation ---
Date of Consultation December 04, 2020 Assessment & Plan (1) Presence of intrathecal pump: Impression: This is an 80-year-old female that had a pain pump installed at [facility]. She then transferred care to the [facility] physician group pain clinic and has followed there. She has complained of increasing pain and was seen in the outpatient setting. It was identified that the pain pump need exploration. The pump was found to have a fractured catheter. The patient was taken to the operating theater and the catheter was cut close to the pump and ligated. A new catheter was then threaded under guidance fluoroscopy and a new pump was inserted. The patient is admitted to the telemetry [place] for further evaluation and management secondary to multiple comorbidities. Recommendations: 1. Intractable pain: Patient's previous pump was with Dilaudid and bupivacaine. Newly inserted pump is with Dilaudid only. Pain management is following and increased output of Dilaudid. Patient is also receiving 0.5 mg of IV Dilaudid IV push as well as [place] 5/325 mg for breakthrough pain. This has not been adequate to control pain for patient. She was given a separate 1 mg Dilaudid IV push and started on her outpatient Lyrica (pregabalin) 75 mg p.o. twice daily. She will receive her first dose at 2100 this evening. Patient will be continued on the telemetry unit secondary to narcotic adjustment and respiratory depression. 2. Nausea vomiting: Patient had prolonged QTC so Zofran was stopped and patient was given 12.5 mg of IV Phenergan. With pain management her nausea was better controlled. She had no actual vomiting but had some "dry heaves" earlier today. I revisited the patient late afternoon and she reported that the dry heaves were no longer an issue. Continue to monitor. Advance diet per pain management 3. Prolonged QTC: Patient had previous EKG in August 2019 with prolonged QTC at 700 ms. All of her follow-up EKGs had a QTC of approximately 470 ms. Initial EKG this morning showed prolonged QTC in the 700 ms range. At the end of the day, repeat EKG showed a normalized QTC. Patient does have a right bundle branch block. She remained on telemetry unit but can transfer from surgical telemetry to medical telemetry. 4. COPD: No tobacco abuse history. No other pulmonary disease. Patient is a lifelong non-smoker. Patient is on chronic supplemental oxygen at 2 L/min via nasal cannula. She receives the same dose at night. I could not find any pulmonary function testing. I would surmise of the COPD diagnosis. No broncho dilators were ordered as an outpatient. Would recommend duo nebs if needed. Continue diuresis with furosemide 40 mg p.o. twice daily to avoid pulmonary edema. 5. Sleep apnea, nocturnal hypoxia: Patient states that she sleeps with 2 pillows. She states that she uses chronic oxygen at 2 L/min via nasal cannula and that she does not have a CPAP or BiPAP machine. Based on body habitus, would recommend outpatient polysomnography exam with titration. 6. GERD: Continue pantoprazole. Patient has no complaints of midepigastric pain or heartburn 7. Hypertension: Blood pressure has been fairly stable. Continue with d iuretics including furosemide and spironolactone. Titrate supplemental oxygen to contain SaO2 between 88 and 92%. 8. Chronic kidney disease: Follow strict I's and O's. Patient with some chronic disease. Follow serial labs 9. Diabetes mellitus type 2: Random glucose 271 mg/Maykel. Hemoglobin A1c 7.9%. Home meds include Lantus. This will be continued as an inpatient. We will also add NovoLog sliding scale insulin and glycemic consult for management of sugars. Diabetic diet Thank you for including us in the care of this patient. We will continue to follow along with you due to multiple comorbidities. Once pain is controlled, patient could be discharged home from a medical perspective. Please refer to Dr. Sanford's addendum for further recommendations and corrections. (2) COPD (chronic obstructive pulmonary disease): (3) Postlaminectomy syndrome of lumbosacral region: (4) Sleep apnea: (5) GERD (gastroesophageal reflux disease): (6) Dependence on continuous supplemental oxygen: (7) Hyperlipidemia: (8) HTN (hypertension): (9) Diabetes mellitus: (10) Chronic kidney disease: (11) Thyroid disease: (12) IBS (irritable bowel syndrome): (13) Restless legs syndrome (RLS): (14) DVT prophylaxis: Supervising Physician Co-Signing Physician Notes Patient seen and examined with Bunny JARAMILLO. I agree with his exam findings, review of systems, assessment and plan. I personally reviewed the lab work and imaging as well. chronic intractable pain, defer to pain management, pump placed chronic issues: COPD, GERD, HTN, CKD, DM type II will continue home regimen, check labs in the AM can likely sign off tomorrow History of Present Illness Attending Physician: Isrrael Perez MD, [facility] History of Present Illness Attending: Dr. Sanford This is an 80-year-old female that is followed with the pain clinic f or approximately the past year. She has a past medical history including hypothyroidism, chronic constipation, GERD, chronic nausea, dyspepsia, irritable bowel syndrome, restless leg syndrome, chronic back pain with radiculopathy, idiopathic peripheral neuropathy, anxiety, COPD, chronic respiratory failure dependent on supplemental oxygen at 2 L/min by nasal cannula, obstructive sleep apnea, obesity, hyperlipidemia, hypertension, diabetes mellitus, chronic kidney disease, degenerative disc disease. She has been followed at the outpatient clinic and has had no relief of pain. Pain pump previously inserted in [place] and program to instill Dilaudid and bupivacaine. Catheter found to have fracture and patient was brought in for elective replacement of pain pump and repositioning of catheter. Patient was admitted to the telemetry floor secondary to risk of respiratory failure. She was seen by the pain clinic staff this morning and her Dilaudid distribution amount from the pain pump was increased. In spite of this, she continues to have intractable pain resulting in significant anxiety and labile emotions. She has been receiving her breakthrough pain medication with IV Dilaudid and [place] with limited effect. No other outpatient medications were initiated with admission. She is not on any long-term steroids. She did have some nausea and vomiting this morning. That was corrected with Phenergan 12.5 mg p.o. Aside from nausea, dry heaves, pain patient has no acute complaints. She denies fever, chills, sweats, rigors. She has no diarrhea. She has no difficulty with micturition. Patient is a lifelong non-smoker. She does not partake of alcohol products. She has no history with illicit substances. Allergies Allergy/AdvReac Type Severity Reaction Status Date / Time codeine Allergy Intermediate SWELLING Verified 12/03/20 13:14 fluticasone Allergy Intermediate swelling Verified 12/03/20 13:14 iodine Allergy Intermediate Rash Verified 12/03/20 13:14 shellfish derived Allergy Intermediate SWELLS Verified 12/03/20 13:14 Sulfa (Sulfonamide Allergy Intermediate SWELLING Verified 12/03/20 13:14 Antibiotics) acetaminophen [From Percocet] Allergy Mild N/V Verified 12/03/20 11:23 adhesive tape Allergy Mild RED AND Verified 12/03/20 11:23 SORE butorphanol Allergy Mild N/V Verified 12/03/20 11:23 lubiprostone [From Amitiza] Allergy Mild Rash Verified 12/03/20 11:23 morphine Allergy Mild SWELLING Verified 12/03/20 11:23 oseltamivir [From Tamiflu] Allergy Mild N/V Verified 12/03/20 11:23 linaclotide [From Linzess] AdvReac Intermediate starry eye Verified 12/03/20 13:14 oxycodone AdvReac Mild AGITATION Verified 12/03/20 13:14 Home Medications Medication Instructions Recorded Confirmed Type clonazepam 1 mg tablet 1 mg PO BID 10/11/19 12/03/20 History docusate sodium 100 mg capsule 100 mg PO BID 10/11/19 12/03/20 History levomilnacipran 80 mg capsule,24 80 mg PO QAM 10/11/19 12/03/20 History hr,extended release levothyroxine 88 mcg capsule 88 mcg PO QAM 10/11/19 12/03/20 History melatonin 10 mg tablet 10 mg PO HS 10/11/19 12/03/20 History potassium chloride 20 mEq 20 meq PO BID 10/11/19 12/03/20 History tablet,extended release spironolactone 25 mg tablet 25 mg PO BID 10/11/19 12/03/20 History trazodone 100 mg tablet 100 mg PO HS tab 10/11/19 12/03/20 History insulin glargine 100 unit/mL 20 unit SQ HS 12/04/19 12/03/20 History subcutaneous solution acetaminophen 500 mg capsule 1,500 mg PO Q6H PRN cap 01/26/20 12/03/20 History cholecalciferol (vitamin D3) 25 25 mcg PO QAM 01/26/20 12/03/20 History mcg (1,000 unit) capsule furosemide 40 mg tablet 40 mg PO BID 01/26/20 12/03/20 History hydroxyzine HCl 25 mg tablet 50 mg PO TID PRN 01/26/20 12/03/20 History amitriptyline 25 mg PO HS 05/02/20 12/03/20 History cyanocobalamin (vitamin B-12) 1,000 mcg IM .Q3 MONTHS 06/07/20 12/03/20 History ondansetron HCl [Zofran] 4 mg PO Q8H PRN 06/07/20 12/03/20 History hydrocodone 5 mg-acetaminophen 325 1 tab PO Q6H PRN #40 tab 09/27/20 12/03/20 Rx mg tablet lubiprostone 8 mcg capsule 8 mcg PO BID #60 cap 11/08/20 12/03/20 Rx docusate sodium [Stool Softener] 100 mg PO QAM 11/14/20 12/03/20 History polyethylene glycol 3350 [Miralax] 17 g PO BID 11/14/20 12/03/20 History esomeprazole magnesium 40 mg 40 mg PO BID 30 Days #60 cap 11/15/20 12/03/20 Rx capsule,delayed release pregabalin 75 mg capsule 75 mg PO BID #60 cap 11/15/20 12/03/20 Rx Patient History Medical History (Updated 12/05/20 @ 09:05 by Nafisa Welch PA-C) Anxiety disorder Arthritis Asthma Cervical postlaminectomy syndrome Chronic [facility] COPD (chronic obstructive pulmonary disease) On 2L O2 chronically, does not use any inhalers DDD (degenerative disc disease) Dependence on continuous supplemental oxygen 2L via NC Diabetes mellitus On insulin 20 units HS History of COVID-19 DX'D END 06/2020-FEVER, BODY ACHES, COUGH-NOT HOSPITALIZED-SYMPTOMS RESOLVED HTN (hypertension) Hyperlipidemia Nausea and vomiting Pt reports she has not had this for the past 4 months. Obesity Postlaminectomy syndrome of lumbosacral region Presence of intrathecal pump [facility] PAIN MGT-- DILAUDID Sleep apnea JUST OXYGEN CONT 2L/IN -- COULD NOT TOLERATE CPAP DUE TO CLAUSTROPHOBIA. Spinal stenosis of thoracolumbar region Stomach ulcer HX Surgical History H/O colonoscopy H/O neck surgery H/O: hysterectomy History of knee replacement, total LEFT AND RIGHT History of open reduction and internal fixation (ORIF) procedure RIGHT FOOT Hx laparoscopic cholecystectomy Hx of tonsillectomy Hx of total shoulder replacement RIGHT AND LEFT Nausea and vomiting after administration of anesthetic agent AND SLOW TO WAKE UP X 1 Previous back surgery Family History Father Diabetes Stomach ulcer Cancer Hypertension Daughter Family history of reaction to anesthesia PONV Social History Smoking Status: Never smoker Second Hand Exposure: Yes (PARENTS SMOKED); Hx Alcohol Use: No Hx Substance Use: No Preferred Language: Romansh Communication Ability: Effective Visual Impairment: No Limitations Hearing Ability: Use of Hearing Aid Helpdesk Analyst Required: No Beliefs That Will Affect Care: None marital status: Current Living Situation: Spouse current occupational status: retired Feels Safe at Home: Yes Assistive Devices: Oxygen - Continuous and Walker Review of Systems Review of Systems: All systems reviewed & are unremarkable except as noted in HPI & below Physical Exam Physical Exam: GENERAL : Significant acute distress secondary to intractable pain EYES: No icterus, gaze conjugate. Pupils equal round and reactive to light NOSE: No evidence of epistaxis MOUTH: No lesions or candidiasis. Mucosa is dry. Upper dentures are not in place NECK: Supple LUNGS: CTA B/L, no wheezes, rales or rhonchi HEART: Regular, tachycardic ABDOMEN: Soft, NT, ND, BS Present. Dressing intact and dry EXTREMITIES: Trace LE edema, pedal pulses intact NEURO: A&OX3. Good historian. Results & Data Results & Data ([facility]) Vital Signs (Past 12 Hours) Vital Signs Temp Pulse Pulse Pulse Resp BP Pulse Ox 12/04/20 13:01 12/04/20 11:46 36.5 C 66 20 114/66 12/04/20 08:00 81 12/04/20 07:25 36.8 C 88 20 114/67 99 12/04/20 03:41 70 18 133/80 99 12/04/20 03:00 36.6 C Pulse Ox 12/04/20 13:01 96 12/04/20 11:46 12/04/20 08:00 12/04/20 07:25 12/04/20 03:41 12/04/20 03:00 Laboratory Results 11/26/20 11:51 11/26/20 11:51 Diagnostic Findings Guidance fluoroscopy during procedure. Otherwise no diagnostic imaging this admission PG Care Time/CCT Total # of Minutes Spent Total Time Spent with Patient: Total time spent is greater than 50% in coordination of care (as documented) at patient's floor/unit and/or counseling patient: 60 Coding Level of Care Code 80862 Inpt Consult Level 5 Diagnoses Presence of intrathecal pump Z97.8 COPD (chronic obstructive pulmonary disease) J44.9 Postlaminectomy syndrome of lumbosacral region M96.1 Sleep apnea G47.30 GERD (gastroesophageal reflux disease) K21.9 Dependence on continuous supplemental oxygen Z99.81 Hyperlipidemia E78.5 HTN (hypertension) I10 Diabetes mellitus E11.9 Chronic kidney disease N18.9 Thyroid disease E07.9 IBS (irritable bowel syndrome) K58.9 Restless legs syndrome (RLS) G25.81 DVT prophylaxis Z29.9 Time Spent (min) 60
[2020-12-04] MEDS: HYDROCODONE/ACETAMINOPHEN 7.5/325MG TAB PO PRN ×2 (15:41→21:52)
[2020-12-04] MEDS ORDERED: HYDROmorphone INJ 1 MG/ML SYRINGE IV STA (20:01)
[2020-12-04] MEDS: PREGABALIN 75 MG CAP PO SCH (20:12)
[2020-12-04] MEDS ORDERED: CYANOCOBALAMIN 1000 MCG/ML VIAL IM SCH (20:40)
[2020-12-04] MEDS ORDERED: hydrOXYzine HCl 25 MG TAB PO PRN (20:40)
[2020-12-04] MEDS ORDERED: ONDANSETRON 4 MG OD TAB PO PRN (20:50)
[2020-12-04] MEDS ORDERED: ACETAMINOPHEN 325 MG TAB PO PRN (21:15)
[2020-12-04] MEDS: SPIRONOLACTONE 25 MG TAB PO SCH (22:29)
[2020-12-04] MEDS: LUBIPROSTONE 8 MCG CAP PO SCH (22:31)
[2020-12-04] MEDS: POLYETHYLENE (MIRALAX) 17 GM PACK PO SCH (22:31)
[2020-12-04] MEDS: AMITRIPTYLINE HCL 25 MG TAB PO SCH (22:32)
[2020-12-04] MEDS: traZODone HCL 100 MG TAB PO SCH (22:32)
[2020-12-04] MEDS: POTASSIUM CHLORIDE CRTAB 20 MEQ TABCR PO SCH (22:33)
[2020-12-04] MEDS: clonazePAM 1 MG TAB PO SCH (22:33)
[2020-12-04] MEDS: INSULIN GLARGINE SOLOSTAR 100 UNITS/ML 3 ML PEN SQ SCH (22:33)
[2020-12-04] MEDS: FUROSEMIDE 40 MG TAB PO SCH (22:33)
[2020-12-04] MEDS: MELATONIN 3 MG TAB PO SCH (22:34)
[2020-12-04] MEDS: PANTOprazole 40 MG TAB PO SCH (22:34)
[2020-12-04] MEDS ORDERED: DEXTROSE 50% 50 ML SYRINGE IV PRN (23:35)
[2020-12-04] MEDS ORDERED: GLUCOSE 10 TABS/TUBE PO PRN (23:35)
[2020-12-04] MEDS ORDERED: CARBOHYDRATES FOR HYPOGLYCEMIA PO PRN (23:35)
[2020-12-04] MEDS ORDERED: GLUCOSE 40% GEL 15 GM TUBE PO PRN (23:35)
[2020-12-04] MEDS ORDERED: GLUCAGON FOR INJ 1 MG VIAL SQ PRN (23:35)
[2020-12-05] MEDS ORDERED: PHARMACY GLYCEMIC MGMT CONSULT PRN (00:06)
[2020-12-05] MEDS: HYDROmorphone INJ 0.5 MG/0.5 ML SYR IV PRN ×7 (03:51→23:01)
[2020-12-05] MEDS ORDERED: INSULIN ASPART 100 UNITS/ML 3 ML PEN SC SCH (04:00)
[2020-12-05] MEDS: HYDROCODONE/ACETAMINOPHEN 7.5/325MG TAB PO PRN ×2 (05:55→10:27)
[2020-12-05] MEDS: LEVOTHYROXINE SODIUM 88 MCG TABLET PO SCH (05:58)
--- NOTE | 2020-12-05 06:09 | Electrocardiogram Report ---
Test Reason : Blood Pressure : / mmHG Vent. Rate : 090 BPM Atrial Rate : 090 BPM P-R Int : 214 ms QRS Dur : 086 ms QT Int : 368 ms P-R-T Axes : 017 031 034 degrees QTc Int : 451 ms Sinus rhythm with 1st degree A-V block Nonspecific T wave abnormality Abnormal ECG When compared with ECG of 07-JUN-2020 13:49, Nonspecific T wave abnormality has replaced inverted T waves in Inferior leads Confirmed by Talib Macdonald ([id number]) on 12/05/2020 6:09:31 AM Referred By: Isrrael Perez Confirmed By:Talib Macdonald
[2020-12-05] MEDS: CHOLECALCIFEROL 1,000 UNITS 25 MCG TAB PO SCH (09:00)
[2020-12-05] MEDS: POTASSIUM CHLORIDE CRTAB 20 MEQ TABCR PO SCH ×2 (09:00→21:06)
[2020-12-05] MEDS: LUBIPROSTONE 8 MCG CAP PO SCH ×2 (09:00→21:04)
[2020-12-05] MEDS: PANTOprazole 40 MG TAB PO SCH ×2 (09:00→21:07)
[2020-12-05] MEDS: FUROSEMIDE 40 MG TAB PO SCH ×2 (09:00→21:06)
[2020-12-05] MEDS ORDERED: DOCUSATE SODIUM 100 MG CAP PO SCH (09:00)
[2020-12-05] MEDS: SPIRONOLACTONE 25 MG TAB PO SCH ×2 (09:01→21:05)
--- NOTE | 2020-12-05 09:01 | Pain Management Progress Note ---
Date of Service December 05, 2020 Assessment & Plan (1) Chronic back pain: (2) Postlaminectomy syndrome of lumbosacral region: (3) Presence of intrathecal pump: * Intrathecal pump was increased by 30% today. She is now receiving Dilaudid 0.4063mg/day. * Pump refill scheduled 04/01/21 at 1300. * Wound checks scheduled for 12/10/20 at 1415 and 12/17/20 at 1400. * Continue to utilize hydrocodone 7.5/325 every 4 hours as needed and Dilaudid 0.5 mg every 2 hours if needed. * She would like to be discharged with home health to help her postoperatively. Admission and Anticipated Discharge Date Admission Date: December 04, 2020 Subjective Mrs. Rubalcava is an 80 year old female that is known to the Pain Service with lumbar post-laminectomy syndrome that required the implantation of an intrathecal pump and catheter delivery system implantation. The intrathecal catheter was nonfunctioning so the pump and catheter was replaced. She denies any pain relief with the intrathecal pump dosage increase that was made yesterday. Today she complains of low back and bilateral hip pain. She has been utilizing Hydrocodone 7.5mg PO and Dilaudid 0.5mg IV with mild pain relief. She has been having difficulty with moving due to pain. She was crying last night due to pain. She has been passing gas and having BMs. Physical Exam Physical Exam: GENERAL: This is a morbidly obese 80 year old female. HEAD/FACE: Normocephalic and atraumatic. EYES: No drainage or conjunctival injection. ENT: Nose without bleeding or discharge. Oral mucosa moist. NECK: Full ROM without apparent pain. No swelling or masses noted. RESPIRATORY: Patient with unlabored breathing. No signs of respiratory distress. CHEST/AXILLA: Chest movement symmetrical. No deformities noted. ABDOMEN: Aquacel bandage on the left lower abdomen. No breakthrough bleeding. No surrounding erythema. BACK: There is a Prineo bandage in place. Dry dressing was changed. SKIN: [place], warm and dry. No rash noted. MS/EXTREMITY: No swelling, no deformities. NEURO: Alert and appears oriented. Speech is fluent. Cranial Nerves are grossly intact.
[2020-12-05] MEDS: DOCUSATE SODIUM 100 MG CAP PO SCH ×4 (09:05→21:05)
[2020-12-05] MEDS: POLYETHYLENE (MIRALAX) 17 GM PACK PO SCH ×2 (09:06→21:06)
[2020-12-05] MEDS: INSULIN ASPART 100 UNITS/ML 3 ML PEN SC SCH ×4 (09:06→21:07)
[2020-12-05] MEDS: PREGABALIN 75 MG CAP PO SCH ×2 (09:11→21:03)
[2020-12-05] MEDS: clonazePAM 1 MG TAB PO SCH ×2 (09:11→21:03)
--- NOTE | 2020-12-05 09:13 | Discharge Summary ---
Date of Service December 05, 2020 Admission HPI Per Admitting Provider Mrs. Rubalcava is an 80-year-old morbidly obese white female who is known to the pain service over the past 1 year. The patient transferred her intrathecal pump care from her prior physician in the [place] area to our office. She has had poor ongoing pain control with use of her intrathecal pump since her initial visit in our office. She had reported adequate pain control initially upon implantation of the pump. Investigation has revealed a concern over a malfunctioning catheter and it has been recommended that she undergo intrathecal pump revision/replacement with catheter revision. The patient underwent a catheter dye study with inability to aspirate off the catheter. Imaging of her thoracic spine had failed to reveal catheter abnormality at that level. She continues to have pain in the axial lumbar spine as her primary pain generator rating her pain at a 3-8/10. Patient has difficulty performing simple ambulatory and ADL activities due to her poor pain control. Patient indicates that her pain is predominantly axial with minimal radicular component. Patient has a greater than 20-year history of chronic intractable axial low back pain with multiple surgical interventions of lumbar spine with laminectomy without hardware. Patient had previously failed multiple treatments including but not limited to physical therapy, prior surgeries, gabapentin, oral opiate therapy and acetaminophen. She was previously unable to recall prior lumbar spine injections completed prior to her surgical interventions. Admission Exam (Per Admitting) Constitutional WD/WN, vitals as above + morbidly obese Eyes PERRL, conjunctivae normal, anicteric sclerae ENMT external ear and nose normal, oropharynx normal Neck trachea midline, no thyromegaly Respiratory normal respiratory effort, lungs clear to auscultation Cardiovascular RRR, no murmur, no edema Gastrointestinal (Abdomen) normal bowel sounds, soft, nontender, no hepatosplenomegaly Intrathecal pump in LLQ Musculoskeletal no cyanosis or clubbing, extremities motor strength 5/5 Skin no rashes, warm and dry Neurologic PERRL, EOMI, accommodation nl, no face palsy, no dysarthria Psychiatric A+Ox3, euthymic affect Discharge Data Consultations 12/03/20 13:08 Consult Hospitalist Routine Procedures Performed Operation Date: 12/03/20 12:00 Actual Procedures p Intrathecal Drug Administration System Revision(Left) - Victoria Kelley DO Hospital Course (1) Presence of intrathecal pump: Intrathecal pump and catheter was replaced. A 25% dosage increase was made yesterday and 30% made today. She continues to report low back and bilateral hip pain. Patient has been taking Hydrocodone PO and Dilaudid IV for pain with little relief. She will have home health on discharge to help with dressing changes. Wound check appointments have been made. Discharge Instructions Wear abdominal binder 15/03 x 4 weeks. Dry dressing change on back incision. Leave abdominal bandage alone, this will be removed at 1 week wound check. Take oral Hydrocodone if needed for breakthrough pain.
[2020-12-05] MEDS ORDERED: HYDROmorphone INJ 1 MG/ML SYRINGE IV STA (09:48)
[2020-12-05] MEDS ORDERED: HYDROmorphone INJ 1 MG/ML SYRINGE IV SCH (09:48)
--- NOTE | 2020-12-05 10:01 | Hospitalist Progress Note ---
Date of Service December 05, 2020 Assessment & Plan (1) Presence of intrathecal pump: Impression: This is an 80-year-old female that had a pain pump installed at [facility]. She then transferred care to the [facility] physician group pain clinic and has followed there. She has complained of increasing pain and was seen in the outpatient setting. It was identified that the pain pump need exploration. The pump was found to have a fractured catheter. The patient was taken to the operating theater and the catheter was cut close to the pump and ligated. A new catheter was then threaded under guidance fluoroscopy and a new pump was inserted. The patient is admitted to the telemetry [facility] for further evaluation and management secondary to multiple comorbidities. Recommendations: 1. Intractable pain: Patient's previous pump was with Dilaudid and bupivacaine. Newly inserted pump is with Dilaudid only. Pain management is following and increased output of Dilaudid again this morning. Patient is also receiving 0.5 mg of IV Dilaudid IV push as well as Nunda 5/325 mg for breakthrough pain. Patient restarted on outpatient Lyrica (pregabalin) 75 mg p.o. twice daily. I ordered PT/OT evals and treatment. concerned that he can not manage her at home alone if she continues to be in this much pain. Will premedicate with Dilaudid 1mg IV prior to PT. Discussed with pain management PA. Will sign off today. 2. Nausea vomiting: Resolved. Patient had prolonged QTC so Zofran was stopped and patient was given 12.5 mg of IV Phenergan. Advance diet as tolerated. Ate half of her breakfast this morning 3. Prolonged QTC: Resolved. Patient had previous EKG in August 2019 with prolonged QTC at 700 ms. All of her follow-up EKGs had a QTC of approximately 470 ms. Initial EKG yesterday with prolonged QTC in the 700 ms range. At the end of the day, repeat EKG showed a normalized QTC. Patient does have a right bundle branch block. She remains on telemetry unit pending discharge home. 4. COPD: No tobacco abuse history. No other pulmonary disease. Patient is a lifelong non-smoker. Patient is on chronic supplemental oxygen at 2 L/min via nasal cannula. She receives the same dose at night. I could not find any pulmonary function testing. I would surmise of the COPD diagnosis. No bronchodilators were ordered as an outpatient. Would recommend duo nebs if needed. Continue diuresis with furosemide 40 mg p.o. twice daily to avoid pulmo nary edema. 5. Sleep apnea, nocturnal hypoxia: Patient states that she sleeps with 2 pillows. She states that she uses chronic oxygen at 2 L/min via nasal cannula and that she does not have a CPAP or BiPAP machine. Based on body habitus, would recommend outpatient polysomnography exam with titration. Continue nocturnal supplemental O2. 6. GERD: Continue pantoprazole. Patient has no complaints of midepigastric pain or heartburn 7. Hypertension: Blood pressure has been fairly stable. Continue with diuretics including furosemide and spironolactone. Titrate supplemental oxygen to contain SaO2 between 88 and 92%. 8. Chronic kidney disease: Follow strict I's and O's. Patient with some chronic disease. Follow serial labs 9. Diabetes mellitus type 2: Random glucose 271 mg/Maykel. Hemoglobin A1c 7.9%. Home meds include Lantus. This will be continued as an inpatient. We will also add NovoLog sliding scale insulin and glycemic consult for management of sugars. Diabetic diet Thank you for including us in the care of this patient. We will sign off at this time. Once pain is controlled, patient could be discharged home from a medical perspective. (2) COPD (chronic obstructive pulmonary disease): (3) Postlaminectomy syndrome of lumbosacral region: (4) Sleep apnea: (5) GERD (gastroesophageal reflux disease): (6) Dependence on continuous supplemental oxygen: (7) Hyperlipidemia: (8) HTN (hypertension): (9) Diabetes mellitus: (10) Chronic kidney disease: (11) Thyroid disease: (12) IBS (irritable bowel syndrome): (13) Restless legs syndrome (RLS): (14) DVT prophylaxis: Admission and Anticipated Discharge Date Admission Date: December 04, 2020 Subjective Attending: Dr. Sanford Patient seen and examined. Continues with 10/10 pain to the left leg. Sensation intact and equal to B/L LEs. Restarted home dose of Lyrica last night at 9pm. I ordered PT/OT evals as patient is saying that she is having difficulty moving and lives alone with her at home. updated and is concerned that he will not be able to manage if she is still in this much pain. Will premedicate with 1 mg IV dilaudid 30 minutes prior to physical therapy. Has been doing well with break through doses of Dilaudid 0.5mg IV. No other acute complaints other than acute on chronic pain. Review of Systems Review of Systems: All systems reviewed & are unremarkable except as noted in Subjective Physical Exam Constitutional: WD/WN, vitals as above Eyes: PERRL ENMT: Nose: no external nose abnormality Mouth: no lip abnormality and no oropharynx abnormality Throat: uvula midline Neck: normal visual inspection Respiratory: normal respiratory effort, lungs clear to auscultation Cardiovascular: RRR, no murmur, no edema Gastrointestinal (Abdomen): normal bowel sounds, soft, nontender, no hepatosplenomegaly Skin: no rashes, warm and dry Results & Data Results & Data ([facility]) Vital Signs (Past 12 Hours) Vital Signs Temp Pulse Pulse Pulse Resp BP Pulse Ox 12/05/20 07:54 78 12/05/20 07:31 37.5 C 72 16 131/76 94 12/05/20 03:30 85 12/05/20 03:00 37 C 82 22 148/73 H 96 12/04/20 22:30 37.0 C 83 16 147/60 H 94 Laboratory Results 11/26/20 11:51 11/26/20 11:51 PG Care Time/CCT Total # of Minutes Spent Total Time Spent with Patient: Total time spent is greater than 50% in coordination of care (as documented) at patient's floor/unit and/or counseling patient: Coding Level of Care Code 74503 Subseq Hosp Care Lvl 2 Diagnoses Presence of intrathecal pump Z97.8 COPD (chronic obstructive pulmonary disease) J44.9 Postlaminectomy syndrome of lumbosacral region M96.1 Sleep apnea G47.30 GERD (gastroesophageal reflux disease) K21.9 Dependence on continuous supplemental oxygen Z99.81 Hyperlipidemia E78.5 HTN (hypertension) I10 Diabetes mellitus E11.9 Chronic kidney disease N18.9 Thyroid disease E07.9 IBS (irritable bowel syndrome) K58.9 Restless legs syndrome (RLS) G25.81 DVT prophylaxis Z29.9 Time Spent (min) 30
--- NOTE | 2020-12-05 15:15 | Pharmacy Report ---
Pharmacy Glycemic Short Note 2 - Date of Service December 05, 2020 - Glycemic Short BSG Results (Last 24 hours): 12/04/20 12/05/20 12/05/20 21:56 03:49 07:41 POC Glucose 133 H 195 H 166 H 12/05/20 11:14 POC Glucose 263 H OUTPATIENT ANTIDIABETIC REGIMEN: * Lantus 20 units daily ASSESSMENT: 12/05: * Patient admitted last evening for revision of intrathecal pump. Type 2 diabetic managed only on Lantus at home * Fasting BSG 166 mg/dL - plan to continue continue home basal, will add novolog for additional coverage PLAN FOR INPATIENT GLYCEMIC CONTROL: * Hold outpatient oral diabetes medications * Basal insulin * Lantus 20 units HS * Bolus insulin * NovoLog per scale ACHS or Q6hrs while NPO * Goal Range: Low 110 mg/dL - High 140 mg/dL * Correction Factor: 20 mg/dL/unit * Nutritional / Prandial insulin per carb ratio of 1 unit per 7 grams CHO consumed PLAN FOR DISCHARGE: * tbd
[2020-12-05] MEDS: MELATONIN 3 MG TAB PO SCH (21:03)
[2020-12-05] MEDS: AMITRIPTYLINE HCL 25 MG TAB PO SCH (21:05)
[2020-12-05] MEDS: traZODone HCL 100 MG TAB PO SCH (21:05)
[2020-12-05] MEDS: INSULIN GLARGINE SOLOSTAR 100 UNITS/ML 3 ML PEN SQ SCH (21:07)
--- NOTE | 2020-12-05 22:20 | Electrocardiogram Report ---
Test Reason : Blood Pressure : / mmHG Vent. Rate : 089 BPM Atrial Rate : 089 BPM P-R Int : 212 ms QRS Dur : 082 ms QT Int : 348 ms P-R-T Axes : 063 009 002 degrees QTc Int : 423 ms Sinus rhythm with 1st degree A-V block Minimal voltage criteria for LVH, may be normal variant Inferior infarct , age undetermined Nonspecific T wave abnormality Abnormal ECG When compared with ECG of 04-DEC-2020 08:34, Inferior infarct is now Present Inverted T waves have replaced nonspecific T wave abnormality in Inferior leads QT has shortened Confirmed by Talib Macdonald ([id number]) on 12/05/2020 10:19:44 PM Referred By: Isrrael Perez Confirmed By:Talib Macdonald
[2020-12-06] MEDS: LEVOTHYROXINE SODIUM 88 MCG TABLET PO SCH (06:02)
[2020-12-06] MEDS: HYDROmorphone INJ 0.5 MG/0.5 ML SYR IV PRN (06:04)
[2020-12-06] MEDS: HYDROCODONE/ACETAMINOPHEN 7.5/325MG TAB PO PRN ×2 (08:50→13:00)
[2020-12-06] MEDS: POTASSIUM CHLORIDE CRTAB 20 MEQ TABCR PO SCH (08:50)
[2020-12-06] MEDS: PREGABALIN 75 MG CAP PO SCH (08:50)
[2020-12-06] MEDS: clonazePAM 1 MG TAB PO SCH (08:51)
[2020-12-06] MEDS: PANTOprazole 40 MG TAB PO SCH (08:51)
[2020-12-06] MEDS: LUBIPROSTONE 8 MCG CAP PO SCH (08:51)
[2020-12-06] MEDS: DOCUSATE SODIUM 100 MG CAP PO SCH ×2 (08:51→08:54)
[2020-12-06] MEDS: SPIRONOLACTONE 25 MG TAB PO SCH (08:51)
[2020-12-06] MEDS: FUROSEMIDE 40 MG TAB PO SCH (08:51)
[2020-12-06] MEDS: CHOLECALCIFEROL 1,000 UNITS 25 MCG TAB PO SCH (08:51)
[2020-12-06] MEDS: INSULIN ASPART 100 UNITS/ML 3 ML PEN SC SCH ×2 (08:51→12:11)
[2020-12-06] MEDS: POLYETHYLENE (MIRALAX) 17 GM PACK PO SCH (08:54)
--- NOTE | 2020-12-06 09:01 | Pain Management Progress Note ---
Date of Service December 06, 2020 Assessment & Plan (1) Chronic back pain: (2) Postlaminectomy syndrome of lumbosacral region: (3) Presence of intrathecal pump: * Intrathecal pump was increased by 30% today. She is now receiving Dilaudid 0.5280mg/day. * Pump refill scheduled 04/01/21 at 1300. * Wound checks scheduled for 12/10/20 at 1415 and 12/17/20 at 1400. * Continue to utilize hydrocodone 7.5/325 every 4 hours as needed and Dilaudid 0.5 mg every 2 hours if needed. Try not to use any IV Dilaudid in anticipation of discharge. * Patient did admit to taking more pain pills than prescribed in the past. Her was put in charge of the medications in the past and Miriam is aware that her will be in charge of the medications once again. * She does continue to report 10/10 pain even though she is sitting and eating breakfast not appearing in any pain. Even after she is medicated and sleeping, she'll report 10/10 pain. Despite multiple dose increases to the intrathecal pump and oral/IV Dilaudid her pain number does not go down. We have discussed expectations on pain relief and unsure if it's realistic. She is able to ambulate small amounts with a walker which is at her baseline. * Could consider adding Cymbalta to help with both pain and depression. * She would like to be discharged with home health to help her postoperatively. Admission and Anticipated Discharge Date Admission Date: December 04, 2020 Subjective Mrs. Rubalcava is an 80 year old female that is known to the Pain Service with lumbar post-laminectomy syndrome that required the implantation of an intrathecal pump and catheter delivery system implantation. The intrathecal catheter was nonfunctioning so the pump and catheter was replaced on 12/03. She denies any pain relief with the intrathecal pump dosage increase that was made yesterday. She complains of low back and bilateral hip pain. Pain remains 10/10. She has been utilizing Hydrocodone 7.5mg PO and Dilaudid 0.5mg IV with mild pain relief. She did work with physical therapy yesterday and has been working on ambulating with a walker again. Case discussed with Dr. Victoria Kelley Pain Assessment Pain Assessment Full Body Front + Back: 1. 2. [facility] Combined Pain Scale: 10-Worst Imaginable - Paralyzing. Decreased consciousness due to pain. Physical Exam Physical Exam: GENERAL: This is a morbidly obese 80 year old female. HEAD/FACE: Normocephalic and atraumatic. EYES: No drainage or conjunctival injection. ENT: Nose without bleeding or discharge. Oral mucosa moist. NECK: Full ROM without apparent pain. No swelling or masses noted. RESPIRATORY: Patient with unlabored breathing. No signs of respiratory distress. CHEST/AXILLA: Chest movement symmetrical. No deformities noted. ABDOMEN: Aquacel bandage on the left lower abdomen. No breakthrough bleeding. No surrounding erythema. BACK: There is a Prineo bandage in place. Dry dressing was changed. SKIN: [place], warm and dry. No rash noted. MS/EXTREMITY: No swelling, no deformities. NEURO: Alert and appears oriented. Speech is fluent. Cranial Nerves are grossly intact.
== END 2020-12-06 13:54 | disposition home health service (06) | DRG 29 ==
LOC: 2S 10:38 → PAT 10:38 → 2W 12-04 17:42

== ENCOUNTER 2020-12-14 12:27 | Inpatient (IN) ==
[2020-12-14] MEDS ORDERED: SODIUM CHLORIDE 0.9% 500 ML IV ONE (13:28)
[2020-12-14] MEDS ORDERED: ACETAMINOPHEN 1,000 MG/100 ML VIAL IV STA (13:28)
[2020-12-14] MEDS ORDERED: HYDROmorphone INJ 0.5 MG/0.5 ML SYR IV STA (13:35)
[2020-12-14 14:32] LABS: Appearance Urine Clear (Clear); Bacteria Urine Automated Negative (Negative); Bilirubin Urine Negative (Negative); Blood Urine Trace (Negative); Color Urine Yellow; Epithelial Cell Urine Auto >30 /lpf (0-5); Glucose Urine UA Negative (Negative); Ketones Urine Negative (Negative); Leukocyte Esterase Urine 2+ (Negative); Nitrite Urine Negative (Negative); Protein Urine Negative (Negative); RBC Urine Automated 0-4 /hpf (0-4); Specific Gravity Urine 1.018 (1.000-1.030); Urobilinogen Urine Negative (Negative); pH Urine 6.5 (4.5-7.5)
[2020-12-14 14:49] LABS: Influenza A virus by PCR Negative (Neg); Influenza B virus by PCR Negative (Neg); RSV by PCR Negative (Neg); SARS CoV2 RNA(COVID-19) InHosp NEGATIVE (Negative)
--- NOTE | 2020-12-14 14:53 | CT Scan Report ---
CT SCAN OF THE ABDOMEN AND PELVIS WITHOUT IV CONTRAST CLINICAL HISTORY: Low back pain. COMPARISON STUDY: Abdominal CT dated 06/07/2020. TECHNIQUE: CT scan of the abdomen and pelvis is performed from the lung bases to the proximal femora. Images are reviewed in the axial, sagittal, and coronal planes. IV contrast was not administered for this examination. A dose lowering technique was utilized adhering to the principles of ALARA. CT DOSE: 1368.15 mGy.cm FINDINGS: Lung bases: The heart is top normal in size and without pericardial effusion. There are coronary ramya ry calcifications. A small hiatal hernia is noted. The lung bases are clear noting bibasilar scarring /atelectasis. Liver: The unenhanced liver is normal in size, contour, and attenuation. There is no intrahepatic brendon iary ductal dilatation. Gallbladder: Surgically absent. Spleen: Normal in size and attenuation. Pancreas: The unenhanced pancreas is atrophic and grossly unremarkable. Adrenal glands: Unremarkable. Kidneys: The unenhanced kidneys demonstrate cortical atrophy and are without hydronephrosis. There is a punctate nonobstructing right renal calculus. No left renal calculi are identified. Small simple a nd complex/hyperdense renal cysts measure up to 11 mm. These are unchanged from previous. Abdominal vasculature: The abdominal aorta is normal in course and caliber noting mild to moderate at herosclerotic calcification. Postoperative change is noted involving the inferior vena cava. Bowel: There is mild to moderate colonic fecal retention. No bowel obstruction is seen. The appendix is not identified and reported surgically absent Peritoneum: There is no intraperitoneal free air or abdominal ascites. There is diastases of the rect us musculature with laxity of the ventral abdominal wall. Lymphadenopathy: None. Pelvic viscera: The bladder is normal as visualized. The uterus is surgically absent. No adnexal lesi on is seen. Skeletal structures: The skeletal structures are osteopenic. Extensive postlaminectomy change is note d throughout the lumbar spine. There are chronic compression deformities of T11 and T12 with previous vertebroplasty at T12. Spondylotic change is noted throughout the lumbar spine. No lytic or blastic lesions are seen. Postoperative change is partially visualized in the right proximal femur. Intrathe lashawn device is present within the left lower quadrant abdominal wall. Catheters enter the central sylvia l in the upper lumbar region. A bone graft donor site is suggested in the left ilium. There is fatty atrophy of the paraspinous musculature. IMPRESSION: 1. No acute infectious or inflammatory findings are identified in the abdomen or pelvis. 2. Punctate nonobstructing right renal calculus. 3. Extensive chronic, postoperative, and degenerative change throughout the lumbar spine is similar t o prior studies. No acute bony abnormality is seen. 4. Additional findings as above. ACT 112: Negative or not required by law. Electronically signed by: Bunny Garland M.D. 12/14/2020 2:51 PM
[2020-12-14 15:18] LABS: Basophils # (auto) 0.03 K/uL (0-0.2); Basophils % (auto) 0.4 %; Eosinophils % (auto) 3.6 %; Immature Granulocytes # (auto) 0.02 K/uL (0.00-0.02); Immature Granulocytes % (auto) 0.2 %; Lymphocytes # (auto) 2.33 K/uL (1.2-3.4); Lymphocytes % (auto) 28.2 %; Mean Corpuscular Hemoglobin 28.8 pg (25-34); Mean Corpuscular Hgb Conc 31.7 g/dL (32-36); Mean Corpuscular Volume 90.9 fL (80-100); Mean Platelet Volume 9.7 fL (7.4-10.4); Monocytes # (auto) 0.62 K/uL (0.11-0.59); Monocytes % (auto) 7.5 %; Neutrophils # (auto) 4.97 K/uL (1.4-6.5); Neutrophils % (auto) 60.1 %; Platelet Count 281 K/uL (130-400); RDW Standard Deviation 42.9 fL (36.4-46.3); Red Blood Count 4.51 M/uL (4.2-5.4); White Blood Count 8.27 K/uL (4.8-10.8)
[2020-12-14 15:39] LABS: Albumin Level 3.6 gm/dl (3.4-5.0); BUN Creatinine Ratio 16.9 (10-20); Calcium 9.2 mg/dl (8.5-10.1); Creatinine Clr Calc Pharmacy 38.6 ml/min; Est GFR (African American) 46.7; Est GFR (Non-African American) 40.3; Magnesium 2.4 mg/dl (1.8-2.4); Potassium 4.1 mmol/L (3.5-5.1)
[2020-12-14 15:42] LABS: Albumin Globulin Ratio 0.9 (0.9-2); Bilirubin,Total 0.2 mg/dl (0.2-1); Globulin 3.9 gm/dl (2.5-4.0); Phosphorus 2.7 mg/dl (2.5-4.9); Total Protein 7.5 gm/dl (6.4-8.2)
[2020-12-14] MEDS ORDERED: HYDROCODONE/ACETAMINOPHEN 7.5/325MG TAB PO PRN ×2 (16:46→18:54)
[2020-12-14] MEDS ORDERED: KETOROLAC TROMETHAMINE 15 MG/ML VIAL IV ONE ×2 (16:48→23:39)
--- NOTE | 2020-12-14 17:23 | History & Physical Report ---
Date of Service December 14, 2020 Assessment & Plan (1) Sacroiliac joint pain: Patient current exam and pain location is mostly consistent with sciatic impingement, with also SI joint tenderness on right and left side - Patient states pain 10/10- no facial grimace, HR 70's, normotensive, normal respiratory rate - reports no change after IV Dilaudid - Toradol 15mg IV x1- repeat if needed later - Lidoderm patch - PT/OT- patient immobility and deconditioning is likely aggravating this chronic and acute issue - Heat or Ice therapy, whichever patient prefers and minimizes symptoms - Appreciate pain management consult and further evaluation of treatment options (2) Chronic back pain: As above- intrathecal pain pump with hydromorphone 2mg/ml - Continue her hydrocodone 5/325 1 tab PO q4-6 hrs PRN - Continue her pregabalin 75mg PO BID- for her neuropathy as well (3) Dependence on continuous supplemental oxygen: likely component of obesity hypoventilation syndrome, no ABG- no PFTs- chronically elevated HCO3 supports - not on CPAP at home, has never had a sleep study performed, would beneficial as outpatient with her chronic pain medications. - She also has COPD listed on her medical problems but likely this is restrictive in nature- she is on no RADHA, LABA/LAMA - If needed can add Combivent or albuterol single agent. (4) Presence of intrathecal pump: Recently changed- pump report 12/10/20- per pain managment (5) Obesity: As above (6) HTN (hypertension): Continue Lasix Continue Spironolactone (7) Diabetes mellitus: Moderatley controlled - Continue Lantus - Goal 120-180 (8) DDD (degenerative disc disease): As above, chronic History of Present Illness Chief Complaint: pain Primary Care Provider: Ena Coreas MD 80 YOF with history of obesity, chronic back pain with postlaminectomy syndrome requiring an intrathecal pain pump. Her intrathecal pain pump was recently changed out on 12/03/20 secondary to inoperability with inability to withdraw CSF. Patient now has implanted intrathecal pump with single agent hydromorphone. Patient comes in today for 10/10 pain that is her chronic pain but now with pain that goes into her left buttocks and down her lateral leg and terminates at the knee. The patient had her pump increased by 30% by the pain service on 12/06/20 for continued complaints of 10/10 pain to her hips and back. She was discharged on the 06 of December and had a follow up appointment on 12/10 with the pain management service. Patient pain that she is experiencing now was also noted at that time, and plan of care was communicated with the patient and the on that visit. Steroid injections were deferred secondary to recent surgical incisions, Ice therapy and Biofreeze as well as continuing her hydrocodone for breakthrough pain. Per the and the patient this pain has not improved, so they came to the emergency room today. The patient was evaluated with a abdominal CT scan, was given 1gm IV Tylenol and 0.5mg Hydromorphone. The hospitalist service was contacted for admission for retractable 10/10 pain. Upon my entering the room the patient was resting with her eyes closed. She immediately woke up complaining of pain to her left leg. Patient describes the pain as constantly there and sharp that travels along her lower back and then into her left buttocks and down her leg. This pain has not changed since her appointment on the , but is more constant at this time. I traced the pain that she described with my hand and is consistent with sciatic pain. Patient will be admitted for pain control and consult placed to pain management service. PT/OT consult will be placed and adjuvant therapy will be added to include Toradol, Lidoderm patch, heat/ice therapy. Her incision site looks well and continues to have her abdominal binder on. Patient chronic medical history is also positive for orthopnea which she sleeps on 2 pillows at home and 2LNC, HTN, GERD, DMII on Lantus, IBS with n/v, ? COPD, HLD, hypothyroidism and RLS. Allergies Allergy/AdvReac Type Severity Reaction Status Date / Time codeine Allergy Intermediate SWELLING Verified 12/14/20 15:25 fluticasone Allergy Intermediate swelling Verified 12/14/20 15:25 iodine Allergy Intermediate Rash Verified 12/14/20 15:25 shellfish derived Allergy Intermediate SWELLS Verified 12/14/20 15:25 Sulfa (Sulfonamide Allergy Intermediate SWELLING Verified 12/14/20 15:25 Antibiotics) acetaminophen [From Percocet] Allergy Mild N/V Verified 12/14/20 15:25 adhesive tape Allergy Mild RED AND Verified 12/14/20 15:25 SORE butorphanol Allergy Mild N/V Verified 12/14/20 15:25 lubiprostone [From Amitiza] Allergy Mild Rash Verified 12/14/20 15:25 morphine Allergy Mild SWELLING Verified 12/14/20 15:25 oseltamivir [From Tamiflu] Allergy Mild N/V Verified 12/14/20 15:25 linaclotide [From Linzess] AdvReac Intermediate starry eye Verified 12/14/20 15:25 oxycodone AdvReac Mild AGITATION Verified 12/14/20 15:25 Home Medications Medication Instructions Recorded Confirmed Type clonazepam 1 mg tablet 1 mg PO BID 10/11/19 12/14/20 History docusate sodium 100 mg capsule 100 mg PO BID 10/11/19 12/14/20 History levomilnacipran 80 mg capsule,24 80 mg PO QAM 10/11/19 12/14/20 History hr,extended release levothyroxine 88 mcg capsule 88 mcg PO QAM 10/11/19 12/14/20 History melatonin 10 mg tablet 10 mg PO HS 10/11/19 12/14/20 History potassium chloride 20 mEq 20 meq PO BID 10/11/19 12/14/20 History tablet,extended release spironolactone 25 mg tablet 25 mg PO BID 10/11/19 12/14/20 History trazodone 100 mg tablet 100 mg PO HS tab 10/11/19 12/14/20 History insulin glargine 100 unit/mL 20 unit SQ HS 12/04/19 12/14/20 History subcutaneous solution cholecalciferol (vitamin D3) 25 25 mcg PO QAM 01/26/20 12/14/20 History mcg (1,000 unit) capsule furosemide 40 mg tablet 40 mg PO BID 01/26/20 12/14/20 History hydroxyzine HCl 25 mg tablet 50 mg PO TID PRN 01/26/20 12/14/20 History cyanocobalamin (vitamin B-12) 1,000 mcg IM Q90D 06/07/20 12/14/20 History ondansetron HCl [Zofran] 4 mg PO Q8H PRN 06/07/20 12/14/20 History lubiprostone 8 mcg capsule 8 mcg PO BID #60 cap 11/08/20 12/14/20 Rx docusate sodium [Stool Softener] 100 mg PO QAM 11/14/20 12/14/20 History polyethylene glycol 3350 [Miralax] 17 g PO BID 11/14/20 12/14/20 History esomeprazole magnesium 40 mg 40 mg PO BID 30 Days #60 cap 11/15/20 12/14/20 Rx capsule,delayed release pregabalin 75 mg capsule 75 mg PO BID #60 cap 11/15/20 12/14/20 Rx famotidine 20 mg tablet 20 mg PO BID 12/10/20 12/14/20 History hydrocodone 7.5 mg-acetaminophen 1 tab PO Q4 PRN #18 tab 12/10/20 12/14/20 Rx 325 mg tablet Past Med/Surg History Medical History Anxiety disorder Arthritis Asthma Cervical postlaminectomy syndrome Chronic kidney disease F/U DR CUONG SARGENT COPD (chronic obstructive pulmonary disease) On 2L O2 chronically, does not use any inhalers DDD (degenerative disc disease) Dependence on continuous supplemental oxygen 2L via [place] Diabetes mellitus On insulin 20 units HS Greater trochanteric bursitis of left hip History of COVID-19 DX'D END 06/2020-FEVER, BODY ACHES, COUGH-NOT HOSPITALIZED-SYMPTOMS RESOLVED HTN (hypertension) Hyperlipidemia Nausea and vomiting Pt reports she has not had this for the past 4 months. Obesity Postlaminectomy syndrome of lumbosacral region Presence of intrathecal pump [facility] PAIN [facility]-- DILAUDID Sacroiliac joint pain Sleep apnea JUST OXYGEN CONT 2L/IN -- COULD NOT TOLERATE CPAP DUE TO CLAUSTROPHOBIA. Spinal stenosis of thoracolumbar region Stomach ulcer HX Surgical History H/O colonoscopy H/O neck surgery H/O: hysterectomy History of knee replacement, total LEFT AND RIGHT History of open reduction and internal fixation (ORIF) procedure RIGHT FOOT Hx laparoscopic cholecystectomy Hx of tonsillectomy Hx of total shoulder replacement RIGHT AND LEFT Nausea and vomiting after administration of anesthetic agent AND SLOW TO WAKE UP X 1 Previous back surgery Family History Father Diabetes Stomach ulcer Cancer Hypertension Daughter Family history of reaction to anesthesia PONV Social History Smoking Status: Never smoker Second Hand Exposure: Yes (PARENTS SMOKED); Hx Alcohol Use: No Hx Substance Use: No Preferred Language: Spanish Communication Ability: Effective Visual Impairment: No Limitations Hearing Ability: Use of Hearing Aid Customer Program Specialist Required: No Beliefs That Will Affect Care: None marital status: Current Living Situation: Spouse current occupational status: retired Feels Safe at Home: Yes Assistive Devices: Walker Review of Systems Review of Systems: REVIEW OF SYSTEMS: Constitutional: No fever, sweats or chills Eyes: (+) wears glasses, No diplopia, no worsening or blurred vision, ENT: normal hearing, no trouble swallowing Respiratory: (+) dyspnea with exertion No cough, sputum, dyspnea at rest Cardiovascular: No chest pain, tightness or palpitations Abdomen: (+) nasuea, No pain, vomiting, diarrhea or constipation Musculoskeletal: (+) per HPI Neurologic: (+) balance, pain with movement Psychiatric:(+) depression Skin: No rash or itch Physical Exam Physical Exam: PHYSICAL EXAM: General: awake, alert, no facial grimacing, flat affect Head: Normocephalic, atraumatic ENT: PERRL, EOMI, no pharyngeal exudate, mucous membranes moist Neuro: AAO x 3, speech clear and appropriate, strength intact bilaterally 5/5, sensation intact and equal all extremities and dermatomes, no pronator drift, hypersensitive pain response with touch and movement. Chest: equal rise and fall of the chest, no accessory muscle use, no heaves or thrills, Clear to auscultation, on 2lNC, NOT tachypneic Cardiac: Regular rate and rhythm NOT tachycardic, telemetry reviewed, skin warm dry, cap refill <3 seconds, peripheral pulses, +2 no JVD, no murmur, (+2) edema to bilateral lower extremities. GI: NABS x 4 quadrants, soft, nontender to palpation, no rebound, guarding or tenderness : Spontaneously voiding, no pain, no CVA tenderness, Extremities: Normal inspection, no peripheral edema or erythema, calfs nontender to palpation Psych: Normal mood and affect Skin: no rash or erythema Results & Data Results & Data ([facility]) Vital Signs (Past 12 Hours) Vital Signs Temp Pulse Resp BP Pulse Ox 12/14/20 12:45 36.3 C L 85 20 129/66 99 Laboratory Results Abnormal lab results 12/14/20 12/14/20 12/14/20 Range/Units 14:00 14:59 14:59 MCHC 31.7 L (32-36) g/dL [place] # (Auto) 0.62 H (0.11-0.59) K/uL Sodium 135 L (136-145) mmol/L Carbon Dioxide 36 H (21-32) mmol/L Anion Gap 1.0 L (3-11) BUN 21 H (7-18) mg/dl Creatinine 1.25 H (0.6-1.2) mg/dl Glucose 181 H (70-99) mg/dl AST 10 L (15-37) U/L Alkaline Phosphatase 128 H (45-117) U/L Urine Blood Trace H (Negative) Ur Leukocyte Esterase 2+ H (Negative) Urine WBC (Auto) 10-30 H (0-5) /hpf U Epithel Cells (Auto) >30 H (0-5) /lpf Ur Renal Epithelial Cell 5-10 H (0-5) /lpf Diagnostic Findings CT SCAN OF THE ABDOMEN AND PELVIS WITHOUT IV CONTRAST CLINICAL HISTORY: Low back pain. COMPARISON STUDY: Abdominal CT dated 06/07/2020. TECHNIQUE: CT scan of the abdomen and pelvis is performed from the lung bases to the proximal femora. Images are reviewed in the axial, sagittal, and coronal planes. IV contrast was not administered for this examination. A dose lowering technique was utilized adhering to the principles of ALARA. CT DOSE: 1368.15 mGy.cm FINDINGS: Lung bases: The heart is top normal in size and without pericardial effusion. There are coronary artery calcifications. A small hiatal hernia is noted. The lung bases are clear noting bibasilar scarring/atelectasis. Liver: The unenhanced liver is normal in size, contour, and attenuation. There is no intrahepatic biliary ductal dilatation. Gallbladder: Surgically absent. Spleen: Normal in size and attenuation. Pancreas: The unenhanced pancreas is atrophic and grossly unremarkable. Adrenal glands: Unremarkable. Kidneys: The unenhanced kidneys demonstrate cortical atrophy and are without hydronephrosis. There is a punctate nonobstructing right renal calculus. No left renal calculi are identified. Small simple and complex/hyperdense renal cysts measure up to 11 mm. These are unchanged from previous. Abdominal vasculature: The abdominal aorta is normal in course and caliber noting mild to moderate atherosclerotic calcification. Postoperative change is noted involving the inferior vena cava. Bowel: There is mild to moderate colonic fecal retention. No bowel obstruction is seen. The appendix is not identified and reported surgically absent Peritoneum: There is no intraperitoneal free air or abdominal ascites. There is diastases of the rectus musculature with laxity of the ventral abdominal wall. Lymphadenopathy: None. Pelvic viscera: The bladder is normal as visualized. The uterus is surgically absent. No adnexal lesion is seen. Skeletal structures: The skeletal structures are osteopenic. Extensive post laminectomy change is noted throughout the lumbar spine. There are chronic compression deformities of T11 and T12 with previous vertebroplasty at T12. Spondylotic change is noted throughout the lumbar spine. No lytic or blastic lesions are seen. Postoperative change is partially visualized in the right proximal femur. Intrathecal device is present within the left lower quadrant abdominal wall. Catheters enter the central canal in the upper lumbar region. A bone graft donor site is suggested in the left ilium. There is fatty atrophy of the paraspinous musculature. IMPRESSION: 1. No acute infectious or inflammatory findings are identified in the abdomen or pelvis. 2. Punctate nonobstructing right renal calculus. 3. Extensive chronic, postoperative, and degenerative change throughout the lumbar spine is similar to prior studies. No acute bony abnormality is seen. 4. Additional findings as above. Medications Administered Discontinued Medications Hydromorphone HCl (Hydromorphone Inj 0.5 Mg/0.5 Ml Syr) 0.5 mg IV NOW STA Stop: 12/14/20 13:36 Last Admin: 12/14/20 15:12 Dose: 0.5 mg Documented by: [id number] Sodium Chloride (Nss) 500 mls @ 999 mls/hr IV .Q31M ONE Stop: 12/14/20 13:58 Last Admin: 12/14/20 15:13 Dose: 999 mls/hr Documented by: [id number] Acetaminophen (Ofirmev) 1,000 mg in 100 mls @ 400 mls/hr IV NOW STA Stop: 12/14/20 13:42 Last Admin: 12/14/20 15:12 Dose: 400 mls/hr Documented by: [id number] ECG Additional Comments: Sinus rhythm with 1st degree A-V block Minimal voltage criteria for LVH, may be normal variant Inferior infarct , age undetermined Nonspecific T wave abnormality Abnormal ECG When compared with ECG of 04-DEC-2020 08:34, Inferior infarct is now Present Inverted T waves have replaced nonspecific T wave abnormality in Inferior leads QT has shortened Confirmed by Talib Macdonald ([id number]) on 12/05/2020 10:19:44 PM Code Status & VTE Plan Code Status CODE: FULL VTE: SCD's , Heparin 5000 units Q12 Supervising Physician Co-Signing Physician Notes I supervised PREM Hernandez on this admission. I examined the patient today independently of him. I discussed the plan of care with him with the plan being as written in his note except for any following changes/exceptions: None. 80yo F w/ hx of COPD, DM who presents with intractable back pain. On my entrance to the room, she was sleeping soundly. It took several shakes and saying her name to rouse her. On arousal, she states she is in 10/10 pain. Agree with DIGITAL CONTENT SPECIALIST's plan of care. Will trial non-opioid treatments as she has clear concerns for oversedation and respiratory compromise. Pain Management to see on Wednesday. PG Care Time/CCT Total # of Minutes Spent Total Time Spent with Patient: Total time spent is greater than 50% in coordination of care (as documented) at patient's floor/unit and/or counseling patient: Coding Level of Care Code 40443 Initial Inpt Care Lvl 3 Diagnoses Sacroiliac joint pain M53.3 Chronic back pain M54.42; G89.29 Back pain laterality: unspecified Back pain location: low back pain Sciatica laterality: sciatica of left side Sciatica presence: with sciatica Dependence on continuous supplemental oxygen Z99.81 Presence of intrathecal pump Z97.8 Obesity E66.01; Z68.41 Body mass index: BMI 40.0-44.9 Obesity classification: adult class 3 (BMI >= 40) Obesity type: due to excess calories Serious obesity comorbidity presence: with serious comorbidity HTN (hypertension) I10 Hypertension type: essential hypertension Diabetes mellitus E11.69; Z79.4 Diabetes mellitus complication status: with other specified complication Diabetes mellitus termite exterminator insulin use: with termite exterminator use Diabetes mellitus type: type 2 DDD (degenerative disc disease) M51.37 Spinal region: lumbosacral (1) Diabetes mellitus Diabetes mellitus complication status: with other specified complication Diabetes mellitus prison insulin use: with termite exterminator use Diabetes mellitus type: type 2 Qualified Code(s): E11.69 - Type 2 diabetes mellitus with other specified complication; Z79.4 - penitentiary (current) use of insulin (2) DDD (degenerative disc disease) Spinal region: lumbosacral Qualified Code(s): M51.37 - Other intervertebral disc degeneration, lumbosacral region (3) Chronic back pain Back pain laterality: unspecified Back pain location: low back pain Sciatica laterality: sciatica of left side Sciatica presence: with sciatica Qualified Code(s): M54.42 - Lumbago with sciatica, left side; G89.29 - Other chronic pain (4) HTN (hypertension) Hypertension type: essential hypertension Qualified Code(s): I10 - Essential (primary) hypertension (5) Obesity Body mass index: BMI 40.0-44.9 Obesity classification: adult class 3 (BMI >= 40) Obesity type: due to excess calories Serious obesity comorbidity presence: with serious comorbidity Qualified Code(s): E66.01 - Morbid (severe) obesity due to excess calories; Z68.41 - Body mass index [BMI]40.0-44.9, adult
--- NOTE | 2020-12-14 17:37 | Emergency Department Note ---
Impression & Plan Postlaminectomy syndrome of lumbosacral region, Presence of intrathecal pump, Intractable back pain ED Provider Note NAME: MARIANA WATKINS AGE: 80 SEX: F ARRIVES VIA: Walk-In INFORMANT: Patient, ED PROVIDER(S): Yuri Starr MD CHIEF COMPLAINT: Intractable back pain PLAN: Disposition: Home. MEDICAL DECISION MAKING: The patient is a pleasant 80-year-old woman with a past medical history of post laminectomy syndrome lumbosacral region with a longstanding history of intractable back pain who who presents to the emergency department for worsening acute on chronic left lumbar pain with radicular symptoms. The patient presents in the setting of being s/p intrathecal pump catheter revision/replacement approximately 1 week ago where she has continued to have ongoing pain despite increasing pump rate prior to discharge and then on outpatient follow-up on Wednesday. The patient and her reported that her pain continues and she is only minimally able to participate in her home physical therapy. They deny any fevers, chills, cough, congestion, GI or symptoms. They report she did move her bowels yesterday without difficulty. The patient and at the bedside report that they were instructed by their pain specialist on Wednesday to present to the emergency department if her pain is not improving by the weekend. They are unsure of what the plan would be if this were to happen. The patient further describes to me that she has had ongoing pain for several years where they initially thought it was due to needing to replace the battery of her pain pump but then recently identified catheter malfunction leading to the hope that a pain pump replacement would address her intractable pain issues. On arrival the patient is chronically ill-appearing in no acute distress, afebrile stable vital signs. She has limited range of motion of the left lower extremity secondary to pain. She has mild tenderness of the left lower lumbar region. Her pain pump placement site on anterior abdomen has clean dry dressing intact. Abdomen is nontender. WBC, H/H and platelets within normal limits. Chemistry without metabolic acidosis. Creatinine 1.25 similar to prior injury values in the setting of CKD. Electrolytes unremarkable. LFTs without significant abnormality. UA with WBCs, leuk esterase but no bacteria and epithelial cells> 30. The 19 PCR was negative. Influenza and RSV PCR was also negative. CT done pelvis was performed and did not demonstrate acute findings. On reevaluation the patient denied any improvement following IV dilaudid and IV Tylenol. Thus, they are in agreement with plan for admission for further evaluation and pain control/management. Case was discussed with RIGO Bhatt hospitalist, who will evaluate the patient for admission. Triage Nursing notes reviewed and agree them. Prior medical records reviewed Vital Signs: reviewed and remarkable for no significant abnormalities Differential diagnosis: Musculoskeletal, disc herniation, fracture, metastatic disease, cord compression, discitis, sciatica, cauda equina, infection, aortic disease, renal colic, gastrointestinal, as well as other pathologies. ER treatment provided: See below. Diagnostics interpreted by me: court recording monitor: An order for continuous cardiac monitoring was placed and demonstrated NSR, 85 bpm, no ectopy. Laboratory studies: See below Imaging studies: See below Consultation(s): Case was discussed with RIGO Bhatt hospitalist, who will evaluate the patient for admission. HPI: The patient is a pleasant 80-year-old woman with a past medical history of post laminectomy syndrome lumbosacral region with a longstanding history of intractable back pain who who presents to the emergency department for worsening acute on chronic left lumbar pain with radicular symptoms. The patient presents in the setting of being s/p intrathecal pump catheter revision/replacement approximately 1 week ago where she has continued to have ongoing pain despite increasing pump rate prior to discharge and then on outpatient follow-up on Wednesday. The patient and her reported that her pain continues and she is only minimally able to participate in her home physical therapy. They deny any fevers, chills, cough, congestion, GI or symptoms. They report she did move her bowels yesterday without difficulty. The patient and at the bedside report that they were instructed by their pain specialist on Wednesday to present to the emergency department if her pain is not improving by the weekend. They are unsure of what the plan would be if this were to happen. The patient further describes to me that she has had ongoing pain for several years where they initially thought it was due to needing to replace the battery of her pain pump but then recently identified catheter malfunction leading to the hope that a pain pump replacement would address her intractable pain issues. ROS: See above HPI for pertinent positives & negatives. A total of 10 systems reviewed and were otherwise negative. PAST MEDICAL HISTORY:See Below PAST SURGICAL HISTORY:See Below FAMILY HISTORY:See Below SOCIAL HISTORY:See Below HOME MEDICATIONS:See Below ALLERGIES:See Below VITALS:See Below PHYSICAL EXAMINATION: GENERAL: Awake, alert, chronically ill-appearing, in no distress. BMI 45.2. HENT: Normocephalic, atraumatic. Oropharynx with dry mucous membranes and otherwise unremarkable. EYES: Normal conjunctiva. Sclera non-icteric. NECK: Supple. No nuchal rigidity. FROM. No JVD. RESPIRATORY: Clear to auscultation. CARDIAC: Regular rate, normal rhythm. Extremities warm and well perfused. Pulses equal. ABDOMEN: Soft, non-distended. No tenderness to palpation. No rebound or guarding. No masses. Pain pump placement site on anterior abdomen has clean dry dressing intact. RECTAL: Deferred. MUSCULOSKELETAL: Chest examination reveals no tenderness. The back is symmetrical on inspection without obvious abnormality. Mild tenderness of the left lower lumbar region extending distally in the sciatic distribution. There is no CVA tenderness to palpation. LOWER EXTREMITIES: Calves are equal size bilaterally and non-tender. Chronic lymphedema. No discoloration. Range of motion of left lower extremity limited secondary to lumbar pain. Distal PMS intact. NEURO: Normal sensorium. No sensory or motor deficits noted. SKIN: No rash or jaundice noted. Yuri Starr MD Past Med/Surg History Medical History Anxiety disorder Arthritis Asthma Cervical postlaminectomy syndrome Chronic kidney disease F/U DR CUONG DIGGSSWISSHOME COPD (chronic obstructive pulmonary disease) On 2L O2 chronically, does not use any inhalers DDD (degenerative disc disease) Dependence on continuous supplemental oxygen 2L via [place] Diabetes mellitus On insulin 20 units HS Greater trochanteric bursitis of left hip History of COVID-19 DX'D END 06/2020-FEVER, BODY ACHES, COUGH-NOT HOSPITALIZED-SYMPTOMS RESOLVED HTN (hypertension) Hyperlipidemia Nausea and vomiting Pt reports she has not had this for the past 4 months. Obesity Postlaminectomy syndrome of lumbosacral region Presence of intrathecal pump [facility] PAIN MGT-- DILAUDID Sacroiliac joint pain Sleep apnea JUST OXYGEN CONT 2L/IN -- COULD NOT TOLERATE CPAP DUE TO CLAUSTROPHOBIA. Spinal stenosis of thoracolumbar region Stomach ulcer HX Surgical History H/O colonoscopy H/O neck surgery H/O: hysterectomy History of knee replacement, total LEFT AND RIGHT History of open reduction and internal fixation (ORIF) procedure RIGHT FOOT Hx laparoscopic cholecystectomy Hx of tonsillectomy Hx of total shoulder replacement RIGHT AND LEFT Nausea and vomiting after administration of anesthetic agent AND SLOW TO WAKE UP X 1 Previous back surgery Family History Father Diabetes Stomach ulcer Cancer Hypertension Daughter Family history of reaction to anesthesia PONV Social History Smoking Status: Never smoker Second Hand Exposure: Yes; Do You Dip or Chew Tobacco: No; Tobacco Cessation Education Requested by Patient: No Hx Alcohol Use: No Hx Substance Use: No Preferred Language: Japanese Communication Ability: Effective Visual Impairment: No Limitations Hearing Ability: Use of Hearing Aid 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 marital status: Current Living Situation: Spouse current occupational status: retired Other Information That Helps Us Care for You: No Feels Safe at Home: Yes Safety Concerns: Feels Safe At This Time Assistive Devices: Glasses, Hearing Aid - Bilateral, Oxygen - Continuous and Walker Assistive Devices Comment: Hearing Aids Not Present. Allergies Allergies Allergy/AdvReac Type Severity Reaction Status Date / Time codeine Allergy Intermediate SWELLING Verified 12/14/20 15:25 fluticasone Allergy Intermediate swelling Verified 12/14/20 15:25 iodine Allergy Intermediate Rash Verified 12/14/20 15:25 shellfish derived Allergy Intermediate SWELLS Verified 12/14/20 15:25 Sulfa (Sulfonamide Allergy Intermediate SWELLING Verified 12/14/20 15:25 Antibiotics) acetaminophen [From Percocet] Allergy Mild N/V Verified 12/14/20 15:25 adhesive tape Allergy Mild RED AND Verified 12/14/20 15:25 SORE butorphanol Allergy Mild N/V Verified 12/14/20 15:25 lubiprostone [From Amitiza] Allergy Mild Rash Verified 12/14/20 15:25 morphine Allergy Mild SWELLING Verified 12/14/20 15:25 oseltamivir [From Tamiflu] Allergy Mild N/V Verified 12/14/20 15:25 linaclotide [From Linzess] AdvReac Intermediate starry eye Verified 12/14/20 15:25 oxycodone AdvReac Mild AGITATION Verified 12/14/20 15:25 Home Meds Home Medications Medication Instructions Recorded Confirmed clonazepam 1 mg tablet 1 mg PO BID 10/11/19 12/14/20 docusate sodium 100 mg capsule 100 mg PO BID 10/11/19 12/14/20 levomilnacipran 80 mg capsule,24 80 mg PO QAM 10/11/19 12/14/20 hr,extended release levothyroxine 88 mcg capsule 88 mcg PO QAM 10/11/19 12/14/20 melatonin 10 mg tablet 10 mg PO HS 10/11/19 12/14/20 potassium chloride 20 mEq 20 meq PO BID 10/11/19 12/14/20 tablet,extended release spironolactone 25 mg tablet 25 mg PO BID 10/11/19 12/14/20 trazodone 100 mg tablet 100 mg PO HS tab 10/11/19 12/14/20 insulin glargine 100 unit/mL 20 unit SQ HS 12/04/19 12/14/20 subcutaneous solution cholecalciferol (vitamin D3) 25 25 mcg PO QAM 01/26/20 12/14/20 mcg (1,000 unit) capsule furosemide 40 mg tablet 40 mg PO BID 01/26/20 12/14/20 hydroxyzine HCl 25 mg tablet 50 mg PO TID PRN 01/26/20 12/14/20 cyanocobalamin (vitamin B-12) 1,000 mcg IM Q90D 06/07/20 12/14/20 ondansetron HCl [Zofran] 4 mg PO Q8H PRN 06/07/20 12/14/20 docusate sodium [Stool Softener] 100 mg PO QAM 11/14/20 12/14/20 polyethylene glycol 3350 [Miralax] 17 g PO BID 11/14/20 12/14/20 famotidine 20 mg tablet 20 mg PO BID 12/10/20 12/14/20 Previous Rx's Medication Instructions Recorded lubiprostone 8 mcg capsule 8 mcg PO BID #60 cap 11/08/20 esomeprazole magnesium 40 mg 40 mg PO BID 30 Days #60 cap 11/15/20 capsule,delayed release pregabalin 75 mg capsule 75 mg PO BID #60 cap 11/15/20 hydrocodone 7.5 mg-acetaminophen 1 tab PO Q4 PRN #18 tab 12/10/20 325 mg tablet Results & Data (ED) Vital Signs Vital Signs - 24 hr 12/14/20 12:45 12/14/20 14:09 12/14/20 15:16 Temperature 36.3 C L Temperature Source Skin Pulse Rate 85 73 71 Pulse Rate from SpO2 Sensor Pulse Rhythm Regular Pulse Strength Normal Respiratory Rate 20 14 18 Respiratory Effort / Characteristics Non-Labored Spontaneous Respiratory Depth Normal Respiratory Pattern Regular Blood Pressure 129/66 134/77 Blood Pressure Mean 87 96 Pulse Oximetry 99 Oxygen Delivery Method Nasal Cannula Oxygen Flow Rate 2 Sepsis Recent Fever Within 48 Hours No Sepsis New/Unexplained Change in Mental Status N/A Sepsis Action Taken by Nursing No Action Required 12/14/20 15:30 12/14/20 15:31 12/14/20 16:00 Temperature Temperature Source Pulse Rate 69 72 72 Pulse Rate from SpO2 Sensor 69 72 72 Pulse Rhythm Pulse Strength Respiratory Rate 11 L 14 15 Respiratory Effort / Characteristics Respiratory Depth Respiratory Pattern Blood Pressure 154/76 H 143/76 H Blood Pressure Mean 102 98 Pulse Oximetry 99 98 99 Oxygen Delivery Method Oxygen Flow Rate Sepsis Recent Fever Within 48 Hours Sepsis New/Unexplained Change in Mental Status Sepsis Action Taken by Nursing 12/14/20 16:30 12/14/20 17:00 12/14/20 17:30 Temperature Temperature Source Pulse Rate 72 68 68 Pulse Rate from SpO2 Sensor 71 68 Pulse Rhythm Pulse Strength Respiratory Rate 11 L 21 19 Respiratory Effort / Characteristics Respiratory Depth Respiratory Pattern Blood Pressure 136/71 140/73 128/68 Blood Pressure Mean 92 95 88 Pulse Oximetry 100 98 Oxygen Delivery Method Oxygen Flow Rate Sepsis Recent Fever Within 48 Hours Sepsis New/Unexplained Change in Mental Status Sepsis Action Taken by Nursing 12/14/20 17:31 12/14/20 18:00 12/14/20 18:01 Temperature Temperature Source Pulse Rate 66 69 66 Pulse Rate from SpO2 Sensor Pulse Rhythm Pulse Strength Respiratory Rate 16 14 16 Respiratory Effort / Characteristics Respiratory Depth Respiratory Pattern Blood Pressure 121/89 Blood Pressure Mean 99 Pulse Oximetry Oxygen Delivery Method Oxygen Flow Rate Sepsis Recent Fever Within 48 Hours Sepsis New/Unexplained Change in Mental Status Sepsis Action Taken by Nursing Laboratory Data Attestation: I reviewed the patient's lab results. Result diagrams: 12/14/20 14:59 12/14/20 14:59 Lab Results 12/14/20 12/14/20 12/14/20 Range/Units 13:58 13:58 14:00 WBC (4.8-10.8) K/uL RBC (4.2-5.4) M/uL Hgb (12.0-16.0) g/dL Hct (37-47) % MCV (80-100) fL MCH (25-34) pg MCHC (32-36) g/dL RDW Std Deviation (36.4-46.3) fL RDW Coeff of Kindra (11.5-14.5) % Plt Count (130-400) K/uL MPV (7.4-10.4) fL Immature Gran % (Auto) % Neut % (Auto) % Lymph % (Auto) % [place] % (Auto) % Eos % (Auto) % Baso % (Auto) % Neut # (Auto) (1.4-6.5) K/uL Lymph # (Auto) (1.2-3.4) K/uL [place] # (Auto) (0.11-0.59) K/uL Eos # (Auto) (0-0.5) K/uL Baso # (Auto) (0-0.2) K/uL Immature Gran # (Auto) (0.00-0.02) K/uL Sodium (136-145) mmol/L Potassium (3.5-5.1) mmol/L Chloride (98-107) mmol/L Carbon Dioxide (21-32) mmol/L Anion Gap (3-11) BUN (7-18) mg/dl Creatinine (0.6-1.2) mg/dl Est Cr Clr Drug Dosing ml/min Est GFR ( Amer) Est GFR (Non-Af Amer) BUN/Creatinine Ratio (10-20) Glucose (70-99) mg/dl Calcium (8.5-10.1) mg/dl Phosphorus (2.5-4.9) mg/dl Magnesium (1.8-2.4) mg/dl Total Bilirubin (0.2-1) mg/dl AST (15-37) U/L ALT (12-78) U/L Alkaline Phosphatase (45-117) U/L Total Protein (6.4-8.2) gm/dl Albumin (3.4-5.0) gm/dl Globulin (2.5-4.0) gm/dl Albumin/Globulin Ratio (0.9-2) Urine Color Yellow Urine Appearance Clear (Clear) Urine pH 6.5 (4.5-7.5) Ur Specific [place] 1.018 (1.000-1.030) Urine Protein Negative (Negative) Urine Glucose (UA) Negative (Negative) Urine Ketones Negative (Negative) Urine Blood Trace H (Negative) Urine Nitrite Negative (Negative) Urine Bilirubin Negative (Negative) Urine Urobilinogen Negative (Negative) Ur Leukocyte Esterase 2+ H (Negative) Urine WBC (Auto) 10-30 H (0-5) /hpf Urine RBC (Auto) 0-4 (0-4) /hpf U Hyaline Cast (Auto) 1-5 (0-5) /lpf U Epithel Cells (Auto) >30 H (0-5) /lpf Urine Bacteria (Auto) Negative (Negative) Ur Renal Epithelial Cell 5-10 H (0-5) /lpf COVID-19 Eval Order CovFluRsv at [facility] SARS-CoV-2 (PCR) NEGATIVE (Negative) Influenza Type A (PCR) Negative (Neg) Influenza Type B (PCR) Negative (Neg) RSV (RT-PCR) Negative (Neg) 12/14/20 12/14/20 Range/Units 14:59 14:59 WBC 8.27 (4.8-10.8) K/uL RBC 4.51 (4.2-5.4) M/uL Hgb 13.0 (12.0-16.0) g/dL Hct 41.0 (37-47) % MCV 90.9 (80-100) fL MCH 28.8 (25-34) pg MCHC 31.7 L (32-36) g/dL RDW Std Deviation 42.9 (36.4-46.3) fL RDW Coeff of Kindra 13.0 (11.5-14.5) % Plt Count 281 (130-400) K/uL MPV 9.7 (7.4-10.4) fL Immature Gran % (Auto) 0.2 % Neut % (Auto) 60.1 % Lymph % (Auto) 28.2 % [place] % (Auto) 7.5 % Eos % (Auto) 3.6 % Baso % (Auto) 0.4 % Neut # (Auto) 4.97 (1.4-6.5) K/uL Lymph # (Auto) 2.33 (1.2-3.4) K/uL [place] # (Auto) 0.62 H (0.11-0.59) K/uL Eos # (Auto) 0.30 (0-0.5) K/uL Baso # (Auto) 0.03 (0-0.2) K/uL Immature Gran # (Auto) 0.02 (0.00-0.02) K/uL Sodium 135 L (136-145) mmol/L Potassium 4.1 (3.5-5.1) mmol/L Chloride 98 (98-107) mmol/L Carbon Dioxide 36 H (21-32) mmol/L Anion Gap 1.0 L (3-11) BUN 21 H (7-18) mg/dl Creatinine 1.25 H (0.6-1.2) mg/dl Est Cr Clr Drug Dosing 38.6 ml/min Est GFR ( Amer) 46.7 Est GFR (Non-Af Amer) 40.3 BUN/Creatinine Ratio 16.9 (10-20) Glucose 181 H (70-99) mg/dl Calcium 9.2 (8.5-10.1) mg/dl Phosphorus 2.7 (2.5-4.9) mg/dl Magnesium 2.4 (1.8-2.4) mg/dl Total Bilirubin 0.2 (0.2-1) mg/dl AST 10 L (15-37) U/L ALT 24 (12-78) U/L Alkaline Phosphatase 128 H (45-117) U/L Total Protein 7.5 (6.4-8.2) gm/dl Albumin 3.6 (3.4-5.0) gm/dl Globulin 3.9 (2.5-4.0) gm/dl Albumin/Globulin Ratio 0.9 (0.9-2) Urine Color Urine Appearance (Clear) Urine pH (4.5-7.5) Ur Specific [place] (1.000-1.030) Urine Protein (Negative) Urine Glucose (UA) (Negative) Urine Ketones (Negative) Urine Blood (Negative) Urine Nitrite (Negative) Urine Bilirubin (Negative) Urine Urobilinogen (Negative) Ur Leukocyte Esterase (Negative) Urine WBC (Auto) (0-5) /hpf Urine RBC (Auto) (0-4) /hpf U Hyaline Cast (Auto) (0-5) /lpf U Epithel Cells (Auto) (0-5) /lpf Urine Bacteria (Auto) (Negative) Ur Renal Epithelial Cell (0-5) /lpf COVID-19 Eval Order SARS-CoV-2 (PCR) (Negative) Influenza Type A (PCR) (Neg) Influenza Type B (PCR) (Neg) RSV (RT-PCR) (Neg) Administered Medications Hydrocodone Bitart/Acetaminophen (Hydrocodone/Acetamophen 5/325mg Tab) 1 tab PO Q6 PRN PRN Reason: Pain Stop: 12/28/20 19:43 Last Admin: 12/14/20 20:57 Dose: 1 tab Documented by: [id number] Clonazepam (Clonazepam 1 Mg Tab) 1 mg PO BID [facility] Stop: 01/13/21 20:59 Last Admin: 12/14/20 20:41 Dose: 1 mg Documented by: [id number] Docusate Sodium (Docusate Sodium 100 Mg Cap) 100 mg PO BID [place] Stop: 01/13/21 20:59 Last Admin: 12/14/20 20:41 Dose: 100 mg Documented by: [id number] Famotidine (Famotidine 20 Mg Tab) 20 mg PO BID [place] Stop: 01/13/21 20:59 Last Admin: 12/14/20 20:41 Dose: 20 mg Documented by: [id number] Furosemide (Furosemide 40 Mg Tab) 40 mg PO BID17 [place] Stop: 01/13/21 20:59 Last Admin: 12/14/20 20:42 Dose: 40 mg Documented by: [id number] Heparin Sodium (Porcine) (Heparin Sod 5,000 Unit/0.5 Ml Vial) 5,000 units SQ Q12 [facility] Stop: 01/13/21 20:59 Last Admin: 12/14/20 20:42 Dose: 5,000 units Documented by: [id number] Insulin Glargine (Insulin Glargine Solostar 100 Units/Ml 3 Ml Pen) 20 units SQ HS [facility] Stop: 01/13/21 20:59 Last Admin: 12/14/20 20:42 Dose: 20 units Documented by: [id number] Cosigned by: [id number] Lidocaine (Lidocaine 5% 1 Patch) 1 patch TD QAM [facility] Stop: 01/13/21 16:59 Last Admin: 12/14/20 18:25 Dose: 1 patch Documented by: [id number] Melatonin (Melatonin 3 Mg Tab) 3 mg PO HSZ [facility] Stop: 01/13/21 21:59 Last Admin: 12/14/20 20:58 Dose: 3 mg Documented by: [id number] Miscellaneous (Remove Lidoderm Patch) 1 ea N/A DAILY@2100 [facility] Stop: 01/13/21 20:59 Last Admin: 12/14/20 20:45 Dose: 1 ea Documented by: [id number] Pantoprazole Sodium (Pantoprazole 40 Mg Tab) 40 mg PO BID [facility] Stop: 01/13/21 20:59 Last Admin: 12/14/20 20:44 Dose: 40 mg Documented by: [id number] Polyethylene Glycol (Polyethylene (Miralax) 17 Gm Pack) 17 gm PO BID [facility] Stop: 01/13/21 20:59 Last Admin: 12/14/20 20:44 Dose: 17 gm Documented by: [id number] Potassium Chloride (Potassium Chloride Crtab 20 Meq Tabcr) 20 meq PO BID [facility] Stop: 01/13/21 20:59 Last Admin: 12/14/20 20:44 Dose: 20 meq Documented by: [id number] Pregabalin (Pregabalin 75 Mg Cap) 75 mg PO BID [facility] Stop: 01/13/21 20:59 Last Admin: 12/14/20 20:53 Dose: 75 mg Documented by: [id number] Spironolactone (Spironolactone 25 Mg Tab) 25 mg PO BID17 [facility] Stop: 01/13/21 20:59 Last Admin: 12/14/20 20:45 Dose: 25 mg Documented by: [id number] Trazodone HCl (Trazodone Hcl 100 Mg Tab) 100 mg PO HS [facility] Stop: 01/13/21 20:59 Last Admin: 12/14/20 20:45 Dose: 100 mg Documented by: [id number] Discontinued Medications Hydrocodone Bitart/Acetaminophen (Hydrocodone/Acetaminophen 7.5/325mg Tab) 1 tab PO Q4 PRN PRN Reason: pain Stop: 12/28/20 16:45 Last Admin: 12/14/20 17:00 Dose: 1 tab Documented by: [id number] Hydromorphone HCl (Hydromorphone Inj 0.5 Mg/0.5 Ml Syr) 0.5 mg IV NOW STA Stop: 12/14/20 13:36 Last Admin: 12/14/20 15:12 Dose: 0.5 mg Documented by: [id number] Sodium Chloride (Nss) 500 mls @ 999 mls/hr IV .Q31M ONE Stop: 12/14/20 13:58 Last Infusion: 12/14/20 18:27 Dose: 0 mls/hr Documented by: [id number] Admin: 12/14/20 15:13 Dose: 999 mls/hr Documented by: [id number] Acetaminophen (Ofirmev) 1,000 mg in 100 mls @ 400 mls/hr IV NOW STA Stop: 12/14/20 13:42 Last Infusion: 12/14/20 15:40 Dose: 0 mls/hr Documented by: [id number] Admin: 12/14/20 15:12 Dose: 400 mls/hr Documented by: [id number] Ketorolac Tromethamine (Ketorolac Tromethamine 15 Mg/Ml Vial) 15 mg IV NOW ONE Stop: 12/14/20 16:49 Last Admin: 12/14/20 17:15 Dose: 15 mg Documented by: [id number] Imaging Data Radiologist's Impression: Abdomen/Pelvis CT 12/14/20 13:28 CT SCAN OF THE ABDOMEN AND PELVIS WITHOUT IV CONTRAST CLINICAL HISTORY: Low back pain. COMPARISON STUDY: Abdominal CT dated 06/07/2020. TECHNIQUE: CT scan of the abdomen and pelvis is performed from the lung bases to the proximal femora. Images are reviewed in the axial, sagittal, and coronal planes. IV contrast was not administered for this examination. A dose lowering technique was utilized adhering to the principles of ALARA. CT DOSE: 1368.15 mGy.cm FINDINGS: Lung bases: The heart is top normal in size and without pericardial effusion. There are coronary artery calcifications. A small hiatal hernia is noted. The lung bases are clear noting bibasilar scarring/atelectasis. Liver: The unenhanced liver is normal in size, contour, and attenuation. There is no intrahepatic biliary ductal dilatation. Gallbladder: Surgically absent. Spleen: Normal in size and attenuation. Pancreas: The unenhanced pancreas is atrophic and grossly unremarkable. Adrenal glands: Unremarkable. Kidneys: The unenhanced kidneys demonstrate cortical atrophy and are without hydronephrosis. There is a punctate nonobstructing right renal calculus. No left renal calculi are identified. Small simple and complex/hyperdense renal cysts measure up to 11 mm. These are unchanged from previous. Abdominal vasculature: The abdominal aorta is normal in course and caliber noting mild to moderate atherosclerotic calcification. Postoperative change is noted involving the inferior vena cava. Bowel: There is mild to moderate colonic fecal retention. No bowel obstruction is seen. The appendix is not identified and reported surgically absent Peritoneum: There is no intraperitoneal free air or abdominal ascites. There is diastases of the rectus musculature with laxity of the ventral abdominal wall. Lymphadenopathy: None. Pelvic viscera: The bladder is normal as visualized. The uterus is surgically absent. No adnexal lesion is seen. Skeletal structures: The skeletal structures are osteopenic. Extensive postlaminectomy change is noted throughout the lumbar spine. There are chronic compression deformities of T11 and T12 with previous vertebroplasty at T12. Spondylotic change is noted throughout the lumbar spine. No lytic or blastic lesions are seen. Postoperative change is partially visualized in the right proximal femur. Intrathecal device is present within the left lower quadrant abdominal wall. Catheters enter the central canal in the upper lumbar region. A bone graft donor site is suggested in the left ilium. There is fatty atrophy of the paraspinous musculature. IMPRESSION: 1. No acute infectious or inflammatory findings are identified in the abdomen or pelvis. 2. Punctate nonobstructing right renal calculus. 3. Extensive chronic, postoperative, and degenerative change throughout the lumbar spine is similar to prior studies. No acute bony abnormality is seen. 4. Additional findings as above. ACT 112: Negative or not required by law. Electronically signed by: Bunny Garland M.D. 12/14/2020 2:51 PM Discharge Plan Visit Data Chief Complaint: Back Injury/Pain Stated Complaint: BACK PAIN LEG PAIN ED Provider: Yuri Starr Discharge Problem: Postlaminectomy syndrome of lumbosacral region, Presence of intrathecal pump, Intractable back pain Patient Disposition: Admitted As Inpatient Discharge Instructions Interventions: ED Discharge Assessment Last Done: 12/14/20 19:25
[2020-12-14] MEDS: LIDOCAINE 5% 1 PATCH TD SCH (18:25)
[2020-12-14] MEDS ORDERED: POLYETHYLENE (MIRALAX) 17 GM PACK PO PRN (19:44)
[2020-12-14] MEDS ORDERED: hydrOXYzine HCl 25 MG TAB PO PRN (19:44)
[2020-12-14] MEDS: clonazePAM 1 MG TAB PO SCH (20:41)
[2020-12-14] MEDS: DOCUSATE SODIUM 100 MG CAP PO SCH (20:41)
[2020-12-14] MEDS: FAMOTIDINE 20 MG TAB PO SCH (20:41)
[2020-12-14] MEDS: INSULIN GLARGINE SOLOSTAR 100 UNITS/ML 3 ML PEN SQ SCH (20:42)
[2020-12-14] MEDS: HEPARIN SOD 5,000 UNIT/0.5 ML VIAL SQ SCH (20:42)
[2020-12-14] MEDS: FUROSEMIDE 40 MG TAB PO SCH (20:42)
[2020-12-14] MEDS: POTASSIUM CHLORIDE CRTAB 20 MEQ TABCR PO SCH (20:44)
[2020-12-14] MEDS: POLYETHYLENE (MIRALAX) 17 GM PACK PO SCH (20:44)
[2020-12-14] MEDS: PANTOprazole 40 MG TAB PO SCH (20:44)
[2020-12-14] MEDS: traZODone HCL 100 MG TAB PO SCH (20:45)
[2020-12-14] MEDS: SPIRONOLACTONE 25 MG TAB PO SCH (20:45)
[2020-12-14] MEDS: PREGABALIN 75 MG CAP PO SCH (20:53)
[2020-12-14] MEDS: HYDROCODONE/ACETAMOPHEN 5/325MG TAB PO PRN (20:57)
[2020-12-14] MEDS: MELATONIN 3 MG TAB PO SCH (20:58)
[2020-12-14] MEDS ORDERED: LUBIPROSTONE 8 MCG PO SCH (21:00)
[2020-12-15] MEDS: HYDROCODONE/ACETAMOPHEN 5/325MG TAB PO PRN ×2 (03:10→13:40)
[2020-12-15] MEDS: LEVOTHYROXINE SODIUM 88 MCG TABLET PO SCH (05:33)
[2020-12-15] MEDS ORDERED: KETOROLAC TROMETHAMINE 10 MG TABLET PO STA (06:31)
[2020-12-15 07:23] LABS: Basophils # (auto) 0.02 K/uL (0-0.2); Basophils % (auto) 0.3 %; Eosinophils # (auto) 0.31 K/uL (0-0.5); Eosinophils % (auto) 4.5 %; Hemoglobin 11.7 g/dL (12.0-16.0); Immature Granulocytes # (auto) 0.03 K/uL (0.00-0.02); Immature Granulocytes % (auto) 0.4 %; Lymphocytes % (auto) 33.3 %; Mean Corpuscular Hemoglobin 28.7 pg (25-34); Mean Corpuscular Hgb Conc 31.6 g/dL (32-36); Mean Corpuscular Volume 90.7 fL (80-100); Monocytes # (auto) 0.44 K/uL (0.11-0.59); Monocytes % (auto) 6.4 %; Neutrophils % (auto) 55.1 %; Platelet Count 295 K/uL (130-400); RDW Coefficient of Variation 13.3 % (11.5-14.5); RDW Standard Deviation 43.8 fL (36.4-46.3); Red Blood Count 4.08 M/uL (4.2-5.4)
[2020-12-15 07:51] LABS: BUN Creatinine Ratio 20.9 (10-20); Creatinine Clr Calc Pharmacy 44.6 ml/min; Est GFR (African American) 50.1; Est GFR (Non-African American) 43.2; Magnesium 2.4 mg/dl (1.8-2.4); Potassium 4.5 mmol/L (3.5-5.1)
[2020-12-15] MEDS: SPIRONOLACTONE 25 MG TAB PO SCH ×2 (07:51→17:58)
[2020-12-15] MEDS: CHOLECALCIFEROL 1,000 UNITS 25 MCG TAB PO SCH (07:51)
[2020-12-15] MEDS: PANTOprazole 40 MG TAB PO SCH ×2 (07:52→19:53)
[2020-12-15] MEDS: POTASSIUM CHLORIDE CRTAB 20 MEQ TABCR PO SCH ×2 (07:52→19:55)
[2020-12-15] MEDS: FAMOTIDINE 20 MG TAB PO SCH ×2 (07:52→19:54)
[2020-12-15] MEDS: FUROSEMIDE 40 MG TAB PO SCH ×2 (07:52→17:58)
[2020-12-15] MEDS: DOCUSATE SODIUM 100 MG CAP PO SCH ×2 (07:52→19:52)
[2020-12-15] MEDS: POLYETHYLENE (MIRALAX) 17 GM PACK PO SCH ×2 (07:53→19:54)
[2020-12-15] MEDS: HEPARIN SOD 5,000 UNIT/0.5 ML VIAL SQ SCH ×2 (07:53→19:55)
[2020-12-15] MEDS: clonazePAM 1 MG TAB PO SCH ×2 (07:54→19:52)
[2020-12-15] MEDS: LIDOCAINE 5% 1 PATCH TD SCH (07:56)
[2020-12-15] MEDS: PREGABALIN 75 MG CAP PO SCH ×2 (07:58→19:52)
[2020-12-15] MEDS ORDERED: DOCUSATE SODIUM 100 MG CAP PO SCH (09:00)
--- NOTE | 2020-12-15 16:27 | Hospitalist Progress Note ---
Date of Service December 15, 2020 Assessment & Plan (1) Sacroiliac joint pain: Patient current exam and pain location is mostly consistent with sciatic impingement, with also SI joint tenderness on right and left side - Patient states pain 10/10- no facial grimace, HR 70's, normotensive, normal respiratory rate upon admission - reports no change after IV Dilaudid given in ER - Toradol 15mg IV x1- was given - Lidoderm patch started and hydrocodone po prn given Pain already much improved, but is quite drowsy - Appreciate pain management consult and further evaluation of treatment options-awaiting consult on Wednesday PT/OT patricia appreciated-recommend home with home health (2) Chronic back pain: As above- intrathecal pain pump with hydromorphone 2mg/ml - Continue her hydrocodone 5/325 1 tab PO q4-6 hrs PRN - Continue her pregabalin 75mg PO BID- for her neuropathy as well (3) Presence of intrathecal pump: Recently changed- pump report 12/10/20- per pain managment (4) Dependence on continuous supplemental oxygen: likely component of obesity hypoventilation syndrome, no ABG- no PFTs- chronically elevated HCO3 supports - not on CPAP at home, has never had a sleep study performed, would beneficial as outpatient with her chronic pain medications. - She also has COPD listed on her medical problems but likely this is restrictive in nature- she is on no RADHA, LABA/LAMA - If needed can add Combivent or albuterol single agent. (5) Obesity: BMI 52 desperately needs weight loss program, calorie restriction (6) HTN (hypertension): BPs controlled Continue Lasix Continue Spironolactone (7) Diabetes mellitus: Moderately controlled with recent A1C 7.9% glucose here is controlled - Continue Lantus 20 units hs from home add on SSI Novolog (8) DDD (degenerative disc disease): As above, chronic (9) Sleep apnea: continue 2LNC continuous does not tolerate CPAP (10) GERD (gastroesophageal reflux disease): continue pepcid and PPI bid (11) COPD (chronic obstructive pulmonary disease): no acute issues not on maintenance inhalers and no PFTs available (12) Chronic kidney disease: CKD stage 3 tailer out at baseline -Avoid nephrotoxins -renally dose meds when appropriate (13) Chronic constipation: continue docusate miralax bid (14) Anxiety disorder: is on high doses of clonazepam 1mg po bid, along with trazadone 100 qhs, hydroxyzine, and Fetzima (which needs to br brought in from home) is drowsy when I saw her caution with so many ASSOCIATE PROFESSOR [employer]OLOGY depressing meds in morbidly obese patient with likely obesity hypovent syndrome, especially with hydrocodone po use recommend cutting down on clonazepam dose as outpt slowly (15) DVT prophylaxis: SQ Heparin Dispo-await Pain Management consult on Wednesday, likely dc to home with home health after that if pain improved Admission and Anticipated Discharge Date Admission Date: December 14, 2020 Subjective Pt sleeping soundly when I came in and had to gently sternal rub her to get her to wake up after loud verbal stimulus and gentle tactile stimulus did not succeed. She had recently taken the hydrocodone tab and currently her pain was a 1/10 in severity. RN reports pt was OOB and ambulated to bedside commode and to chair. Pt denies CP or SOB. She did frequently fall asleep while I was talking to her but each time woke back up easily. She does not feel ready to go home and wants to stay till Wednesday to see her Pain Management MD. Review of Systems Review of Systems: All systems reviewed & are unremarkable except as noted in HPI & below Physical Exam Constitutional: WD/WN, vitals as above + morbidly obese Eyes: + anicteric sclerae Neck: trachea midline, no thyromegaly Respiratory: normal respiratory effort, lungs clear to auscultation Cardiovascular: RRR, no murmur, no edema Chest (Breasts): Chest: normal inspection of chest Gastrointestinal (Abdomen): normal bowel sounds, soft, nontender, no hepatosplenomegaly (with binder in place) Musculoskeletal: Extremities: extremities normal to inspection; no cyanosis and no clubbing Skin: no rashes, warm and dry Neurologic: moves all extremities and awake (wakes up but is drowsy); no focal motor deficits Lymphatic: no lymphedema Results & Data Results & Data ([facility]) Vital Signs (Past 12 Hours) Vital Signs Temp Pulse Resp BP Pulse Ox 12/15/20 16:05 36.7 C 67 18 115/76 96 12/15/20 07:28 36.3 C L 65 16 117/73 100 Laboratory Results 12/15/20 12/15/2012/15/21 Range/Units 20:55 17:10 12:11 WBC (4.8-10.8) K/uL RBC (4.2-5.4) M/uL Hgb (12.0-16.0) g/dL Hct (37-47) % MCV (80-100) fL MCH (25-34) pg MCHC (32-36) g/dL RDW Std Deviation (36.4-46.3) fL RDW Coeff of Kindra (11.5-14.5) % Plt Count (130-400) K/uL MPV (7.4-10.4) fL Immature Gran % (Auto) % Neut % (Auto) % Lymph % (Auto) % [place] % (Auto) % Eos % (Auto) % Baso % (Auto) % Neut # (Auto) (1.4-6.5) K/uL Lymph # (Auto) (1.2-3.4) K/uL [place] # (Auto) (0.11-0.59) K/uL Eos # (Auto) (0-0.5) K/uL Baso # (Auto) (0-0.2) K/uL Immature Gran # (Auto) (0.00-0.02) K/uL Sodium (136-145) mmol/L Potassium (3.5-5.1) mmol/L Chloride (98-107) mmol/L Carbon Dioxide (21-32) mmol/L Anion Gap (3-11) BUN (7-18) mg/dl Creatinine (0.6-1.2) mg/dl Est Cr Clr Drug Dosing ml/min Est GFR ( Amer) Est GFR (Non-Af Amer) BUN/Creatinine Ratio (10-20) Glucose (70-99) mg/dl POC Glucose 163 H 164 H 169 H (70-99) mg/dl Calcium (8.5-10.1) mg/dl Magnesium (1.8-2.4) mg/dl Specimen Hemolysis 12/15/20 12/15/20 12/15/20 Range/Units 08:16 06:52 06:52 WBC 6.90 (4.8-10.8) K/uL RBC 4.08 L (4.2-5.4) M/uL Hgb 11.7 L (12.0-16.0) g/dL Hct 37.0 (37-47) % MCV 90.7 (80-100) fL MCH 28.7 (25-34) pg MCHC 31.6 L (32-36) g/dL RDW Std Deviation 43.8 (36.4-46.3) fL RDW Coeff of Kindra 13.3 (11.5-14.5) % Plt Count 295 (130-400) K/uL MPV 10.0 (7.4-10.4) fL Immature Gran % (Auto) 0.4 % Neut % (Auto) 55.1 % Lymph % (Auto) 33.3 % [place] % (Auto) 6.4 % Eos % (Auto) 4.5 % Baso % (Auto) 0.3 % Neut # (Auto) 3.80 (1.4-6.5) K/uL Lymph # (Auto) 2.30 (1.2-3.4) K/uL [place] # (Auto) 0.44 (0.11-0.59) K/uL Eos # (Auto) 0.31 (0-0.5) K/uL Baso # (Auto) 0.02 (0-0.2) K/uL Immature Gran # (Auto) 0.03 H (0.00-0.02) K/uL Sodium 139 (136-145) mmol/L Potassium 4.5 (3.5-5.1) mmol/L Chloride 101 (98-107) mmol/L Carbon Dioxide 36 H (21-32) mmol/L Anion Gap 2.0 L (3-11) BUN 25 H (7-18) mg/dl Creatinine 1.18 (0.6-1.2) mg/dl Est Cr Clr Drug Dosing 44.6 ml/min Est GFR ( Amer) 50.1 Est GFR (Non-Af Amer) 43.2 BUN/Creatinine Ratio 20.9 H (10-20) Glucose 117 H (70-99) mg/dl POC Glucose 105 H (70-99) mg/dl Calcium 9.0 (8.5-10.1) mg/dl Magnesium 2.4 (1.8-2.4) mg/dl Specimen Hemolysis PG Care Time/CCT Total # of Minutes Spent Total Time Spent with Patient: Total time spent is greater than 50% in coordination of care (as documented) at patient's floor/unit and/or counseling patient: Coding Level of Care Code 98377 Subseq Hosp Care Lvl 2 Diagnoses Sacroiliac joint pain M53.3 Chronic back pain M54.42; G89.29 Back pain laterality: unspecified Back pain location: low back pain Sciatica laterality: sciatica of left side Sciatica presence: with sciatica Presence of intrathecal pump Z97.8 Dependence on continuous supplemental oxygen Z99.81 Obesity E66.01; Z68.41 Body mass index: BMI 40.0-44.9 Obesity classification: adult class 3 (BMI >= 40) Obesity type: due to excess calories Serious obesity comorbidity presence: with serious comorbidity HTN (hypertension) I10 Hypertension type: essential hypertension Diabetes mellitus E11.69; Z79.4 Diabetes mellitus complication status: with other specified complication Diabetes mellitus assisted insulin use: with assisted use Diabetes mellitus type: type 2 DDD (degenerative disc disease) M51.37 Spinal region: lumbosacral Sleep apnea G47.30 GERD (gastroesophageal reflux disease) K21.9 COPD (chronic obstructive pulmonary disease) J44.9 Chronic kidney disease N18.9 Chronic constipation K59.09 Anxiety disorder F41.9 DVT prophylaxis Z29.9 (1) Diabetes mellitus Diabetes mellitus complication status: with other specified complication Diabetes mellitus assisted insulin use: with oil heaterman use Diabetes mellitus type: type 2 Qualified Code(s): E11.69 - Type 2 diabetes mellitus with other specified complication; Z79.4 - FDC (current) use of insulin (2) DDD (degenerative disc disease) Spinal region: lumbosacral Qualified Code(s): M51.37 - Other intervertebral disc degeneration, lumbosacral region (3) Chronic back pain Back pain laterality: unspecified Back pain location: low back pain Sciatica laterality: sciatica of left side Sciatica presence: with sciatica Qualified Code(s): M54.42 - Lumbago with sciatica, left side; G89.29 - Other chronic pain (4) HTN (hypertension) Hypertension type: essential hypertension Qualified Code(s): I10 - Essential (primary) hypertension (5) Obesity Body mass index: BMI 40.0-44.9 Obesity classification: adult class 3 (BMI >= 40) Obesity type: due to excess calories Serious obesity comorbidity presence: with serious comorbidity Qualified Code(s): E66.01 - Morbid (severe) obesity due to excess calories; Z68.41 - Body mass index [BMI]40.0-44.9, adult
[2020-12-15] MEDS: traZODone HCL 100 MG TAB PO SCH (19:52)
[2020-12-15] MEDS: INSULIN GLARGINE SOLOSTAR 100 UNITS/ML 3 ML PEN SQ SCH (21:01)
[2020-12-15] MEDS: MELATONIN 3 MG TAB PO SCH (21:03)
[2020-12-16] MEDS ORDERED: DEXTROSE 50% 50 ML SYRINGE IV PRN (00:56)
[2020-12-16] MEDS ORDERED: CARBOHYDRATES FOR HYPOGLYCEMIA PO PRN (00:56)
[2020-12-16] MEDS ORDERED: GLUCOSE 40% GEL 15 GM TUBE PO PRN (00:56)
[2020-12-16] MEDS ORDERED: GLUCAGON FOR INJ 1 MG VIAL SQ PRN (00:56)
[2020-12-16] MEDS ORDERED: GLUCOSE 10 TABS/TUBE PO PRN (00:56)
[2020-12-16] MEDS: LEVOTHYROXINE SODIUM 88 MCG TABLET PO SCH (06:12)
[2020-12-16] MEDS ORDERED: PREGABALIN 25 MG CAP PO SCH (09:00)
[2020-12-16] MEDS ORDERED: DULoxetine HCL 20 MG CAP PO SCH (09:00)
[2020-12-16] MEDS: FUROSEMIDE 40 MG TAB PO SCH (09:03)
[2020-12-16] MEDS: SPIRONOLACTONE 25 MG TAB PO SCH (09:04)
[2020-12-16] MEDS: DOCUSATE SODIUM 100 MG CAP PO SCH (09:04)
[2020-12-16] MEDS: CHOLECALCIFEROL 1,000 UNITS 25 MCG TAB PO SCH (09:04)
[2020-12-16] MEDS: PANTOprazole 40 MG TAB PO SCH (09:04)
[2020-12-16] MEDS: FAMOTIDINE 20 MG TAB PO SCH (09:05)
[2020-12-16] MEDS: POLYETHYLENE (MIRALAX) 17 GM PACK PO SCH (09:05)
[2020-12-16] MEDS: POTASSIUM CHLORIDE CRTAB 20 MEQ TABCR PO SCH (09:05)
[2020-12-16] MEDS: HEPARIN SOD 5,000 UNIT/0.5 ML VIAL SQ SCH (09:06)
[2020-12-16] MEDS: LIDOCAINE 5% 1 PATCH TD SCH (09:06)
--- NOTE | 2020-12-16 10:07 | Pain Management Consultation ---
Date of Consultation December 16, 2020 Assessment & Plan (1) Greater trochanteric bursitis of left hip: 1. Had a discussion with the patient today about expectations of pain control with an intrathecal pump. We discussed that the goal of an intrathecal pump is not to ensure 0 out of 10 pain at all times. The goal of her intrathecal pump is to make pain tolerable during activities of daily living. We discussed that increasing her opiates at this time given the fact that she is requiring sternal rubs for arousal was not advisable. We discussed the dangers and ramifications of opiate overdose. 2. I again stressed that I believe her current acute #1 pain generator is her left greater trochanteric bursa. Due to her recent surgical intervention I continue to defer oral steroid or steroid injection at this time, but can consider injection after she has completed healing of her 2 wounds. I recommend reevaluation as an outpatient in the pain management office in 3 weeks to determine if steroids would be advisable at that time. Our office will call to make this appointment. 3. Recommend continuation of Lidoderm patch, current dosing of hydrocodone 7.5/325 mg up to twice daily as needed breakthrough pain. 4. Recommend addition of Cymbalta 20 mg p.o. every morning and increasing her Lyrica to 100 mg p.o. twice daily for adjuvant pain relief. 5. Current dosing of her intrathecal pump will remain at hydromorphone 0.5808 mg/day. The patient is scheduled for intrathecal pump refill prior to her low reservoir alarm date of 04/13/2021. 6. Recommend physical therapy for overall deconditioning. 7. Patient will follow up in 3weeks as an outpatient for consideration of a le ft greater trochanteric bursa injection. (2) Cervical postlaminectomy syndrome: (3) Postlaminectomy syndrome of lumbosacral region: (4) Presence of intrathecal pump: (5) Sleep apnea: (6) Obesity: Body mass index: BMI 40.0-44.9 Obesity classification: adult class 3 (BMI >= 40) Obesity type: due to excess calories Serious obesity comorbidity presence: with serious comorbidity Qualified Code(s): E66.01 - Morbid (severe) obesity due to excess calories; Z68.41 - Body mass index [BMI]40.0-44.9, adult History of Present Illness Attending Physician: Efe Elmore MD History of Present Illness 80-year-old white female with a history of cervical and lumbar postlaminectomy syndrome and chronic intractable pain as well as opiate dependence who presented to the [facility] emergency room on 12/14/2020 with complaints of intractable 10 out of 10 pain. She had been evaluated at the [facility] pain management office on 12/10/2020 and had a 10% increase in intrathecal dose. Her intrathecal dose is currently hydromorphone 0.5808 mg/day. She was diagnosed with left-sided trochanteric bursitis and advised that she could not have steroid injections until she had healed from her intrathecal catheter revision which had been performed the week before. Thus she was recommended to utilize her typical hydrocodone dosing of 7.5/3 25 mg 1 every 4 hours as needed and utilize Voltaren gel. She reports that her chronic low back pain has been greatly improved with her functional drug ministration system and catheter but states she has a new pain over her left greater trochanter. This cannot pain can radiate between 7 and 10 out of 10 sharp stabbing. Pain on examination appears to be mostly over her greater trochanter though some left sacroiliac joint involvement may be present. She admits to deconditioning and requiring assistance for typical activities o f daily living. She reports that she has home health aides and therapists who come to her house to help her with conditioning and care. Patient states she felt that she would have "0 out of 10 pain after her pump was fixed." She reports minimal pain at incision sites. During this hospitalization she has been utilizing hydrocodone 7.5/325 mg along with a Lidoderm patch. She has been very somnolent at times requiring sternal rub for arousal. No bowel or bladder incontinence, change in motor weakness, fever currently. Allergies Allergy/AdvReac Type Severity Reaction Status Date / Time codeine Allergy Intermediate SWELLING Verified 12/14/20 15:25 fluticasone Allergy Intermediate swelling Verified 12/14/20 15:25 iodine Allergy Intermediate Rash Verified 12/14/20 15:25 shellfish derived Allergy Intermediate SWELLS Verified 12/14/20 15:25 Sulfa (Sulfonamide Allergy Intermediate SWELLING Verified 12/14/20 15:25 Antibiotics) acetaminophen [From Percocet] Allergy Mild N/V Verified 12/14/20 15:25 adhesive tape Allergy Mild RED AND Verified 12/14/20 15:25 SORE butorphanol Allergy Mild N/V Verified 12/14/20 15:25 lubiprostone [From Amitiza] Allergy Mild Rash Verified 12/14/20 15:25 morphine Allergy Mild SWELLING Verified 12/14/20 15:25 oseltamivir [From Tamiflu] Allergy Mild N/V Verified 12/14/20 15:25 linaclotide [From Linzess] AdvReac Intermediate starry eye Verified 12/14/20 15:25 oxycodone AdvReac Mild AGITATION Verified 12/14/20 15:25 Home Medications Medication Instructions Recorded Confirmed Type clonazepam 1 mg tablet 1 mg PO BID 10/11/19 12/14/20 History docusate sodium 100 mg capsule 100 mg PO BID 10/11/19 12/14/20 History levomilnacipran 80 mg capsule,24 80 mg PO QAM 10/11/19 12/14/20 History hr,extended release levothyroxine 88 mcg capsule 88 mcg PO QAM 10/11/19 12/14/20 History melatonin 10 mg tablet 10 mg PO HS 10/11/19 12/14/20 History potassium chloride 20 mEq 20 meq PO BID 10/11/19 12/14/20 History tablet,extended release spironolactone 25 mg tablet 25 mg PO BID 10/11/19 12/14/20 History trazodone 100 mg tablet 100 mg PO HS tab 10/11/19 12/14/20 History insulin glargine 100 unit/mL 20 unit SQ HS 12/04/19 12/14/20 History subcutaneous solution cholecalciferol (vitamin D3) 25 25 mcg PO QAM 01/26/20 12/14/20 History mcg (1,000 unit) capsule furosemide 40 mg tablet 40 mg PO BID 01/26/20 12/14/20 History hydroxyzine HCl 25 mg tablet 50 mg PO TID PRN 01/26/20 12/14/20 History cyanocobalamin (vitamin B-12) 1,000 mcg IM Q90D 06/07/20 12/14/20 History ondansetron HCl [Zofran] 4 mg PO Q8H PRN 06/07/20 12/14/20 History lubiprostone 8 mcg capsule 8 mcg PO BID #60 cap 03/19/21 04/24/21 Rx docusate sodium [Stool Softener] 100 mg PO QAM 11/14/20 12/14/20 History polyethylene glycol 3350 [Miralax] 17 g PO BID 11/14/20 12/14/20 History esomeprazole magnesium 40 mg 40 mg PO BID 30 Days #60 cap 11/15/20 12/14/20 Rx capsule,delayed release pregabalin 75 mg capsule 75 mg PO BID #60 cap 11/15/20 12/14/20 Rx famotidine 20 mg tablet 20 mg PO BID 12/10/20 12/14/20 History hydrocodone 7.5 mg-acetaminophen 1 tab PO Q4 PRN #18 tab 12/10/20 12/14/20 Rx 325 mg tablet Patient History Medical History Anxiety disorder Arthritis Asthma Cervical postlaminectomy syndrome Chronic kidney disease F/U DR CUONG SARGENT COPD (chronic obstructive pulmonary disease) On 2L O2 chronically, does not use any inhalers DDD (degenerative disc disease) Dependence on continuous supplemental oxygen 2L via NC Diabetes mellitus On insulin 20 units HS Greater trochanteric bursitis of left hip History of COVID-19 DX'D END 06/2020-FEVER, BODY ACHES, COUGH-NOT HOSPITALIZED-SYMPTOMS RESOLVED HTN (hypertension) Hyperlipidemia Nausea and vomiting Pt reports she has not had this for the past 4 months. Obesity Postlaminectomy syndrome of lumbosacral region Presence of intrathecal pump [place] PAIN MGT-- DILAUDID Sacroiliac joint pain Sleep apnea JUST OXYGEN CONT 2L/IN -- COULD NOT TOLERATE CPAP DUE TO CLAUSTROPHOBIA. Spinal stenosis of thoracolumbar region Stomach ulcer HX Surgical History H/O colonoscopy H/O neck surgery H/O: hysterectomy History of knee replacement, total LEFT AND RIGHT History of open reduction and internal fixation (ORIF) procedure RIGHT FOOT Hx laparoscopic cholecystectomy Hx of tonsillectomy Hx of total shoulder replacement RIGHT AND LEFT Nausea and vomiting after administration of anesthetic agent AND SLOW TO WAKE UP X 1 Previous back surgery Family History Father Diabetes Stomach ulcer Cancer Hypertension Daughter Family history of reaction to anesthesia PONV Social History Smoking Status: Never smoker Second Hand Exposure: Yes; Hx Alcohol Use: No Hx Substance Use: No Preferred Language: American Communication Ability: Effective Visual Impairment: No Limitations Hearing Ability: Use of Hearing Aid Sheetfed Press Operator Required: No Beliefs That Will Affect Care: Orthodoxy Orthodoxy Beliefs: Advent. marital status: Current Living Situation: Spouse current occupational status: retired Feels Safe at Home: Yes Assistive Devices: Glasses, Hearing Aid - Bilateral, Oxygen - Continuous and Walker Physical Exam Physical Exam: General: Patient sitting quietly in hospital bed calmly eating breakfast on entrance to the room. She does not appear in any acute distress or discomfort on visual inspection. The patient is morbidly obese and physically deconditioned. Speech and thought process appropriate. Cognition intact. Abdomen: Abdominal binder was removed for visual inspection. Prineo dressing has been intervally removed. Left lower quadrant abdominal site is well approximated without any breakdown, area edema, erythema, fluctuance. Dry sterile gauze was placed with Medipore. 2 ginny at the left lateral flank were noted. There is no erythema fluctuance or drainage surrounding ginny. Both ginny were removed intact on today's examination. Back/spine: Midline surgical incision thoracolumbar junction was visualized. Steri-Strips are intact. Dressing was removed for visual inspection which had no discharge, erythema, fluctuance present. The wound is well approximated. Nontender to palpation. Multiple well-healed nonsurgical incisions over the lower lumbar spine. The patient has minimal lumbosacral junction tenderness. She is mildly tender over the left SI joint nontender over the right. She has minimal tenderness throughout her gluteal left-sided musculature. Nontender on the right. Limited range of motion all planes. Lower extremity: SLR negative bilaterally. She is exquisitely tender over the left greater trochanter to direct palpation (upon palpation she states that this is her current concern for pain) and nontender on the right. Neurological and cranial nerves grossly intact. Patient requested assistance rolling from a supine to a lateral position in bed initially, but with encouragement she was able to do so with minimal difficulty. Results (Pain Clinic) Diagnostic Review CT: non enhanced and reports reviewed CT Findings: 12/14/20 CT SCAN OF THE ABDOMEN AND PELVIS WITHOUT IV CONTRAST CLINICAL HISTORY: Low back pain. COMPARISON STUDY: Abdominal CT dated 06/07/2020. TECHNIQUE: CT scan of the abdomen and pelvis is performed from the lung bases to the proximal femora. Images are reviewed in the axial, sagittal, and coronal planes. IV contrast was not administered for this examination. A dose lowering technique was utilized adhering to the principles of ALARA. CT DOSE: 1368.15 mGy.cm FINDINGS: Lung bases: The heart is top normal in size and without pericardial effusion. There are coronary artery calcifications. A small hiatal hernia is noted. The lung bases are clear noting bibasilar scarring/atelectasis. Liver: The unenhanced liver is normal in size, contour, and attenuation. There is no intrahepatic biliary ductal dilatation. Gallbladder: Surgically absent. Spleen: Normal in size and attenuation. Pancreas: The unenhanced pancreas is atrophic and grossly unremarkable. Adrenal glands: Unremarkable. Kidneys: The unenhanced kidneys demonstrate cortical atrophy and are without hydronephrosis. There is a punctate nonobstructing right renal calculus. No left renal calculi are identified. Small simple and complex/hyperdense renal cysts measure up to 11 mm. These are unchanged from previous. Abdominal vasculature: The abdominal aorta is normal in course and caliber no ting mild to moderate atherosclerotic calcification. Postoperative change is noted involving the inferior vena cava. Bowel: There is mild to moderate colonic fecal retention. No bowel obstruction is seen. The appendix is not identified and reported surgically absent Peritoneum: There is no intraperitoneal free air or abdominal ascites. There is diastases of the rectus musculature with laxity of the ventral abdominal wall. Lymphadenopathy: None. Pelvic viscera: The bladder is normal as visualized. The uterus is surgically absent. No adnexal lesion is seen. Skeletal structures: The skeletal structures are osteopenic. Extensive postlaminectomy change is noted throughout the lumbar spine. There are chronic compression deformities of T11 and T12 with previous vertebroplasty at T12. Spondylotic change is noted throughout the lumbar spine. No lytic or blastic lesions are seen. Postoperative change is partially visualized in the right proximal femur. Intrathecal device is present within the left lower quadrant abdominal wall. Catheters enter the central canal in the upper lumbar region. A bone graft donor site is suggested in the left ilium. There is fatty atrophy of the paraspinous musculature. IMPRESSION: 1. No acute infectious or inflammatory findings are identified in the abdomen or pelvis. 2. Punctate nonobstructing right renal calculus. 3. Extensive chronic, postoperative, and degenerative change throughout the lumbar spine is similar to prior studies. No acute bony abnormality is seen. 4. Additional findings as above.
[2020-12-16] MEDS: clonazePAM 1 MG TAB PO SCH (10:36)
[2020-12-16] MEDS: PREGABALIN 75 MG CAP PO SCH (10:37)
[2020-12-16] MEDS: INSULIN ASPART 100 UNITS/ML 3 ML PEN SC SCH ×2 (10:49→12:41)
--- NOTE | 2020-12-16 18:51 | Discharge Summary ---
Date of Service December 16, 2020 Admission HPI Per Admitting Provider 80 YOF with history of obesity, chronic back pain with postlaminectomy syndrome requiring an intrathecal pain pump. Her intrathecal pain pump was recently changed out on 12/03/20 secondary to inoperability with inability to withdraw CSF. Patient now has implanted intrathecal pump with single agent hydromorphone. Patient comes in today for 10/10 pain that is her chronic pain but now with pain that goes into her left buttocks and down her lateral leg and terminates at the knee. The patient had her pump increased by 30% by the pain service on 12/06/20 for continued complaints of 10/10 pain to her hips and back. She was discharged on the 06 of December and had a follow up appointment on 12/10/20 with the pain management service. Patient pain that she is experiencing now was also noted at that time, and plan of care was communicated with the patient and the on that visit. Steroid injections were deferred secondary to recent surgical incisions, Ice therapy and Biofreeze as well as continuing her hydrocodone for breakthrough pain. Per the and the patient this pain has not improved, so they came to the emergency room today. The patient was evaluated with a abdominal CT scan, was given 1gm IV Tylenol and 0.5mg Hydromorphone. The hospitalist service was contacted for admission for retractable 10/10 pain. Upon my entering the room the patient was resting with her eyes closed. She immediately woke up complaining of pain to her left leg. Patient describes the pain as constantly there and sharp that travels along her lower back and then into her left buttocks and down her leg. This pain has not changed since her appointment on the , but is more constant at this time. I traced the pain that she described with my hand and is consistent with sciatic pain. Patient will be admitted for pain control and consult placed to pain management service. PT/OT consult will be placed and adjuvant therapy will be added to include Toradol, Lidoderm patch, heat/ice therapy. Her incision site looks well and continues to have her abdominal binder on. Patient chronic medical history is also positive for orthopnea which she sleeps on 2 pillows at home and 2LNC, HTN, GERD, DMII on Lantus, IBS with n/v, ? COPD, HLD, hypothyroidism and RLS. Principal Diagnosis Chronic back pain Discharge Exam Constitutional WD/WN, vitals as above Eyes EOM intact bilaterally; no conjunctival abnormality ENMT external ear and nose normal, oropharynx normal Neck trachea midline, no thyromegaly normal visual inspection Respiratory normal respiratory effort, lungs clear to auscultation no respiratory distress Cardiovascular RRR, no murmur, no edema Gastrointestinal (Abdomen) Inspection/Auscultation: abdomen normal to inspection; abdomen not distended Musculoskeletal no cyanosis or clubbing, extremities motor strength 5/5 Skin no rashes, warm and dry Neurologic moves all extremities and awake Psychiatric Orientation: alert, oriented to person and cooperative Discharge Data Allergies Allergy/AdvReac Type Severity Reaction Status Date / Time codeine Allergy Intermediate SWELLING Verified 12/14/20 15:25 fluticasone Allergy Intermediate swelling Verified 12/14/20 15:25 iodine Allergy Intermediate Rash Verified 12/14/20 15:25 shellfish derived Allergy Intermediate SWELLS Verified 12/14/20 15:25 Sulfa (Sulfonamide Allergy Intermediate SWELLING Verified 12/14/20 15:25 Antibiotics) acetaminophen [From Percocet] Allergy Mild N/V Verified 12/14/20 15:25 adhesive tape Allergy Mild RED AND Verified 12/14/20 15:25 SORE butorphanol Allergy Mild N/V Verified 12/14/20 15:25 lubiprostone [From Amitiza] Allergy Mild Rash Verified 12/14/20 15:25 morphine Allergy Mild SWELLING Verified 12/14/20 15:25 oseltamivir [From Tamiflu] Allergy Mild N/V Verified 12/14/20 15:25 linaclotide [From Linzess] AdvReac Intermediate starry eye Verified 12/14/20 15:25 oxycodone AdvReac Mild AGITATION Verified 12/14/20 15:25 Consultations 12/14/20 16:02 ED Decision to Admit Stat 12/14/20 19:44 Consult Pain Management Routine Ordered Studies 12/14/20 13:28 CT abd pelvis wo con Stat Hospital Course (1) Sacroiliac joint pain: Patient current exam and pain location is mostly consistent with sciatic impingement, with also SI joint tenderness on right and left side - Patient states pain 10/10- no facial grimace, HR 70's, normotensive, normal respiratory rate upon admission - reports no change after IV Dilaudid given in ER - Toradol 15mg IV x1- was given - Lidoderm patch started and hydrocodone po prn given Pain already much improved, but is quite drowsy - Discussed with pain management on Wednesday. No further PO or IV narcotic pain meds. No present adjustment to her pump. Started on Cymbalta and slight increase in her Lyrica. Will see Pain Management in 3 weeks for surgical check. (2) Chronic back pain: As above- intrathecal pain pump with hydromorphone 2mg/ml - Stop hydrocodone - Continue her pregabalin -> Increased to 100 mg PO BID. - Added Cymbalta 20 mg PO daily (3) Presence of intrathecal pump: Recently changed- pump report 12/10/20- per pain managment (4) Dependence on continuous supplemental oxygen: likely component of obesity hypoventilation syndrome, no ABG- no PFTs- chronically elevated HCO3 supports - not on CPAP at home, has never had a sleep study performed, would beneficial as outpatient with her chronic pain medications. - She also has COPD listed on her medical problems but likely this is restrictive in nature- she is on no RADHA, LABA/LAMA - If needed can add Combivent or albuterol single agent. (5) Obesity: BMI 52 desperately needs weight loss program, calorie restriction (6) HTN (hypertension): BPs controlled Continue Lasix Continue Spironolactone (7) Diabetes mellitus: Moderately controlled with recent A1C 7.9% glucose here is controlled - Continue Lantus 20 units hs from home add on SSI Novolog (8) DDD (degenerative disc disease): As above, chronic (9) Sleep apnea: continue 2LNC continuous does not tolerate CPAP (10) GERD (gastroesophageal reflux disease): continue pepcid and PPI bid (11) COPD (chronic obstructive pulmonary disease): no acute issues not on maintenance inhalers and no PFTs available (12) Chronic kidney disease: 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 -Avoid nephrotoxins -renally dose meds when appropriate (13) Chronic constipation: continue docusate miralax bid (14) Anxiety disorder: is on high doses of clonazepam 1mg po bid, along with trazadone 100 qhs, hydroxyzine, and Fetzima (which needs to br brought in from home) is drowsy when I saw her caution with so many SLOT EDITOR depressing meds in morbidly obese patient with likely obesity hypovent syndrome, especially with hydrocodone po use recommend cutting down on clonazepam dose as outpt slowly (15) DVT prophylaxis: SQ Heparin Dispo-await Pain Management consult on Wednesday, likely dc to home with home health after that if pain improved Total Time Total Time Spent Total Time Spent (In Minutes): 35 Discharge Plan Discharge Items Patient Disposition: Home - Home Health Services Reason For Visit: PAIN Discharge Diagnosis: Sciatic pain Activity: Resume your previous activity Non-emergency contact: Primary Care Provider and Pain Management Call non-emergency contact if: your symptoms worsen Follow-up/Referrals: Victoria Kelley DO [Physician] - 01/06/21 10:45 am (Please see Dr. Kelley in 3 weeks. APPT WITH [facility]) Ena Coreas MD [Primary Care Provider] - ([facility] OFFICE STATES THEY WILL CALL PATIENT FOR HOSPITAL FOLLOW UP.) Diet: Carb Consistent or DM2 and Heart Healthy Addtl Attending Provider Instructions: As per your discussion with Dr. Kelley, please try the Cymbalta as a way to improve your pain. She has also adjusted your Lyrica, but feels that you need to move away from opioid pain medications to prevent a complication like breathing difficulties and constipation. The Cymbalta can help calm pain signals going to the brain and make your overall pain better. You can also use the lidocaine patch on the most painful spot of your back (except over your sutures/stitches/surgery site) for 12 hours, then remove for [address]. [address] Kelley in the office in 3 weeks to check the surgery site and discuss how you are feeling and whether a spinal injection could help you. Pending Studies at Discharge: No Stand-Alone Forms: My [facility] [employer], Smoking Cessation Medications and DC Order Prescriptions: New duloxetine 20 mg Capsule,Delayed Release(Dr/Ec) 20 mg PO QAM Qty: 30 RF: 0 lidocaine 5 % Adhesive Patch,Medicated 1 patch transdermal QAM Qty: 30 RF: 0 pregabalin [Lyrica] 100 mg capsule 100 mg PO BID Qty: 60 RF: 0 Continued cholecalciferol (vitamin D3) 25 mcg (1,000 unit) capsule 25 mcg PO QAM RF: 0 hydroxyzine HCl 25 mg tablet 50 mg PO TID PRN (Reason: Anxiety) RF: 0 furosemide [Lasix] 40 mg tablet 40 mg PO BID RF: 0 famotidine 20 mg tablet 20 mg PO BID RF: 0 potassium chloride 20 mEq tablet extended release 20 meq PO BID RF: 0 trazodone 100 mg tablet 100 mg PO HS RF: 0 clonazepam 1 mg tablet 1 mg PO BID RF: 0 Fetzima 80 mg capsule,extended release 24 hr 80 mg PO QAM RF: 0 spironolactone 25 mg tablet 25 mg PO BID RF: 0 melatonin 10 mg tablet 10 mg PO HS RF: 0 levothyroxine 88 mcg capsule 88 mcg PO QAM RF: 0 docusate sodium 100 mg capsule 100 mg PO BID RF: 0 Lantus U-100 Insulin 100 unit/mL solution 20 unit SQ HS RF: 0 Amitiza 8 mcg capsule 8 mcg PO BID Qty: 60 RF: 2 esomeprazole magnesium [Nexium] 40 mg capsule,delayed release(DR/EC) 40 mg PO BID 30 Days Qty: 60 RF: 2 cyanocobalamin (vitamin B-12) 1,000 mcg/mL solution 1,000 mcg IM Q90D RF: 0 ondansetron HCl [Zofran] 4 mg tablet 4 mg PO Q8H PRN (Reason: Nausea And Vomiting) RF: 0 polyethylene glycol 3350 [Miralax] 17 gram Powder In Packet 17 g PO BID RF: 0 docusate sodium [Stool Softener] 100 mg Capsule 100 mg PO QAM RF: 0 Discontinued hydrocodone-acetaminophen 7.5-325 mg tablet 1 tab PO Q4 PRN (Reason: pain) Qty: 18 RF: 0 pregabalin 75 mg capsule 75 mg PO BID Qty: 60 RF: 2 Discharge Orders: Discharge Order (Routine); Ordered 12/16/20 Ordered By: Efe Patton/Other Patient Handouts: High Blood Sugar (Hyperglycemia), Hypoglycemia (Low Blood Sugar), Managing Type 2 Diabetes Admission Data Admit Date/Time: 12/14/20 18:28 Attending Provider: Efe Elmore Admit Provider: Efe Elmore Primary Care Provider: Ena Coreas Other Providers: Victoria Kelley ; [place] Other Interventions: Discharge Summary Assessment (RN) Last Done: 12/16/20 13:19 Coding Level of Care Code D/C Day Management >30 mins Diagnoses Sacroiliac joint pain M53.3 Chronic back pain M54.42; G89.29 Back pain location: low back pain Back pain laterality: unspecified Sciatica presence: with sciatica Sciatica laterality: sciatica of left side Presence of intrathecal pump Z97.8 Dependence on continuous supplemental oxygen Z99.81 Obesity E66.01; Z68.41 Obesity type: due to excess calories Obesity classification: adult class 3 (BMI >= 40) Serious obesity comorbidity presence: with serious comorbidity Body mass index: BMI 40.0-44.9 HTN (hypertension) I10 Hypertension type: essential hypertension Diabetes mellitus E11.69; Z79.4 Diabetes mellitus type: type 2 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
== END 2020-12-16 13:40 | disposition home health service (06) | DRG 552 ==
LOC: ED 12:27 → SUATTDRO 18:28 → 3E 18:28